=== PATIENT | male | born 1955 | race Caucasian/White ===

== ENCOUNTER 2021-11-16 05:38 | Observation (INO) | payer OTHER, SELFPAY ==
[2021-11-16] VITALS (8 sets, daily range): BP systolic 148–170; BP diastolic 83–102; PULSE 72–100; RESP 16–20; TEMP 36.1–37.1; O2SAT 94–98; BMI 18.1
--- NOTE | ~2021-11-16 | CT_ITS ---
EXAMINATION: CT CHEST WITH CONTRAST CLINICAL INFORMATION: Heavy smoker. Weight loss. COMPARISON: Previous chest x-ray May [address] February 2020 TECHNIQUE: Multidetector volumetric CT imaging of the chest was obtained after the administration of 50 mL of Omnipaque 350 intravenous contrast without immediate adverse reactions. Axial MIP volume rendering provided. Sagittal and coronal reformatted images were obtained. This CT examination was performed using dose optimization techniques as appropriate, variously including the following: *Automated exposure control *Adjustment of mA and/or kV according to patient size (this includes techniques or standardized protocols for targeted exams where dose is matched to indication/reason for exam; i.e. extremities or head) *Use of iterative reconstruction technique DLP: 163 mGy-cm FINDINGS: RESIDENT CARE SPEC: Hyperinflation LUNGS: The lungs are well inflated. There is evidence of mild emphysema. There are innumerable small peribronchial 1 to 2 mm nodules scattered areas of mild bronchial wall thickening probably representing respiratory bronchiolitis related to smoking no suspicious pulmonary nodule. This does not appear appreciably changed from prior exam. No endobronchial or endotracheal lesion. MEDIASTINUM: Atherosclerotic disease. Normal heart size. No pericardial effusion. No enlarged hilar or mediastinal lymph nodes. There is question of wall thickening of the distal thoracic esophagus and proximal stomach. PLEURA: There is no pleural effusion. No pleural mass or thickening. AXILLA: No lymphadenopathy. UPPER ABDOMEN: Unremarkable OSSEOUS STRUCTURES: There is a moderate T12 vertebral body compression fracture that may be recent. There is a mild to moderate old T7 vertebral body compression fracture. CT/CT chest w IV con IMPRESSION: Emphysema. Probable respiratory bronchiolitis related to smoking areas of bronchial wall thickening and innumerable small 1 to 2 mm peribronchial nodules. No suspicious pulmonary nodule. Atherosclerotic disease. Question mild wall thickening of the distal thoracic esophagus and proximal stomach. Fleischner guidelines were followed.
--- NOTE | ~2021-11-16 | CT_ITS ---
EXAMINATION: CT ABDOMEN AND PELVIS WITH CONTRAST CLINICAL INFORMATION: Weight loss. Vomiting. COMPARISON: None TECHNIQUE: Multidetector volumetric images were obtained from the superior aspect of the liver through the pubic symphysis following administration 100 mL of Omnipaque 350 intravenous contrast. Sagittal and coronal reformatted images were obtained on the technologist's workstation. Oral contrast: Yes This CT examination was performed using dose optimization techniques as appropriate, variously including the following: *Automated exposure control *Adjustment of mA and/or kV according to patient size (this includes techniques or standardized protocols for targeted exams where dose is matched to indication/reason for exam; i.e. extremities or head) *Use of iterative reconstruction technique DLP: 399 mGy-cm FINDINGS: LUNG BASES: The visualized lung bases are unremarkable. LIVER, GALLBLADDER, AND BILIARY TREE: The liver is normal in size, shape, and attenuation. No focal hepatic lesion or biliary ductal dilatation is present. The gallbladder is unremarkable with no evidence of radiopaque gallstones, gallbladder wall thickening, or obvious pericholecystic inflammatory changes. PANCREAS: Unremarkable. SPLEEN: Unremarkable. ADRENAL GLANDS: Unremarkable. KIDNEYS AND URETERS: The kidneys are normal in size, shape, and attenuation. No hydronephrosis, hydroureter, or calculi seen. No perinephric stranding. BLADDER: Unremarkable. GASTROINTESTINAL TRACT: The small and large bowel are unremarkable. The appendix is unremarkable. There is question of wall thickening of the proximal stomach and distal thoracic esophagus. ABDOMINAL WALL: No significant hernia is appreciated. LYMPH NODES: Shotty mediastinal and small bowel mesentery lymphadenopathy. No enlarged lymph nodes. No ascites. VASCULAR: Severe atherosclerotic disease. Mild ectasia of the upper abdominal aorta measuring 2.5 cm. No aneurysm. PELVIC VISCERA: Unremarkable. OSSEOUS STRUCTURES: Orthopedic hardware in the right proximal femur. Moderate to severe recent-appearing T12 vertebral body compression fracture. Generative changes of the spine and hip joints. CT/CT abdomen pelvis w IV con IMPRESSION: Question wall thickening of the distal esophagus and proximal stomach. Severe atherosclerotic disease. Shotty small bowel mesentery and retroperitoneal lymphadenopathy. No enlarged lymph nodes seen. Moderate to severe recent-appearing T12 compression fracture. Fleischner guidelines were followed.
--- NOTE | ~2021-11-16 | CT_ITS ---
EXAMINATION: CT SOFT TISSUE NECK WITH CONTRAST CLINICAL INFORMATION: Difficulty swallowing. Weight loss. Cachectic. COMPARISON: None available. TECHNIQUE: Multidetector helical imaging was performed in the axial plane following the administration of 100 mL of Omnipaque 350 intravenous contrast. Multiple axial reformats and coronal/sagittal reconstructions were created the technologist workstation for review. This CT examination was performed using dose optimization techniques as appropriate, variously including the following: *Automated exposure control. *Adjustment of mA and/or kV according to patient size (this includes techniques or standardized protocols for targeted exams where dose is matched to indication/reason for exam; i.e. extremities or head). *Use of iterative reconstruction technique. DLP: 871 mGy-cm FINDINGS: No significant cutaneous thickening or subcutaneous inflammation. No discrete fluid collection within the deep tissues of the neck. The premaxillary, retromaxillary, pterygopalatine fossa, orbital apical, parapharyngeal, and prelaryngeal adipose tissue is maintained. Normal appearance of the parotid, submandibular, and thyroid glands. Scattered subcentimeter lymph nodes bilaterally, none of which are pathologically enlarged or abnormally enhancing. No demonstrated focal lesion or abnormal enhancement within the intrinsic tissues of the tongue or floor of mouth. Normal mucosal contours of the pharynx and larynx without abnormal enhancement. Normal appearance of the hyoid bone, thyroid cartilage, or cartilaginous trachea. The airways remains widely patent. No radiopaque foreign bodies. The atlantooccipital and atlantoaxial articulations remain well aligned. Straightening of the normal cervical lordosis. There is fusion of the C2-C3 and C4-C5 facets. No evidence of acute fracture or subluxation of the cervical spine. The vertebral body heights are maintained. Advanced degenerative disc disease from C4-C7. Moderate degenerative disc disease at all additional cervical levels. Facet and uncovertebral joint arthropathy leads osseous encroachment on the neural foramina from C3-C7. No evidence of epidural collection. There is no prevertebral soft tissue swelling. Normal opacification of the cervical arterial and venous structures. The visualized portion of the skull base is without significant abnormalities. Limited evaluation of the intracranial structures at the skull base are notable for moderate underlying microangiopathy and generalized cerebral volume loss. Mild mucosal thickening of the paranasal sinuses. The mastoid air cells and middle ear cavities are clear. Multifocal odontogenic enamel erosions and periapical lucencies. CT Upper Chest: Moderate centrilobular emphysema of the visualized upper lungs. There are irregular subpleural reticulations and punctate pulmonary nodules scattered throughout the visualized upper lungs (better evaluated on concurrent CT of the chest). No demonstrated abnormalities of the visualized upper mediastinum. CT/CT soft tissue neck w IV con IMPRESSION: 1. No demonstrated focal lesion, collection, pathologically enlarged lymphadenopathy, or abnormal enhancement within the soft tissues of the neck. 2. Limited evaluation of the upper chest is notable for underlying emphysema with multifocal scattered subcentimeter pulmonary nodules and subpleural reticulation. Findings are better characterized on concurrent CT of the chest. 3. Moderate to advanced multilevel degenerative spondyloarthropathy of the cervical spine.
[2021-11-16 06:24] LABS: Hematocrit 42.5 % (42.0-52.0); Hemoglobin 14.9 g/dl (14.0-18.0); Mean Corpuscular HGB Conc 35.1 g/dl (31.0-36.0); Mean Corpuscular Hemoglobin 34.4 pg (27.0-33.0); Mean Corpuscular Volume 98.2 fL (80.0-98.0); Mean Platelet Volume 7.7 fL (9.4-12.4); Platelet Count 355 X10*3/uL (160-400); Red Blood Count 4.33 X10*6/uL (4.60-5.80); Red Cell Distribution Width 11.4 % (11.0-16.0); White Blood Count 6.6 X10*3/uL (4.8-10.8)
[2021-11-16 06:42] LABS: Alanine Aminotransferase 14 U/L (0-40); Alkaline Phosphatase 100 U/L (39-117); Anion Gap 17 (12-20); Aspartate Amino Transferase 17 U/L (5-37); Bilirubin Total 0.5 mg/dL (0.0-1.0); Blood Urea Nitrogen 19 mg/dL (9-16); Calcium 9.5 mg/dL (8.4-10.2); Carbon Dioxide 30 mmol/L (22-29); Chloride 87 mmol/L (96-108); Creatinine Clr Calc Pharmacy 72.1; Estimated Glomerular Filt Rate > 60; Glucose Random 140 mg/dL (60-115); Potassium 3.2 mmol/L (3.3-5.1); Sodium 131 mmol/L (135-145); Total Protein 7.1 g/dL (6.5-8.0)
--- NOTE | 2021-11-16 07:39 | ED.WEAKNESS ---
HPI - Weakness General Chief complaint: General Medical Stated complaint: feeling lethargic and weak, n/v, throat pain Time Seen by Provider: 11/16/21 07:22 Source: patient Mode of arrival: ambulatory Limitations: no limitations History of Present Illness HPI Narrative: 66 yo male with no PMH here with c/o weight loss about 30lbs, inability to tolerate PO after violent vomiting episode on Thursday. He has been a heavy smoker since he was 19. He cannot tolerate solid foods. He feels like his throat is on fire. MD Complaint: generalized weakness Onset (ago): day(s) (6) Duration: progressively worsening Location: generalized Migration: none Severity: moderate Quality: dull Relieving factors: none Exacerbating factors: other (trying to eat) Context: recent illness Associated symptoms: loss of appetite, myalgias and other (weakness, throat pain) Related Data Home Medications Medication Instructions Recorded Confirmed acetaminophen 325 mg tablet 650 mg PO Q6H PRN Back Pain 11/16/21 11/16/21 (Tylenol) amlodipine 5 mg tablet 1 tab PO DAILY 11/16/21 11/16/21 Allergies Allergy/AdvReac Type Severity Reaction Status Date / Time No Known Allergies Allergy Unverified 12/01/19 16:48 Review of Systems Review of Systems: Constitutional : No Weight loss, No Fever, No Chills, pos Fatigue, pos Malaise ENT/Mouth : pos sore throat, No Rhinorrhea Eyes: No Eye Pain, No Swelling, No Redness Cardiovascular : No Chest Pain, No SOB, No Dyspnea on Exertion, No Orthopnea, No Edema, No Palpitations Respiratory : No Cough, No Sputum, No Wheezing Gastrointestinal : pos Nausea, No Vomiting, No Diarrhea, No Constipation, No abdominal Pain, No Hematochezia, No Melena Genitourinary : No Dysuria, No Urinary Frequency, No Hematuria, Musculoskeletal : No joint pain, No Myalgias, No Joint Swelling Skin : No Skin Lesions, No rash Neuro : pos Weakness, No Numbness, No Dizziness, No Headache Psych : No Anxiety/Panic, No Depression Heme/Lymph: No Bruising, No Bleeding,No Lymphadenopathy Endocrine : No Polyuria, No Polydipsia All other systems reviewed and are negative PMFSH Past Medical History Attestation statement: The following information was validated with the patient. Medical History No pertinent past medical history Social History Social History (Updated 11/16/21 @ 08:10 by Emerald Edmonds DO) Patient Tobacco Use Status: Current everyday Tobacco user Advance Directives: No Advance Directives Information Provided: No Physical Exam Vital Signs: Vital Signs: Last Vital Signs Temp 98.7 F 11/16/21 07:24 Pulse 90 11/16/21 09:03 Resp 16 11/16/21 09:03 BP 166/92 H 11/16/21 09:03 Pulse Ox 94 11/16/21 09:03 O2 Del Method 11/16/21 09:03 BMI result Body Mass Index 18.1 Appearance: Alert. Oriented X3. No acute distress. Temporal wasting, cachectic Eyes: Pupils equal, round and reactive to light. ENT: Pharynx dry MM with moderate erythema but no patches or swelling noted Neck: Normal inspection. Neck supple. CVS: Normal heart rate and rhythm. Pulses normal. Respiratory: No respiratory distress. Breath sounds normal. Abdomen: Soft and nontender. Skin: Skin warm and dry. Normal skin color. poor skin turgor. Extremities: No lower extremity edema. No calf ttp Neuro: Oriented X 3. No motor deficit. No sensory deficit. Course Course Course Narrative: cannot take in oral - will need admission for IVF and EGD Dr. Boone notified, plan to admit put on fluids MDM - Weakness MDM Narrative Medical decision making narrative: 66 yo male with no reported PMH not on medications, heavy smoker since age 19 comes in with rapid weight loss since vomiting thursday states he cannot keep solids or most liquids down. At this tmie he will need IVF, K repletion, IV pepcid. CT scans of neck/chest/abdomen for mass/obstruction. Dispo per results and findings. Lab Data Result diagrams: 11/16/21 06:10 11/16/21 06:10 Labs: Lab Results 11/16/21 11/16/21 11/16/21 Range/Units 06:10 06:10 07:50 WBC 6.6 (4.8-10.8) X10*3/uL RBC 4.33 L (4.60-5.80) X10*6/uL Hgb 14.9 (14.0-18.0) g/dl Hct 42.5 (42.0-52.0) % MCV 98.2 H (80.0-98.0) fL MCH 34.4 H (27.0-33.0) pg MCHC 35.1 (31.0-36.0) g/dl RDW 11.4 (11.0-16.0) % Plt Count 355 (160-400) X10*3/uL MPV 7.7 L (9.4-12.4) fL Absolute Nucleated RBC 0.000 (0.0-0.012) X10*3/uL Nucleated RBC % (auto) 0.0 (0.0-0.2) /100WBC Sodium 131 L (135-145) mmol/L Potassium 3.2 L (3.3-5.1) mmol/L Chloride 87 L (96-108) mmol/L Carbon Dioxide 30 H (22-29) mmol/L Anion Gap 17 (12-20) BUN 19 H (9-16) mg/dL Creatinine 0.77 (0.5-1.4) mg/dL Estim Creat Clear Calc 72.1 Estimated GFR > 60 Random Glucose 140 H (60-115) mg/dL Lactic Acid (0.5-2.0) mmol/L Calcium 9.5 (8.4-10.2) mg/dL Magnesium 1.9 (1.6-2.6) mg/dL Total Bilirubin 0.5 (0.0-1.0) mg/dL AST 17 (5-37) U/L ALT 14 (0-40) U/L Alkaline Phosphatase 100 (39-117) U/L Total Protein 7.1 (6.5-8.0) g/dL Albumin 4.0 (3.5-5.0) g/dL Lipase 66 (8-78) U/L COVID-19 (LALITHA) Negative (Negative) COVID-19 Clin Com See Note 11/16/21 Range/Units 07:50 WBC (4.8-10.8) X10*3/uL RBC (4.60-5.80) X10*6/uL Hgb (14.0-18.0) g/dl Hct (42.0-52.0) % MCV (80.0-98.0) fL MCH (27.0-33.0) pg MCHC (31.0-36.0) g/dl RDW (11.0-16.0) % Plt Count (160-400) X10*3/uL MPV (9.4-12.4) fL Absolute Nucleated RBC (0.0-0.012) X10*3/uL Nucleated RBC % (auto) (0.0-0.2) /100WBC Sodium (135-145) mmol/L Potassium (3.3-5.1) mmol/L Chloride (96-108) mmol/L Carbon Dioxide (22-29) mmol/L Anion Gap (12-20) BUN (9-16) mg/dL Creatinine (0.5-1.4) mg/dL Estim Creat Clear Calc Estimated GFR Random Glucose (60-115) mg/dL Lactic Acid 1.7 (0.5-2.0) mmol/L Calcium (8.4-10.2) mg/dL Magnesium (1.6-2.6) mg/dL Total Bilirubin (0.0-1.0) mg/dL AST (5-37) U/L ALT (0-40) U/L Alkaline Phosphatase (39-117) U/L Total Protein (6.5-8.0) g/dL Albumin (3.5-5.0) g/dL Lipase (8-78) U/L COVID-19 (LALITHA) (Negative) COVID-19 Clin Com Discharge Plan Discharge Clinical Impression: Adult failure to thrive, Acute dehydration, Acute hypokalemia, Esophagitis Patient Disposition: Admitted As Inpatient
[2021-11-16] MEDS: Famotidine/PF 20 MG/2 ML VIAL IVPUSH (07:58)
[2021-11-16] MEDS: Potassium Chloride/H20 10 MEQ/100 ML PIGGYBACK 100 MEQ IV ×4 (08:02→12:16)
[2021-11-16] MEDS: Lactated Ringers 1,000 ML 999 ML IV (08:02)
[2021-11-16 08:12] LABS: COVID-19 Test Negative (Negative); IDNOW Serial# 16C4AD1C
[2021-11-16 08:15] LABS: Lactic Acid 1.7 mmol/L (0.5-2.0)
[2021-11-16 08:19] LABS: Magnesium 1.9 mg/dL (1.6-2.6)
[2021-11-16 08:49] LABS: Lipase 66 U/L (8-78)
[2021-11-16] MEDS: iohexoL 350 MG/ML 100 ML INFUS..BTL IV (08:59)
[2021-11-16] MEDS: Lactated Ringers 1,000 ML 100 ML IVCONT ×2 (11:01→21:25)
[2021-11-16] MEDS: Pantoprazole Sodium 40 MG/10 ML VIAL IVPUSH ×2 (11:01→17:53)
--- NOTE | 2021-11-16 11:01 | PHA.MEDREC ---
Pharmacy Consult ? Medication Reconciliation Pharmacy has completed the medication reconciliation.
[2021-11-16 12:40] LABS: INTERNATIONAL NORM RATIO 0.9 (0.9-1.1); Prothrombin Time 10.8 SEC (10.0-13.1)
[2021-11-16 12:42] LABS: Partial Thromboplastin Time 28.2 SEC (26.0-36.4)
--- NOTE | 2021-11-16 13:49 | PM.IMHP ---
History of Present Illness Date of Service: 11/16/21 Chief Complaint: throat pain 66-year-old man presented to the ER with complaints of poor appetite, nausea, vomiting and throat pain. He reports started on Thursday where he had several violent vomiting episodes. He denies any recent travel, sick contacts or probably cut foods. He is unsure if he ate something that was pad but since then he reports that he has not been able to eat anything and he feels like he has lost roughly 30 lb since then. He reports being active without having any gastrointestinal issues prior to Thursday. He is a heavy smoker smoking 2 packs cigarettes a day and drinks approximately 5 beers a day with last drink being approximately 4 days ago he denied any recent fever, chills, chest pain, shortness of breath. in the ER, chest CT showed emphysema with respiratory bronchiolitis and mild wall thickening of the distal thoracic esophagus and proximal stomach. Multiple external abnormalities noted including sodium of 131, potassium 3.2. Mildly elevated blood pressure with highest reading of 169/98. He has had no further episodes of nausea or vomiting. He has been given IV potassium, IV fluids and PPI. He will be admitted for further management and treatment of gastritis. Review of Systems Review of Systems: Denies any recent fever chills or decrease in appetite respiratory denies any shortness of breath coverage production cardiovascular Denies chest pain gastrointestinal denies any dysphagia abdominal pain nausea vomiting or diarrhea genitourinary denies any dysuria frequency or hematuria musculoskeletal denies any joint pain or swelling neuropsych denies any weakness or seizures all other systems reviewed are negative [facility] Medical History No pertinent past medical history Family History (Updated 11/16/21 @ 13:55 by Carito Barrera NP) Mother Lung cancer Sister Lung cancer Social History (Updated 11/16/21 @ 08:10 by Emerald Edmonds DO) Patient Tobacco Use Status: Current everyday Tobacco user Advance Directives: No Advance Directives Information Provided: No Meds Allergies Allergy/AdvReac Type Severity Reaction Status Date / Time No Known Allergies Allergy Unverified 12/01/19 16:48 Active Medications: Current Medications Acetaminophen (Acetaminophen 325 Mg Tablet) 650 mg PO Q6H PRN PRN Reason: Pain, Mild (Pain Scale 1-3) Enoxaparin Sodium (Enoxaparin Sodium 40 Mg/0.4 Ml Syringe) 40 mg SUBCUT Q24H [facility] [place] Lactated Ringer's (Lr) 1,000 mls @ 100 mls/hr IVCONT .Q10H [facility] Last Admin: 11/16/21 11:01 Dose: 100 mls/hr Ondansetron HCl (Ondansetron Hcl 4 Mg/2 Ml Vial) 4 mg IVPUSH Q8H PRN PRN Reason: Nausea and Vomiting Pharmacy Consult (Consult Rx Perform Med Rec) 1 each MISCELLANE ONCE PRN PRN Reason: Consult order Sodium Chloride (0.9 % Sodium Chloride Flush 3 Ml Syringe) 3 ml IVFLUSH QSHIFT [facility] [place] Home Medications Medication Instructions Recorded Confirmed Last Taken Type acetaminophen 325 mg tablet 650 mg PO Q6H PRN Back Pain 11/16/21 11/16/21 11/16/21 History (Tylenol) amlodipine 5 mg tablet 1 tab PO DAILY 11/16/21 11/16/21 11/15/21 History Physical Exam Vital Signs and Narrative: Vital Signs: Last Vital Signs Temp 98.7 F 11/16/21 07:24 Pulse 90 11/16/21 12:18 Resp 19 11/16/21 12:18 BP 168/98 H 11/16/21 12:18 Pulse Ox 94 11/16/21 12:18 O2 Del Method 11/16/21 12:18 BMI result Body Mass Index 18.1 Appearing in no acute distress head is normocephalic atraumatic eyes pupils are PERRLA sclera is anicteric mouth throat mucous membranes are intact and moist neck is supple no lymphadenopathy, no JVD noted lung sounds are clear to auscultation heart regular rate rhythm, clear S1, S2 positive bowel sounds, abdomen is soft, nontender neuro patient is alert x3, no focal deficits Results Labs CBC and Chem 7: 11/16/21 06:10 11/16/21 06:10 Labs: Laboratory Results - last 24 hr 11/16/21 11/16/21 11/16/21 06:10 06:10 07:50 MCV 98.2 H MCH 34.4 H MCHC 35.1 RDW 11.4 Plt Count 355 MPV 7.7 L Absolute Nucleated RBC 0.000 Nucleated RBC % (auto) 0.0 PT INR APTT Anion Gap 17 Estim Creat Clear Calc 72.1 Estimated GFR > 60 Random Glucose 140 H Lactic Acid Calcium 9.5 Magnesium 1.9 Total Bilirubin 0.5 AST 17 ALT 14 Alkaline Phosphatase 100 Total Protein 7.1 Albumin 4.0 Lipase 66 COVID-19 (LALITHA) Negative COVID-19 Clin Com See Note 11/16/21 11/16/21 07:50 12:26 MCV MCH MCHC RDW Plt Count MPV Absolute Nucleated RBC Nucleated RBC % (auto) PT 10.8 INR 0.9 APTT 28.2 Anion Gap Estim Creat Clear Calc Estimated GFR Random Glucose Lactic Acid 1.7 Calcium Magnesium Total Bilirubin AST ALT Alkaline Phosphatase Total Protein Albumin Lipase COVID-19 (LALITHA) COVID-19 Clin Com Imaging Radiologist's Impressions: Impressions Abdomen/Pelvis CT 11/16/21 08:45 IMPRESSION: Question wall thickening of the distal esophagus and proximal stomach. Severe atherosclerotic disease. Shotty small bowel mesentery and retroperitoneal lymphadenopathy. No enlarged lymph nodes seen. Moderate to severe recent-appearing T12 compression fracture. Fleischner guidelines were followed. Chest CT 11/16/21 08:45 IMPRESSION: Emphysema. Probable respiratory bronchiolitis related to smoking areas of bronchial wall thickening and innumerable small 1 to 2 mm peribronchial nodules. No suspicious pulmonary nodule. Atherosclerotic disease. Question mild wall thickening of the distal thoracic esophagus and proximal stomach. Fleischner guidelines were followed. Soft Tissue Neck CT 11/16/21 08:45 IMPRESSION: 1. No demonstrated focal lesion, collection, pathologically enlarged lymphadenopathy, or abnormal enhancement within the soft tissues of the neck. 2. Limited evaluation of the upper chest is notable for underlying emphysema with multifocal scattered subcentimeter pulmonary nodules and subpleural reticulation. Findings are better characterized on concurrent CT of the chest. 3. Moderate to advanced multilevel degenerative spondyloarthropathy of the cervical spine. Assessment and Plan (1) Esophagitis: Status: Acute Plan 66-year-old man admitted with esophagitis likely secondary to vomiting that started on Thursday with reported 30 lb weight loss. Esophagitis. Secondary to vomiting Magic mouthwash for mouth and throat pain, IV ppi, GI consultation for EGD None CT scan noted some thickening, there may be a question of malignancy with history of heavy smoking Clear liquid diet for now as tolerated Hyponatremia/hypokalemia Secondary to vomiting Replace and follow BMP Elevated blood pressure readings History of hypertension Follow blood pressure Smoker discussed the importance of smoking cessation NRT offered DVT prophylaxis Christophx Attending Dr. Ortiz Full code Patient likely requires 2 midnights for treatment of acute Esophagitis, will need EGD for further assessment of esophageal wall thickening and treatment for multiple electrolyte abnormalities. Quality Stroke Does the patient have a stroke diagnosis?: No VTE Prior VTE?: No VTE Risk Level:: Medical - moderate - high VTE Device Contraindication: Treatment Not Indicated VTE Drug Contraindication: N/A - Med Ordered
[2021-11-16] MEDS: Enoxaparin Sodium 40 MG/0.4 ML SYRINGE SUBCUT (14:47)
[2021-11-16] MEDS: amLODIPine Besylate 5 MG TABLET PO (17:53)
[2021-11-16] MEDS: Acetaminophen 325 MG TABLET 650 MG PO (21:24)
[2021-11-17 03:21] VITALS: BP 174/86; PULSE 78; RESP 20; TEMP 36.2; O2SAT 94
[2021-11-17] MEDS: Pantoprazole Sodium 40 MG/10 ML VIAL IVPUSH ×2 (06:01→15:27)
[2021-11-17] MEDS: Mag&Al/Sim/Diphenhyd/Lidocaine 10 ML ORAL.SUSP PO ×4 (06:07→21:01)
[2021-11-17 06:14] LABS: MANUAL DIFF FLAG NO
[2021-11-17 06:17] LABS: Basophils Percent Auto 0.5 % (0-2); Eosinophils Percent Auto 0.3 % (0-4); Hematocrit 39.8 % (42.0-52.0); Hemoglobin 14.1 g/dl (14.0-18.0); Imm Gran Abs Auto 0.04 X10*3/uL (0.00-0.03); Imm Gran Pct Auto 0.6 % (0.0-0.4); Lymphocytes Absolute Auto 1.3 X10*3/uL (1.2-4.9); Mean Corpuscular HGB Conc 35.4 g/dl (31.0-36.0); Mean Corpuscular Hemoglobin 34.8 pg (27.0-33.0); Mean Corpuscular Volume 98.3 fL (80.0-98.0); Mean Platelet Volume 7.8 fL (9.4-12.4); Monocytes Absolute Auto 0.7 X10*3/uL (0.1-1.2); Monocytes Percent Auto 10.2 % (2-11); Neutrophils Absolute Auto 4.5 x10*3/uL (2.0-8.3); Neutrophils Percent Auto 68.4 % (45-73); Platelet Count 276 X10*3/uL (160-400); Red Blood Count 4.05 X10*6/uL (4.60-5.80); Red Cell Distribution Width 11.5 % (11.0-16.0); White Blood Count 6.5 X10*3/uL (4.8-10.8)
[2021-11-17 06:36] LABS: Anion Gap 15 (12-20); Blood Urea Nitrogen 7 mg/dL (9-16); Calcium 8.4 mg/dL (8.4-10.2); Carbon Dioxide 29 mmol/L (22-29); Chloride 90 mmol/L (96-108); Creatinine Clr Calc Pharmacy 100.9; Estimated Glomerular Filt Rate > 60; Glucose Random 80 mg/dL (60-115); Potassium 3.3 mmol/L (3.3-5.1); Sodium 131 mmol/L (135-145)
--- NOTE | 2021-11-17 07:13 | P.CNGI_ITS ---
History of Present Illness Data of Consult Service Date: 11/17/21 Requesting physician: Dennys Saleh Primary Care Provider: None Physician HPI Reason for consult: weight loss, abn imaging 66 yr old m with hx of HTN and tobacco use being see for abn imaging and weight loss hx from patient and his He feesl symptoms were bad since last week when he noted poor appetite with nausea and acid regurgitation without any blood. He also has throat pain and pain swallowing. Lost few months he has lost maybe 20# in weight with difficulty swallowing solids but ok with liquids. He denies abdominal pain, no melena or rectal bleeding, has some hard stool today, never had diarrhea, not using nsaids and no sick contacts. He is a heavy smoker smoking 2 packs cigarettes a day and drinks approximately 5 beers a day with last drink being approximately 4 days ago he denied any recent fever, chills, chest pain, shortness of breath Labs with hyponatremia, HGB is normal Imaging: CT showed emphysema with respiratory bronchiolitis and mild wall thickening of the distal thoracic esophagus and proximal stomach Review of Systems Review of Systems: Constitutional : + Weight loss, No Fever, No Chills ENT/Mouth : No sore throat, No Rhinorrhea Eyes: No Swelling, No Redness Cardiovascular : No Chest Pain, No SOB, No Edema Respiratory : No Cough, No Sputum, No Wheezing Gastrointestinal : see HPI Genitourinary : NO Dysuria, No Urinary Frequency, No Hematuria, No Urgency Musculoskeletal : No joint pain, No Myalgias, No Joint Swelling Skin : No Skin Lesions, No rash Neuro : No Weakness, No Numbness, No Dizziness, No Headache Psych : No Anxiety/Panic, No Depression Heme/Lymph: + Bruising, No Lymphadenopathy Endocrine : No Polyuria, No Polydipsia All other systems reviewed and are negative. [facility], LAT[facility] Past Medical History Medical History No pertinent past medical history Family History Family History Mother Lung cancer Sister Lung cancer Social History Social History Household Members: Spouse Housing: Apartment Do you presently have visiting nurse or other home services: No Patient Tobacco Use Status: Former Tobacco user Quit Date: using patch since July Tobacco use type: Cigarette Cigarettes Per Day: 1 Smoked in Last 30 Days: Yes Use of substances other than those prescribed or required for medical reasons: No Currently Displaying Signs/Symptoms of Drug Intoxication Withdrawal: No Have you been hit, kicked, punched, or otherwise hurt by someone within the past year? If so, by whom?: No Do you feel safe in your current relationship?: Yes Is there a partner from a previous relationship who is making you feel unsafe now?: No Are you made to feel afraid or neglected: No [employer] Healthcare Practices: n/a Advance Directives: No Advance Directives Information Provided: No Do you have thoughts of harming others: None Do you have a plan to hurt others: No Plan Recently lost weight without trying: Yes How much weight loss: 24-33 pounds Eating poorly because of decreased appetite: Yes Nutrition screen score: 6 Nutrition Risks: Difficulty swallowing Poor oral hygiene: No Meds Allergies Allergy/AdvReac Type Severity Reaction Status Date / Time No Known Allergies Allergy Unverified 12/01/19 16:48 Active Medications: Current Medications Acetaminophen (Acetaminophen 325 Mg Tablet) 650 mg PO Q6H PRN PRN Reason: Pain, Mild (Pain Scale 1-3) Last Admin: 11/16/21 21:24 Dose: 650 mg Acetaminophen (Acetaminophen 325 Mg Tablet) 650 mg PO Q6H PRN PRN Reason: Back Pain Amlodipine Besylate (Amlodipine Besylate 5 Mg Tablet) 5 mg PO DAILY TRAN; Protocol Last Admin: 11/16/21 17:53 Dose: 5 mg Enoxaparin Sodium (Enoxaparin Sodium 40 Mg/0.4 Ml Syringe) 40 mg SUBCUT Q24H TRAN Last Admin: 11/16/21 14:47 Dose: 40 mg Lactated Ringer's (Lr) 1,000 mls @ 100 mls/hr IVCONT .Q10H TRAN Last Admin: 11/16/21 21:25 Dose: 100 mls/hr Lidocaine/Diphenhydr/Alum/Mg/Simeth (Mag&Al/Sim/Diphenhyd/Lidocaine 10 Ml Oral.Susp) 10 ml PO Q4H PRN; Protocol PRN Reason: throat pain Last Admin: 11/17/21 06:07 Dose: 10 ml Ondansetron HCl (Ondansetron Hcl 4 Mg/2 Ml Vial) 4 mg IVPUSH Q8H PRN PRN Reason: Nausea and Vomiting Pantoprazole Sodium (Pantoprazole Sodium 40 Mg/10 Ml Vial) 40 mg IVPUSH BID@0630,1630 [facility] Last Admin: 11/17/21 06:01 Dose: 40 mg Pharmacy Consult (Consult Rx Perform Med Rec) 1 each MISCELLANE ONCE PRN PRN Reason: Consult order Sodium Chloride (0.9 % Sodium Chloride Flush 3 Ml Syringe) 3 ml IVFLUSH QSHIFT [facility] Last Admin: 11/17/21 02:37 Dose: Not Given Home Medications Medication Instructions Recorded Confirmed Last Taken Type acetaminophen 325 mg tablet 650 mg PO Q6H PRN Back Pain 11/16/21 11/16/21 11/16/21 History (Tylenol) amlodipine 5 mg tablet 1 tab PO DAILY 11/16/21 11/16/21 11/15/21 History Physical Exam Vital Signs: Vital Signs: Last Vital Signs Temp 97.2 F 11/17/21 03:21 Pulse 78 11/17/21 03:21 Resp 20 11/17/21 03:21 BP 174/86 H 11/17/21 03:21 Pulse Ox 94 11/17/21 03:21 O2 Del Method 11/17/21 03:21 BMI result Body Mass Index 18.1 EXAM: GENERAL: The patient is thin VITAL SIGNS:see workflow HEENT: Nonicteric sclerae, PERRLA, EOMI. Oropharynx clear. Moist mucous mem branes. Conjunctivae appear well perfused. No thyroid mass. CHEST: Chest wall is nontender. HEART: Regular rate and rhythm without murmurs. LUNGS: Clear to auscultation bilaterally, hyperinflated chest with reduced air entry b/l. ABDOMEN: Soft, positive bowel sounds, nontender, no organomegaly.no flank tenderness SKIN: No rash, no excessive bruising, petechiae, or purpura. NEUROLOGIC: Cranial nerves II-XII intact without motor/sensory deficit. psych: nml affect Results Labs CBC & Chem 7: 11/17/21 05:57 11/17/21 05:57 Labs: Short CBC 11/17/21 Range/Units 05:57 WBC 6.5 (4.8-10.8) X10*3/uL Hgb 14.1 (14.0-18.0) g/dl Hct 39.8 L (42.0-52.0) % Plt Count 276 (160-400) X10*3/uL BMP 11/17/21 05:57 Sodium 131 L Potassium 3.3 Chloride 90 L Carbon Dioxide 29 BUN 7 L D Creatinine 0.55 [address]cium [address] scan - chest: Attestation: I personally reviewed and interpreted this imaging study as follows: (thickened esophagus and prox stomach, atherosclerosis, hyperinflated chest ) Assessment and Plan (1) Esophagitis: Status: Acute Plan 1/ Weight loss and thickened esophagus on imaging with strong smoking hx, concern is for esophageal or proximal stomach cancer, ddx; ulcer, esophagitis inflammatory or infectious 2/ Hyponatremia, seems chronic, ? due to underlying neoplasia. ddx; addisons, pituitary disease PLAN: 1/ EGD tomorrow 2/ can have clears til midnight 3/ check urine and serum osmolality, urine na, cortisol Procedures Date of Service Date of Service: 11/17/21
[2021-11-17 08:00] VITALS: BP 154/86; PULSE 81; RESP 20; TEMP 36.7; O2SAT 98
--- NOTE | 2021-11-17 08:41 | P.PNIM_ITS ---
Subjective Subjective Date of Service: 11/17/21 Review of Systems Follow-up esophagitis Still with some pain but better No further nausea or vomiting Physical Exam Vital Signs: Vital Signs: Last Vital Signs Temp 98.1 F 11/17/21 08:00 Pulse 81 11/17/21 08:00 Resp 20 11/17/21 08:00 BP 154/86 H 11/17/21 08:00 Pulse Ox 98 11/17/21 08:00 O2 Del Method 11/17/21 08:00 BMI result Body Mass Index 18.1 Appearing in no acute distress lung sounds are clear to auscultation heart regular rate rhythm, clear S1, S2 positive bowel sounds, abdomen is soft, nontender neuro patient is alert x3, no focal deficits Objective Data Active Medications Acetaminophen (Acetaminophen 325 Mg Tablet) 650 mg PO Q6H PRN PRN Reason: Pain, Mild (Pain Scale 1-3) Last Admin: 11/16/21 21:24 Dose: 650 mg Documented By: VIOLETTA Acetaminophen (Acetaminophen 325 Mg Tablet) 650 mg PO Q6H PRN PRN Reason: Back Pain Amlodipine Besylate (Amlodipine Besylate 5 Mg Tablet) 5 mg PO DAILY TRAN; Protocol Last Admin: 11/16/21 17:53 Dose: 5 mg Documented By: MARSHA Enoxaparin Sodium (Enoxaparin Sodium 40 Mg/0.4 Ml Syringe) 40 mg SUBCUT Q24H [facility] Last Admin: 11/16/21 14:47 Dose: 40 mg Documented By: JAVED Lactated Ringer's (Lr) 1,000 mls @ 100 mls/hr IVCONT .Q10H [facility] Last Admin: 11/16/21 21:25 Dose: 100 mls/hr Documented By: VIOLETTA Lidocaine/Diphenhydr/Alum/Mg/Simeth (Mag&Al/Sim/Diphenhyd/Lidocaine 10 Ml Oral.Susp) 10 ml PO Q4H PRN; Protocol PRN Reason: throat pain Last Admin: 11/17/21 06:07 Dose: 10 ml Documented By: VIOLETTA Ondansetron HCl (Ondansetron Hcl 4 Mg/2 Ml Vial) 4 mg IVPUSH Q8H PRN PRN Reason: Nausea and Vomiting Pantoprazole Sodium (Pantoprazole Sodium 40 Mg/10 Ml Vial) 40 mg IVPUSH BI D@0630,6480 [facility] Last Admin: 11/17/21 06:01 Dose: 40 mg Documented By: VIOLETTA Pharmacy Consult (Consult Rx Perform Med Rec) 1 each MISCELLANE ONCE PRN PRN Reason: Consult order Sodium Chloride (0.9 % Sodium Chloride Flush 3 Ml Syringe) 3 ml IVFLUSH QSHIFT [facility] Last Admin: 11/17/21 02:37 Dose: Not Given Documented By: VIOLETTA Non-Admin Reason: IV Running Labs CBC & Chem 7: 11/17/21 05:57 11/17/21 05:57 Labs: Laboratory Results - last 24 hr 11/16/21 11/16/21 11/17/21 06:10 12:26 05:57 MCV 98.3 H MCH 34.8 H MCHC 35.4 RDW 11.5 Plt Count 276 MPV 7.8 L Immature Gran % (Auto) 0.6 H Neut % (Auto) 68.4 Lymph % (Auto) 20.0 [place] % (Auto) 10.2 Eos % (Auto) 0.3 Baso % (Auto) 0.5 Lymph # (Auto) 1.3 Newton # (Auto) 0.7 Eos # (Auto) 0.0 Baso # (Auto) 0.0 Abs Immat Gran (auto) 0.04 H Absolute Neuts (auto) 4.5 Absolute Nucleated RBC 0.000 Nucleated RBC % (auto) 0.0 PT 10.8 INR 0.9 APTT 28.2 Anion Gap Estim Creat Clear Calc Estimated GFR Random Glucose Calcium Lipase 66 11/17/21 05:57 MCV MCH MCHC RDW Plt Count MPV Immature Gran % (Auto) Neut % (Auto) Lymph % (Auto) Newton % (Auto) Eos % (Auto) Baso % (Auto) Lymph # (Auto) Newton # (Auto) Eos # (Auto) Baso # (Auto) Abs Immat Gran (auto) Absolute Neuts (auto) Absolute Nucleated RBC Nucleated RBC % (auto) PT INR APTT Anion Gap 15 Estim Creat Clear Calc 100.9 Estimated GFR > 60 Random Glucose 80 D Calcium 8.4 D Lipase Assessment and Plan (1) Esophagitis: Status: Acute Plan 66-year-old man admitted with esophagitis? likely secondary to vomiting that started on Thursday with reported 30 lb weight loss. Esophagitis.? Secondary to vomiting Magic mouthwash for mouth and throat pain, IV ppi, GI consultation for EGD None CT scan noted some thickening, there may be a question of malignancy with history of heavy smoking Clear liquid diet for now as tolerated Hyponatremia/hypokalemia. Resolving Secondary to vomiting Replace and follow BMP Elevated blood pressure readings History of hypertension Continue amlodipine Follow blood pressure Smoker discussed the importance of smoking cessation NRT offered DVT prophylaxis Lovenox Attending Dr. Ortiz Full code ?Patient requires continued hospitalization for treatment of acute Esophagitis, will need EGD for further assessment of esophageal wall thickening and treatment for multiple electrolyte abnormalities Quality Stroke Does the patient have a stroke diagnosis?: No VTE Prior VTE?: No VTE Risk Level:: Medical - moderate - high VTE Device Contraindication: Treatment Not Indicated VTE Drug Contraindication: N/A - Med Ordered
[2021-11-17] MEDS: amLODIPine Besylate 5 MG TABLET PO (09:12)
[2021-11-17] MEDS: Lactated Ringers 1,000 ML 100 ML IVCONT ×2 (09:12→18:34)
[2021-11-17] MEDS: Acetaminophen 325 MG TABLET 650 MG PO ×3 (09:12→21:00)
[2021-11-17 11:39] VITALS: BP 170/90; PULSE 85; RESP 20; TEMP 36.5; O2SAT 97
--- NOTE | 2021-11-17 12:58 | MHC.CM.PN ---
CM ATTEMPTED TO SEE PT WHO WAS SLEEPING CM TO RETURN
[2021-11-17] MEDS: Enoxaparin Sodium 40 MG/0.4 ML SYRINGE SUBCUT (15:26)
[2021-11-17 15:36] VITALS: BP 172/87; PULSE 85; RESP 20; TEMP 36.7; O2SAT 96
[2021-11-17] MEDS: Nicotine 21 MG PATCH.TD24 TRANSDERMA (16:51)
[2021-11-17 20:00] VITALS: BP 180/99; PULSE 80; RESP 18; TEMP 36.7; O2SAT 96
[2021-11-17 23:39] VITALS: BP 151/82; PULSE 81; RESP 17; TEMP 36.5; O2SAT 97
[2021-11-18] VITALS (8 sets, daily range): BP systolic 138–180; BP diastolic 77–99; PULSE 83–107; RESP 17–20; TEMP 36.1–37.8; O2SAT 92–97
[2021-11-18] MEDS: Mag&Al/Sim/Diphenhyd/Lidocaine 10 ML ORAL.SUSP PO ×3 (03:23→14:24)
[2021-11-18] MEDS: Lactated Ringers 1,000 ML 100 ML IVCONT (03:24)
[2021-11-18] MEDS: Pantoprazole Sodium 40 MG/10 ML VIAL IVPUSH (06:02)
[2021-11-18] MEDS: amLODIPine Besylate 5 MG TABLET PO (08:26)
--- NOTE | 2021-11-18 08:36 | MHC.SHP ---
Pre-Procedural Eval Section A Date of Service: 11/18/21 The patient is an INPATIENT: Yes The History & Physical has been completed within 30 days and I have reviewed it.: Yes Section B Chief Complaint: Esophagitis Allergies: Allergies Allergy/AdvReac Type Severity Reaction Status Date / Time No Known Allergies Allergy Unverified 12/01/19 16:48 Plan I have reviewed the history and physical and performed a pertinent physical examination on my patient. No changes have occurred unless specified.
--- NOTE | 2021-11-18 09:40 | HO.PM.IMPN ---
Subjective Subjective Date of Service: 11/18/21 Review of Systems Follow-up esophagitis Still with some pain but better No further nausea or vomiting lower back pain Physical Exam Vital Signs: Vital Signs: Last Vital Signs Temp 99.7 F 11/18/21 07:46 Pulse 89 11/18/21 07:46 Resp 17 11/18/21 07:46 BP 180/88 H 11/18/21 07:46 Pulse Ox 97 11/18/21 07:46 O2 Del Method 11/18/21 07:46 BMI result Body Mass Index 18.1 Appearing in no acute distress lung sounds are clear to auscultation heart regular rate rhythm, clear S1, S2 positive bowel sounds, abdomen is soft, nontender neuro patient is alert x3, no focal deficits Objective Data Active Medications Acetaminophen (Acetaminophen 325 Mg Tablet) 650 mg PO Q6H PRN PRN Reason: Pain, Mild (Pain Scale 1-3) Last Admin: 11/17/21 21:00 Dose: 650 mg Documented By: VIOLETTA Acetaminophen (Acetaminophen 325 Mg Tablet) 650 mg PO Q6H PRN PRN Reason: Back Pain Amlodipine Besylate (Amlodipine Besylate 5 Mg Tablet) 5 mg PO DAILY [facility]; Protocol Last Admin: 11/18/21 08:26 Dose: 5 mg Documented By: JACQUES Enoxaparin Sodium (Enoxaparin Sodium 40 Mg/0.4 Ml Syringe) 40 mg SUBCUT Q24H [facility] Last Admin: 11/17/21 15:26 Dose: 40 mg Documented By: MARSHA Lactated Ringer's (Lr) 1,000 mls @ 100 mls/hr IVCONT .Q10H [facility] Last Admin: 11/18/21 03:24 Dose: 100 mls/hr Documented By: VIOLETTA Lidocaine/Diphenhydr/Alum/Mg/Simeth (Mag&Al/Sim/Diphenhyd/Lidocaine 10 Ml Oral.Susp) 10 ml PO Q4H PRN; Protocol PRN Reason: throat pain Last Admin: 11/18/21 06:08 Dose: 10 ml Documented By: VIOLETTA Nicotine (Nicotine 21 Mg Patch.Td24) 21 mg TRANSDERMA DAILY [facility] Last Admin: 11/17/21 16:51 Dose: 21 mg Documented By: MARSHA Ondansetron HCl (Ondansetron Hcl 4 Mg/2 Ml Vial) 4 mg IVPUSH Q8H PRN PRN Reason: Nausea and Vomiting Pantoprazole Sodium (Pantoprazole Sodium 40 Mg/10 Ml Vial) 40 mg IVPUSH BID@0630,1630 [facility] Last Admin: 11/18/21 06:02 Dose: 40 mg Documented By: VIOLETTA Pharmacy Consult (Consult Rx Perform Med Rec) 1 each MISCELLANE ONCE PRN PRN Reason: Consult order Sodium Chloride (0.9 % Sodium Chloride Flush 3 Ml Syringe) 3 ml IVFLUSH QSHIFT [facility] Last Admin: 11/18/21 08:26 Dose: Not Given Documented By: JACQUES Non-Admin Reason: IV Running Labs CBC & Chem 7: 11/17/21 05:57 11/17/21 05:57 Microbiology Microbiology Results: Microbiology 11/16/21 07:50 Blood Culture - Preliminary Blood - Venous No growth after 24 hours. 11/16/21 07:50 Blood Culture - Preliminary Blood - Venous No growth after 24 hours. Assessment and Plan (1) Esophagitis: Status: Acute Plan 66-year-old man admitted with esophagitis? likely secondary to vomiting that started on Thursday with reported 30 lb weight loss. Esophagitis.? Secondary to vomiting Magic mouthwash for mouth and throat pain, IV ppi s/p EGD showing duodenitis with probable peptic ulcer, gastritis, esophagitis and hiatal hernia Plan is for smoking cessation, high-dose PPI 40 mg b.i.d. for 3 months with repeat EGD at that time Biopsy results pending bland diet History of hypertension increase amlodipine to 10mg daily Follow blood pressure Back pain lidocaine patch Hyponatremia/hypokalemia. Resolving Secondary to vomiting Replace and follow BMP Smoker discussed the importance of smoking cessation NRT offered DVT prophylaxis [employer] Attending Dr. Ortiz Full code ?Patient requires continued hospitalization for treatment of acute Esophagitis, will need EGD for further assessment of esophageal wall thickening and treatment for multiple electrolyte abnormalities Quality Stroke Does the patient have a stroke diagnosis?: No VTE Prior VTE?: No VTE Risk Level:: Medical - moderate - high VTE Device Contraindication: Treatment Not Indicated VTE Drug Contraindication: N/A - Med Ordered
[2021-11-18] MEDS: Lidocaine 4 % Patch ADH..PATCH 1 PATCH TRANSDERMA (10:02)
--- NOTE | 2021-11-18 10:29 | W.PM.OPN ---
Operative Note Operative Note Date of Service: 11/18/21 Narrative: Procedure Description: EGD Indication: dysphagia, weight loss Anesthesia: MAC FLEXIBLE TRANSORAL UPPER GASTROINTESTINAL ENDOSCOPY UPPER ENDOSCOPY Consent: Indications for the procedure and potential complications of bleeding, perforation, reaction to medications and missed diagnosis were discussed with the patient and informed consent was obtained. Instrument: Olympus GIF H 190 J mid size upper endoscope Monitoring: Vital signs and clinical assessment, continuous EKG monitoring, Pulse oximetry, Carbon Dioxide monitoring and blood pressure monitoring were done throughout the procedure. Procedure: The patient was placed in the left lateral decubitis position and pre-procedure medications were administered and a bite block was placed. The endoscope was inserted into the mouth and advanced under direct vision to the third part of duodenum. A careful inspection was made as the upper endoscope was withdrawn including a retroflexed examination of the proximal stomach; Findings and interventions are described below. Findings: Larynx:normal Esophagus: GE junction at 38 cm, diaphragm hiatus at 40 cm, consistent with 2 cm sliding hiatal hernia. LA grade D esophagitis with inflammation and whitish yellow exudate for 10 cm. Biopsies taken from GEJ, distal and proximal esophagus. Stomach: Patchy gastric erythema. Biopsies were obtained. Grade 2 flap valve on retroflexed examination of the cardia. Duodenum: flattening of mucosa, erosions. erythema, bx taken Intervention: Biopsies as noted above Impression/Findings: duodenitis probably peptic gastritis esophagitis hiatal hernia PLAN: smoking cessation high dose PPI e.g pantoprazole 40 mg BID for 3 months and repeat EGD to check for barretts. reflux precautions if ruy pos on bx then treat with fluconazole and check for HIV
--- NOTE | 2021-11-18 10:46 | P.CONAN_ITS ---
HPI - Anesthesia Eval Consult details Narrative: 66 M for EGD PMFSH Active Problems Active Problems: All Active Problems (Updated 11/16/21 @ 11:51 by Emerald Edmonds DO) Adult failure to thrive (Acute) Acute dehydration (Acute) Acute hypokalemia (Acute) Esophagitis (Acute) Past Medical History Medical History No pertinent past medical history Family History Family History Mother Lung cancer Sister Lung cancer Family history of problems with anesthesia: No Surgical History History of Problems with Anesthesia: No Social History Social History Household Members: Spouse Housing: Apartment Do you presently have visiting nurse or other home services: No Patient Tobacco Use Status: Former Tobacco user Quit Date: using patch since July Tobacco use type: Cigarette Cigarettes Per Day: 1 Smoked in Last 30 Days: Yes Use of substances other than those prescribed or required for medical reasons: No Currently Displaying Signs/Symptoms of Drug Intoxication Withdrawal: No Have you been hit, kicked, punched, or otherwise hurt by someone within the past year? If so, by whom?: No Do you feel safe in your current relationship?: Yes Is there a partner from a previous relationship who is making you feel unsafe now?: No Are you made to feel afraid or neglected: No [employer] Healthcare Practices: n/a Advance Directives: No Advance Directives Information Provided: No Do you have thoughts of harming others: None Do you have a plan to hurt others: No Plan Recently lost weight without trying: Yes How much weight loss: 24-33 pounds Eating poorly because of decreased appetite: Yes Nutrition screen score: 6 Nutrition Risks: Difficulty swallowing Poor oral hygiene: No Meds Allergies Allergy/AdvReac Type Severity Reaction Status Date / Time No Known Allergies Allergy Unverified 12/01/19 16:48 Active Medications: Current Medications Acetaminophen (Acetaminophen 325 Mg Tablet) 650 mg PO Q6H PRN PRN Reason: Pain, Mild (Pain Scale 1-3) Last Admin: 11/17/21 21:00 Dose: 650 mg Acetaminophen (Acetaminophen 325 Mg Tablet) 650 mg PO Q6H PRN PRN Reason: Back Pain Amlodipine Besylate (Amlodipine Besylate 5 Mg Tablet) 5 mg PO DAILY [facility]; Protocol Last Admin: 11/18/21 08:26 Dose: 5 mg Enoxaparin Sodium (Enoxaparin Sodium 40 Mg/0.4 Ml Syringe) 40 mg SUBCUT Q24H [facility] Last Admin: 11/17/21 15:26 Dose: 40 mg Lidocaine (Lidocaine 4 % Patch Adh..Patch) 1 patch TRANSDERMA DAILY [facility]; Protocol Last Admin: 11/18/21 10:02 Dose: 1 patch Lidocaine/Diphenhydr/Alum/Mg/Simeth (Mag&Al/Sim/Diphenhyd/Lidocaine 10 Ml Oral.Susp) 10 ml PO Q4H PRN; Protocol PRN Reason: throat pain Last Admin: 11/18/21 06:08 Dose: 10 ml Nicotine (Nicotine 21 Mg Patch.Td24) 21 mg TRANSDERMA DAILY [facility] Last Admin: 11/17/21 16:51 Dose: 21 mg Ondansetron HCl (Ondansetron Hcl 4 Mg/2 Ml Vial) 4 mg IVPUSH Q8H PRN PRN Reason: Nausea and Vomiting Pantoprazole Sodium (Pantoprazole Sodium 40 Mg/10 Ml Vial) 40 mg IVPUSH BID@0630,1630 [facility] Last Admin: 11/18/21 06:02 Dose: 40 mg Pharmacy Consult (Consult Rx Perform Med Rec) 1 each MISCELLANE ONCE PRN PRN Reason: Consult order Sodium Chloride (0.9 % Sodium Chloride Flush 3 Ml Syringe) 3 ml IVFLUSH QSHIFT [facility] Last Admin: 11/18/21 08:26 Dose: Not Given Home Medications Medication Instructions Recorded Confirmed Last Taken Type acetaminophen 325 mg tablet 650 mg PO Q6H PRN Back Pain 11/16/21 11/16/21 11/16/21 History (Tylenol) amlodipine 5 mg tablet 1 tab PO DAILY 11/16/21 11/16/21 11/15/21 History Exam Exam Date and Time: November 18, 2021 104 Height,Weight and Vital Signs: Height 5 ft 7 in Weight 116 lb Last Vital Signs Temp 99.7 F 11/18/21 07:46 Pulse 89 11/18/21 07:46 Resp 17 11/18/21 07:46 BP 180/88 H 11/18/21 07:46 Pulse Ox 97 11/18/21 07:46 O2 Del Method 11/18/21 07:46 Pertinent Lab Results Pertinent Lab Results: Laboratory Tests 11/16/21 11/16/21 11/16/21 06:10 06:10 07:50 WBC 6.6 RBC 4.33 L Hgb 14.9 Hct 42.5 MCV 98.2 H MCH 34.4 H MCHC 35.1 RDW 11.4 Plt Count 355 MPV 7.7 L Immature Gran % (Auto) Neut % (Auto) Lymph % (Auto) [place] % (Auto) Eos % (Auto) Baso % (Auto) Lymph # (Auto) [place] # (Auto) Eos # (Auto) Baso # (Auto) Abs Immat Gran (auto) Absolute Neuts (auto) Absolute Nucleated RBC 0.000 Nucleated RBC % (auto) 0.0 PT INR APTT Sodium 131 L Potassium 3.2 L Chloride 87 L Carbon Dioxide 30 H Anion Gap 17 BUN 19 H Creatinine 0.77 Estim Creat Clear Calc 72.1 Estimated GFR > 60 Random Glucose 140 H Lactic Acid Calcium 9.5 Magnesium 1.9 Total Bilirubin 0.5 AST 17 ALT 14 Alkaline Phosphatase 100 Total Protein 7.1 Albumin 4.0 Lipase 66 COVID-19 ([facility]ITHA) Negative COVID-19 Clin Com See Note 11/16/21 11/16/21 11/17/21 07:50 12:26 05:57 WBC 6.5 RBC 4.05 L Hgb 14.1 Hct 39.8 L MCV 98.3 H MCH 34.8 H MCHC 35.4 RDW 11.5 Plt Count 276 MPV 7.8 L Immature Gran % (Auto) 0.6 H Neut % (Auto) 68.4 Lymph % (Auto) 20.0 [place] % (Auto) 10.2 Eos % (Auto) 0.3 Baso % (Auto) 0.5 Lymph # (Auto) 1.3 [place] # (Auto) 0.7 Eos # (Auto) 0.0 Baso # (Auto) 0.0 Abs Immat Gran (auto) 0.04 H Absolute Neuts (auto) 4.5 Absolute Nucleated RBC 0.000 Nucleated RBC % (auto) 0.0 PT 10.8 INR 0.9 APTT 28.2 Sodium Potassium Chloride Carbon Dioxide Anion Gap BUN Creatinine Estim Creat Clear Calc Estimated GFR Random Glucose Lactic Acid 1.7 Calcium Magnesium Total Bilirubin AST ALT Alkaline Phosphatase Total Protein Albumin Lipase COVID-19 ([facility]ALITHA) COVID-19 Attensity Com 11/17/21 05:57 WBC RBC Hgb Hct MCV MCH MCHC RDW Plt Count MPV Immature Gran % (Auto) Neut % (Auto) Lymph % (Auto) [place] % (Auto) Eos % (Auto) Baso % (Auto) Lymph # (Auto) [place] # (Auto) Eos # (Auto) Baso # (Auto) Abs Immat Gran (auto) Absolute Neuts (auto) Absolute Nucleated RBC Nucleated RBC % (auto) PT INR APTT Sodium 131 L Potassium 3.3 Chloride 90 L Carbon Dioxide 29 Anion Gap 15 BUN 7 L D Creatinine 0.55 Estim Creat Clear Calc 100.9 Estimated GFR > 60 Random Glucose 80 D Lactic Acid Calcium 8.4 D Magnesium Total Bilirubin AST ALT Alkaline Phosphatase Total Protein Albumin Lipase COVID-19 ([facility]ITHA) COVID-19 Clin Com Airway Mallampati Class: I TM Dist: >3cm Neck ROM: Full Loose/Missing/Broken Teeth: Yes (Many broken decayed teeth) Assessment and Plan Assessment Anesthesia Assessment: Anesthesia Plan Discussed Final Anesthetic Review Family History of Problems with Anesthesia: No History of Problems with Anesthesia: No NPO: Yes ASA Class: III Final Preanesthetic Review: No Changes in Pt Med Stat, Meds/Allgs Chart Reviewed, Consent Obtained/Reviewed and Anes Risks/Benef Reviewed Patient Risk: Intermediate Procedure Risk: Low Anesthetic Plan Anesthetic Plan: MAC: Disposition: Standard PACU
--- NOTE | 2021-11-18 11:07 | MHC.CM.PN ---
PT REPORTS HE LIVES WITH HIS AND IS INDEPENDENT WITH CARE PT DENIES USING DME OR HAVING HOME SERVICES PT DECLINES TO COMPLETE A HCP PT REPORTS HE IS COVID VACCINATED PT REPORTS HE DOES NOT HAVE A PCP SINCE HIS RETIRED -[facility]TA [facility]RAD HE DECLINES ASSISTANCE CONNECTING WITH A NEW PCP CURRENT DC PLAN IS HOME WITH NO SERVICES PT WILL DRIVE HIMSELF HOME
--- NOTE | 2021-11-18 11:12 | PC.NURSE ---
report to lee helm rn
[2021-11-18] MEDS: Pantoprazole Sodium 40 MG/10 ML VIAL 80 MG IVPUSH (12:08)
[2021-11-18] MEDS: Nicotine 21 MG PATCH.TD24 TRANSDERMA (12:08)
[2021-11-18] MEDS: Acetaminophen 325 MG TABLET 650 MG PO ×2 (12:17→18:22)
[2021-11-18] MEDS: Enoxaparin Sodium 40 MG/0.4 ML SYRINGE SUBCUT (14:19)
[2021-11-18] MEDS: ondansetron HCL 4 MG/2 ML VIAL IVPUSH (14:19)
[2021-11-18] MEDS: 0.9 % Sodium Chloride Flush 3 ML SYRINGE IVFLUSH (14:22)
[2021-11-18] MEDS: Omeprazole 40 MG CAPSULE.DR PO (15:57)
[2021-11-19] MEDS: 0.9 % Sodium Chloride Flush 3 ML SYRINGE IVFLUSH ×2 (00:18→08:20)
[2021-11-19] MEDS: Acetaminophen 325 MG TABLET 650 MG PO ×2 (00:19→06:26)
[2021-11-19 04:00] VITALS: BP 126/69; PULSE 84; RESP 17; TEMP 36.3; O2SAT 97
[2021-11-19] MEDS: Omeprazole 40 MG CAPSULE.DR PO (06:25)
--- NOTE | 2021-11-19 06:46 | HO.POSTANES ---
Post Anesthesia Evaluation Post Anesthesia Evaluation Vital Signs: Vital Signs Temp Pulse Resp BP Pulse Ox O2 Del Method 11/19/21 04:00 97.4 F 84 17 126/69 97 Room Air 11/18/21 23:45 97.5 F 83 17 161/77 H 94 Room Air 11/18/21 19:42 98.7 F 91 17 138/87 96 Room Air Anesthesia: Monitored Mental Status: Awake Pain Control: Satisfactory Nausea/Vomiting: None Hydration: Adequate Anesthesia-Related Issues: No Anes. Related Issues
[2021-11-19 07:35] VITALS: BP 161/94; PULSE 95; RESP 18; TEMP 37.2; O2SAT 94
[2021-11-19] MEDS: Lidocaine 4 % Patch ADH..PATCH 1 PATCH TRANSDERMA (08:17)
[2021-11-19] MEDS: amLODIPine Besylate 10 MG TABLET PO (08:20)
[2021-11-19] MEDS: Nicotine 21 MG PATCH.TD24 TRANSDERMA (08:20)
--- NOTE | 2021-11-19 08:51 | PM.DS ---
DS: Providers Provider Date of Service: 11/19/21 Date of admission: 11/16/21 13:37 Primary care physician: None Physician Consults: 11/16/21 11:50 Consult to Gastroenterology Stat Consulting Provider: Arline Boone Reason for consultation: esophagitis, inability to tolerate PO Has provider been notified: No Attending physician on discharge: Catrachita Levy Discharging clinician: Carito Barrera DS: Diagnosis Discharge Diagnosis (1) Esophagitis: Status: Acute DS: Summary Hospital Course Hospital Course: 66-year-old man presented to the ER with complaints of poor appetite, nausea, vomiting and throat pain.? He reports started on Thursday where he had several violent vomiting episodes.? He denies any recent travel, sick contacts or probably cut foods.? He is unsure if he ate something that was pad but since then he reports that he has not been able to eat anything and he feels like he has lost roughly 30 lb since then.? He reports being active without having any gastrointestinal issues prior to Thursday.? He is a heavy smoker smoking 2 packs cigarettes a day and drinks approximately 5 beers a day with last drink being approximately 4 days ago he denied any recent fever, chills, chest pain, shortness of breath.? in the ER, chest CT showed emphysema with respiratory bronchiolitis and mild wall thickening of the distal thoracic esophagus and proximal stomach.? Multiple external abnormalities noted including sodium of 131, potassium 3.2.? Mildly elevated blood pressure with highest reading of 169/98.? He has had no further episodes of nausea or vomiting.? He has been given IV potassium, IV fluids and PPI.? He will be admitted for further management and treatment of gastritis. Esophagitis.? Secondary to vomiting Magic mouthwash for mouth and throat pain, IV ppi initially s/p EGD showing duodenitis with probable peptic ulcer, gastritis, esophagitis and hiatal hernia Plan is for smoking cessation, high-dose PPI 40 mg b.i.d. for 3 months with repeat EGD at that time Biopsy results pending bland diet with high-protein History of hypertension increased? amlodipine to 10mg daily Follow blood pressure at home Back pain lidocaine patch Hyponatremia/hypokalemia.?Resolved Secondary to vomiting Smoker discussed the importance of smoking cessation Home with nicotine patches Time Spent with Patient Time attestation: Total time spent providing and/or coordinating discharge services: Discharge coordination time: Greater than 30 minutes Quality: Safe Use of Opioids Does Pt have an Active Cancer Diagnosis on the Problem List?: No Quality: Stroke Does the patient have a stroke diagnosis?: No Physical Exam Vital Signs: Vital Signs: Last Vital Signs Temp 98.9 F 11/19/21 07:35 Pulse 95 11/19/21 07:35 Resp 18 11/19/21 07:35 BP 161/94 H 11/19/21 07:35 Pulse Ox 94 11/19/21 07:35 O2 Del Method 11/19/21 07:35 BMI result Body Mass Index 18.1 Appearing in no acute distress head is normocephalic atraumatic eyes pupils are PERRLA sclera is anicteric mouth throat mucous membranes are intact and moist neck is supple no lymphadenopathy, no JVD noted lung sounds are clear to auscultation heart regular rate rhythm, clear S1, S2 positive bowel sounds, abdomen is soft, nontender neuro patient is alert x3, no focal deficits DS: Data Data Completed and Pending Pending studies at discharge: Pending at discharge 11/18/21 10:55 Surgical [PTH] Routine Labs on day of discharge: Preliminary micro results at discharge 11/16/21 07:50 Blood Culture - Preliminary Blood - Venous No growth after 48 hours. 11/16/21 07:50 Blood Culture - Preliminary Blood - Venous No growth after 48 hours. Discharge Plan Discharge Anticipated Discharge Date/Time: 11/19/21 08:43 Patient Disposition: Home, Self-Care Discharge Diagnosis: Esophagitis Referrals: Arline Boone MD [Physician] - 1 Week Discharge Medications: New lidocaine [Lidocaine Pain Relief] 4 % Adhesive Patch,Medicated 1 patch transdermal DAILY Qty: 10 0RF Protocol: Apply to: Apply to: back omeprazole 40 mg Capsule,Delayed Release(Dr/Ec) 40 mg PO BID@0630,1630 Qty: 60 0RF amlodipine 10 mg Tablet 10 mg PO DAILY Qty: 30 0RF Protocol: Hold for SBP< HOLD for SBP < : 90 nicotine 21 mg/24 hr Patch 24 Hour 21 mg transdermal DAILY Qty: 14 0RF Mag&Al/Sim/Diphenhyd/Lidocaine [Magic Mouthwash] 10 ml PO Q4H 10 Days Qty: 600 0RF Continued acetaminophen [Tylenol] 325 mg Tablet 650 mg PO Q6H PRN (Reason: Back Pain) Discontinued amlodipine 5 mg tablet 1 tab PO DAILY Discharge Orders: Discharge Order (Routine); Ordered 11/19/21 Ordered By: Carito Barrera Diet: Advance to usual diet Activity on Discharge: As tolerated Stand Alone Forms: Patient Portal Discharge page Care Plan Goals: Stop smoking cigarettes Health Concerns: Esophagitis Plan of Treatment: Continue medications as prescribed 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
--- NOTE | 2021-11-19 08:59 | MHC.CM.PN ---
HOME - SELF CARE. RN AWARE OF PLAN.
== END 2021-11-19 13:00 | disposition home or self-care (01) ==
LOC: HO.ED 11:51 → HO.S3 15:03 → HO.EDOVER 11-17 14:42 → HO.S3 11-17 14:42
PROVIDERS: Internal Medicine Gastroenterology; Admitting Provider Nurse Practitioner Acute Care; Emergency Provider Emergency Medicine; Visit Provider Nurse Practitioner Acute Care
PROC: 0DJ08ZZ Inspection of Upper Intestinal Tract, Via Natural or Artificial Opening Endoscopic (ICD-10-PCS; CPT 43235; principal; 2021-11-18 10:00)
DX: K20.90 Esophagitis, unspecified without bleeding (principal); K29.80 Duodenitis without bleeding; K29.70 Gastritis, unspecified, without bleeding; K44.9 Diaphragmatic hernia without obstruction or gangrene; R13.10 Dysphagia, unspecified; R62.7 Adult failure to thrive; Z68.1 Body mass index [BMI] 19.9 or less, adult; E87.1 Hypo-osmolality and hyponatremia; R11.2 Nausea with vomiting, unspecified; E86.0 Dehydration; E87.6 Hypokalemia; J43.9 Emphysema, unspecified; J84.115 Respiratory bronchiolitis interstitial lung disease; I10 Essential (primary) hypertension; R53.1 Weakness; Z20.822 Contact with and (suspected) exposure to COVID-19; F17.200 Nicotine dependence, unspecified, uncomplicated; F17.210 Nicotine dependence, cigarettes, uncomplicated; Z71.6 Tobacco abuse counseling
CPT/HCPCS: 43239; 36415; 70491; 71260; 74177; 80048; 80053; 83605; 83690; 83735; 85025; 85027; 85610; 85730; 87040; 87635; 88305; 88312; 88342; 96361; 96365; 96366; 96372; 96375; 96376; 99218; 99285; J1650; J2405; Q9967

== ENCOUNTER 2022-11-01 07:09 | Inpatient (IN) | payer OTHER, SELFPAY ==
[2022-11-01] VITALS (12 sets, daily range): BP systolic 130–231; BP diastolic 62–126; PULSE 90–118; RESP 17–36; TEMP 36.2–36.9; O2SAT 91–98; BMI 18.4; BMI 19.0
--- NOTE | ~2022-11-01 | XR_ITS ---
EXAMINATION: XR HIP, RIGHT CLINICAL INFORMATION: Fall COMPARISON: None available. TECHNIQUE: Two views of the right hip. FINDINGS: Short intramedullary femoral john and 2 screws stabilizing old healed right hip fracture. The hardware is intact. Joint space is maintained normal. There is no acute fractures seen at this time. The soft tissues are normal. XR/XR hip RT min 2V IMPRESSION: Hardware stabilizing old healed right hip fracture. There is no hardware loosening or recurrent fracture seen. The joint space is maintained normal
--- NOTE | ~2022-11-01 | CT_ITS ---
EXAMINATION: CT HIP WITHOUT CONTRAST, RIGHT CLINICAL INFORMATION: Follow-up fall, hip pain COMPARISON: Right hip 11/01/2022. TECHNIQUE: Multidetector volumetric imaging was obtained through the right hip without contrast material. Multiplanar reformatted images were submitted in coronal and sagittal planes. This CT examination was performed using dose optimization techniques as appropriate, variously including the following: *Automated exposure control *Adjustment of mA and/or kV according to patient size (this includes techniques or standardized protocols for targeted exams where dose is matched to indication/reason for exam; i.e. extremities or head) *Use of iterative reconstruction technique DLP: 138 mGy-cm FINDINGS: On coronal and sagittal reconstructions there is intramedullary john in proximal femur stabilized with [address]. There is no periprosthetic fracture seen. There is most suspicious for loosening either. Mild loss of right hip joint space is noted with periarticular spurring. The soft tissues are normal. There is a nondisplaced fracture involving the right inferior and superior pubic rami. Pubic symphysis is intact. There is a small lucency along the right anterior femoral head likely subchondral cyst. Visualized acetabulum and part of the right iliac bone appears unremarkable. CT/CT hip RT wo IV con IMPRESSION: Nondisplaced fractures involving superior and inferior pubic rami fractures. Old healed right hip fracture with hardware is intact. There is no recurrent fracture visualized on these images. There is mild degenerative changes
--- NOTE | ~2022-11-01 | XR_ITS ---
EXAMINATION: XR CLAVICLE, LEFT CLINICAL INFORMATION: Fall COMPARISON: None available. TECHNIQUE: Two views of the left clavicle. FINDINGS: Bones are osteopenic limiting evaluation. There is a comminuted fracture of the mid/lateral aspect of the clavicle. There is bony displacement, with apparent overriding of the fracture fragments. There is displaced osseous fragment in the region of the mid clavicle. Evaluation limited by positioning/technique. Acromioclavicular joint alignment is anatomic. Mild acromioclavicular arthritis. There is a lucency in the acromion, only visualized on one view. The humeral head articulates with the glenoid. There is limited evaluation of the acromion, glenoid/scapula by positioning/technique. Multiple calcifications/ossifications superior to the humeral head could reflect calcific tendinitis or bursitis. No acute proximal humeral fracture is identified. XR/XR clavicle LT IMPRESSION: Comminuted displaced fracture of the mid/lateral aspect of clavicle, with apparent overriding of fracture fragments. Evaluation is limited in the provided views, by positioning/technique. Additional/repeat clavicle x-rays as clinically warranted. Lucency in the acromium, only visualized on one view, could be related to overlapping densities, with an undisplaced fracture cannot be excluded. Limited evaluation of the scapula/glenoid. Shoulder radiographs for further evaluation as clinically warranted. Calcifications/ossifications superior to the greater tuberosity, suggestive of calcific tendinitis/bursitis. Osteopenia limits evaluation.
--- NOTE | ~2022-11-01 | XR_ITS ---
EXAMINATION: XR CHEST CLINICAL INFORMATION: Fall COMPARISON: X-ray 05/21/2012 TECHNIQUE: Frontal view of the chest was obtained. FINDINGS: The cardiomediastinal silhouette is within normal limits. The lungs are well expanded. Central vascular prominence, similar to previous. There is no focal consolidation, edema, or effusion. No pneumothorax. There is a comminuted left clavicular fracture, see clavicle x-ray report. No acute displaced rib fractures identified. Monitoring leads overlie the chest. XR/XR chest 1V IMPRESSION: No evidence of acute pulmonary process. Left clavicular fracture, see clavicle x-ray report.
--- NOTE | ~2022-11-01 | CT_ITS ---
EXAMINATION: CT HEAD WITHOUT CONTRAST CT CERVICAL SPINE WITHOUT CONTRAST CLINICAL INFORMATION: Fall. Head injury. Neck pain. COMPARISON: Neck CT from 11/16/2021. TECHNIQUE: Contiguous axial imaging was performed from the skull base to vertex without intravenous administration of contrast. Contiguous axial imaging was performed from the upper chest through the skull base without intravenous administration of contrast. Coronal and sagittal reformats were obtained at the acquisition workstation. This CT examination was performed using dose optimization techniques as appropriate, variously including the following: *Automated exposure control. *Adjustment of mA and/or kV according to patient size (this includes techniques or standardized protocols for targeted exams where dose is matched to indication/reason for exam; i.e. extremities or head). *Use of iterative reconstruction technique. DLP: 855 mGy-cm FINDINGS: Head: There is no evidence of acute intracranial hemorrhage or edematous territorial infarction. Kaur-white matter differentiation is preserved. Scattered and partially confluent hypoattenuation in the periventricular and deep white matter are consistent with moderate microangiopathy. Proportional prominence of the ventricles and sulcal spaces without evidence of obstructive hydrocephalus. No abnormal mass effect or midline shift. No extra-axial fluid collections. No acute soft tissue or osseous abnormalities. Age-related thinning of the bilateral parietal bones. The mastoid air cells and visualized paranasal sinuses are clear. Cervical Spine: The atlantooccipital and atlantoaxial articulations remain well aligned. Moderate degenerative arthropathy of the atlantodental articulation. Mild pannus formation posterior to the dens. Ankylosis of the C2-C3 and C4-C5 facets. Mild degenerative anterolisthesis of C3 on C4. Otherwise, normal anatomic alignment. No evidence of acute fracture or subluxation. The vertebral body heights are maintained. Advanced degenerative disc disease from C4-C7. Moderate degenerative disc disease at all additional cervical levels. There is no prevertebral soft tissue swelling. Moderately displaced fracture of the mid left clavicular shaft. Moderate surrounding hematoma in the left supraclavicular region. The thyroid gland and remaining cervical soft tissues are within normal limits. The lung apices demonstrate no abnormalities. CT/CT cervical spine wo IV con IMPRESSION: 1. No evidence of acute intracranial hemorrhage or edematous territorial infarction. Moderate underlying microangiopathy and generalized cerebral volume loss. 2. No evidence of acute fracture or traumatic subluxation of the cervical spine. Moderate multilevel degenerative spondyloarthropathy of the cervical spine. 3. Moderately displaced fracture of the mid left clavicular shaft.
--- NOTE | 2022-11-01 07:20 | ECG_ITS ---
Test Reason : DYSPNEA Blood Pressure : / mmHG Vent. Rate : 114 BPM Atrial Rate : 114 BPM P-R Int : 140 ms QRS Dur : 068 ms QT Int : 336 ms P-R-T Axes : 076 041 129 degrees QTc Int : 463 ms Sinus tachycardia Left ventricular hypertrophy with repolarization abnormality ( Sokolow-Mitchell ) Abnormal ECG No previous ECGs available Referred By: Emerald Edmonds Electronically Signed By:CHEYENNE JEREZ
--- NOTE | 2022-11-01 07:23 | ED_ITS ---
HPI - Fall General Chief Complaint: Fall Stated Complaint: Fall hip pain Time Seen by Provider: 11/01/22 07:12 Source: patient and old records reviewed Mode of arrival: EMS Limitations: other (very poor historian) History of Present Illness HPI Narrative: 67 yo male with hx of COPD, HTN - cannot remember the last time he took his amlodipine, daily ETOH drinker, COPD not on home O2 only takes primatene mist still a smoker who comes in with c/o falls x 2 this week he thinks he hit his head he blames this on new R leg weakness and numbness starting two days ago. He denies LOC. He tried to get up this AM to use the bathroom and his leg was not working right and he fell down injuring L clavicle and abrasion on L arm. He has a contusion to L forehead. He states his R hip is not too bad but it is sore to walk on after first fall. He states his last drink was 3 days ago he usually drinks 4 beers a day. He also states he is coughing but thinks it is just his smokers cough. MD complaint: fall Onset (ago): day(s) (2) Fall from: standing Fall witnessed: no Place fall occurred: home Loss of consciousness: none Prolonged down time: no Symptoms prior to fall: none and other Context: other (blames new onset RLE weakness and numbness that started 2 days ago. ) Location of injury: head, pelvis and other (left clavicle) Location of injury - extremities: left: arm Severity: moderate Quality: aching and throbbing Associated symptoms (after fall): other (L clavicle pain) Related Data Home Medications Medication Instructions Recorded Confirmed acetaminophen 325 mg tablet 650 mg PO Q6H PRN Back Pain 11/16/21 11/16/21 (Tylenol) Previous Rx's Medication Instructions Recorded Mag&Al/Sim/Diphenhyd/Lidocaine 10 ml PO Q4H Esophagitis 10 days 11/19/21 [Magic Mouthwash] #600 mL amlodipine 10 mg tablet 10 mg PO DAILY #30 tabs 11/19/21 lidocaine 4 % topical patch 1 patch transdermal DAILY back 11/19/21 (Lidocaine Pain Relief) pain #10 ea nicotine 21 mg/24 hr daily 21 mg transdermal DAILY #14 ea 11/19/21 transdermal patch omeprazole 40 mg capsule,delayed 40 mg PO BID@0630,1630 #60 caps 11/19/21 release Allergies Allergy/AdvReac Type Severity Reaction Status Date / Time No Known Allergies Allergy Unverified 12/01/19 16:48 Review of Systems Review of Systems: Constitutional : No Fever, No Chills, pos fatigue, pos malaise ENT/Mouth : No Ear Pain, No Hoarseness, No sore throat Eyes: No Eye Pain, No Swelling, No Redness, No Foreign Body Cardiovascular : No Chest Pain, pos SOB Respiratory : pos Cough, pos Dyspnea, pos sputum Gastrointestinal : No Nausea, No Vomiting, No Diarrhea, No abdominal Pain Genitourinary : No Dysuria, No Hematuria Musculoskeletal : positive joint pain, No Myalgias, No Joint Swelling Skin : No Skin lacerations, No rash, pos abrasions Neuro : posWeakness, pos Numbness, No Loss of Consciousness, No Dizziness, No Headache Psych : No Anxiety/Panic, No Depression All other systems reviewed and are negative FOR[facility], [facility] Past Medical History Attestation statement: The following information was validated with the patient. Medical History Acute hypokalemia Adult failure to thrive No pertinent past medical history Family History Family History Mother Lung cancer Sister Lung cancer Social History Social History (Updated 11/01/22 @ 07:43 by Emerald Edmonds DO) Household Members: Spouse Housing: Apartment Do you presently have visiting nurse or other home services: No Alcohol intake: current Alcohol intake frequency: 3 or more drinks per day Alcohol type: beer Patient Tobacco Use Status: Current everyday Tobacco user Tobacco use type: Cigarette Cigarettes Per Day: 1 Smoked in Last 30 Days: Yes Use of substances other than those prescribed or required for medical reasons: No Advance Directives: No Advance Directives Information Provided: No service: No Current occupational status: employed Physical Exam Vital Signs: Vital Signs: Last Vital Signs Temp 98.2 F 11/01/22 07:19 Pulse 105 H 11/01/22 09:40 Resp 11/01/22 09:40 BP 159/97 H 11/01/22 09:40 Pulse Ox 91 L 11/01/22 09:40 O2 Del Method Nasal Cannula 11/01/22 09:40 O2 Flow Rate 3 08/19/23 09:40 BMI result Body Mass Index 18.4 Appearance: Alert. Oriented X3. No acute distress. Eyes: pinpoint pupils. ENT: Pharynx normal. contusion L eyebrown area and L forehead Neck: Normal inspection. mild posterior pain but no step offs in midline CVS: tachycardic heart rate and rhythm. Pulses normal. Chest: ttp along L clavicle with deformity noted mild tenting noted and contusion noted overlying clavicle - he has a bounding L distal radial pulse Respiratory: Mild respiratory distress - tachypnea. Breath sounds wheezes heard and diminished throughout Abdomen: Soft and nontender. Skin: Skin warm and dry. Normal skin color. Normal skin turgor. Extremities: No lower extremity edema. mild ttp along R upper hip Neuro: Oriented X 3. R arm and L arm 5/5 but R leg is 4+/5 and L leg is 5/5 there is noticeable difference he also reports decreased sensation on upper lateral thigh but can feel my hand. CN intact. Course Course Course Narrative: 30 cc/kg bolus ordered. empiric ceftriaxone ordered suspect lactic could be due to ETOH as well. Reevaluation(s) Reevaluation #1: tachycardic, tremulous HTNive - ETOH 56 in someone who stated they did not drink for 3 days at this time concern for ETOH withdrawal I have ordered phenobarb protocol for withdrawal. 5mg of PO amlodipine Reevaluation #2: pin point pupils + for fentanyl has received no narcotics here to cause that test result Reevaluation #3: much improved, resting comfortably he is not toxic at this time tremors and BP have improved pending imaging will admit Additional Reevaluation(s): VS improved withdrawal symptoms improved Medications Administered Generic Name Dose Route Start Last Admin Trade Name Freq PRN Reason Stop Dose Admin Azithromycin 500 mg/ Sodium 250 mls @ 125 mls/hr 11/01/22 09:29 11/01/22 09:37 Chloride IV 11/01/22 11:28 125 mls/hr ONCE ONE Administration Discontinued Medications Generic Name Dose Route Start Last Admin Trade Name Freq PRN Reason Stop Dose Admin Albuterol/Ipratropium 3 ml 11/01/22 07:21 11/01/22 08:01 Albuterol/Iprat 2.5/0.5mg 3 Ml Ampul.Neb INHALE 11/01/22 07:22 3 ml ONCE ONE Administration Amlodipine Besylate 5 mg 11/01/22 08:45 11/01/22 09:05 Amlodipine Besylate 5 Mg Tablet PO 11/01/22 08:46 5 mg ONCE ONE Administration Protocol Thiamine HCl 200 mg/ Sodium 102 mls @ 204 mls/hr 11/01/22 07:21 11/01/22 09:18 Chloride IV 11/01/22 07:50 Infused ONCE ONE Infusion Ceftriaxone Sodium 1 gm/ 50 mls @ 100 mls/hr 11/01/22 07:49 11/01/22 09:19 Sodium Chloride IV 11/01/22 08:18 Infused ONCE ONE Infusion Sodium Chloride 1,644 mls @ 1,644 mls/hr 11/01/22 07:54 11/01/22 09:19 Ns 30 ml/kg infuse over 1 hr (1644 ml) 11/01/22 08:53 Infused IV Infusion .Q1H STA Methylprednisolone Sodium Succinate 60 mg 11/01/22 07:19 11/01/22 07:58 Methylprednisolone Sod Succ 125 Mg/2 Ml Vial IVPUSH 11/01/22 07:20 60 mg ONCE ONE Administration Oxycodone HCl 10 mg 11/01/22 08:02 11/01/22 08:16 Oxycodone Hcl Immed Release 5 Mg Tablet PO 11/01/22 08:03 10 mg ONCE ONE Administration Phenobarbital Sodium 219 mg 11/01/22 08:15 11/01/22 08:28 Phenobarbital Sodium 130 Mg/Ml Im Once IM 11/01/22 08:16 219 mg ONCE ONE Administration Procedures Orthopedic Splinting/Casting Injury #1: Side: left Upper Extremity Injury Location: clavicle Upper Extremity Immobilizer: sling/shoulder immobilizer Additional Comments: NV intact after pain improved Medical Decision Making Medical Decision Making MDM Narrative: 67 yo male with hx of COPD, HTN, daily ETOH drinker, COPD not on home O2 only takes primatene mist still a smoker here with falls x 2 worse that started after R leg weakness x 48 hours. At this time he does have RLE weakness on exam. He has likely clavicle fracture as well. He does appear to be tight and wheezing with a cough - steroids and neb ordered. I have ordered labs, EKG, CT head/cspine given falls and he is not sure if he hit his head but has obvious contusions to head. He has mild neck pain as well. He has possible R hip fx and L clav fx. He could be in ETOH withdrawal as well I have ordered thiamine and will watch closely. He has pinpoint pupils but denies drug use and narcotic use. Suspect he will need admission and will treat as COPD exacerbation as well given RR and sputum production with RR in 30s on arrival. I am also concerned about stroke given 48 hours of R leg weakness. Differential Diagnosis Differential Diagnoses: The differential diagnosis associated with the presentation includes COPD, stroke, falls, fracture, lyte abnormality, dehydration Admission/Observation Consideration of admission/observation: Escalation of care including admission/ observation considered lyte abnormalities, ETOH withdrawal, COPD exacerbation Consult Healthcare Provider Management of the patient was discussed with: Hospitalist Lab Data MDM Lab Attestation statement: I reviewed the patient's lab results. 11/01/22 07:27 11/01/22 07:27 Labs: Lab Results 11/01/22 11/01/22 11/01/22 Range/Units 07:27 07:27 07:27 WBC 11.2 H (4.8-10.8) X10*3/uL RBC 3.65 L (4.60-5.80) X10*6/uL Hgb 13.1 L (14.0-18.0) g/dl Hct 36.3 L (42.0-52.0) % MCV 99.5 H (80.0-98.0) fL MCH 35.9 H (27.0-33.0) pg MCHC 36.1 H (31.0-36.0) g/dl RDW 11.9 (11.0-16.0) % Plt Count 174 D (160-400) X10*3/uL MPV 8.0 L (9.4-12.4) fL Immature Gran % (Auto) 0.5 H (0.0-0.4) % Neut % (Auto) 86.9 H (45-73) % Lymph % (Auto) 5.1 L (20-40) % [place] % (Auto) 6.5 (2-11) % Eos % (Auto) 0.8 (0-4) % Baso % (Auto) 0.2 (0-2) % Lymph # (Auto) 0.6 L (1.2-4.9) X10*3/uL [place] # (Auto) 0.7 (0.1-1.2) X10*3/uL Eos # (Auto) 0.1 (0.0-0.4) X10*3/uL Baso # (Auto) 0.0 (0.0-0.2) X10*3/uL Abs Immat Gran (auto) 0.06 H (0.00-0.03) X10*3/uL Absolute Neuts (auto) 9.8 H (2.0-8.3) x10*3/uL Absolute Nucleated RBC 0.000 (0.0-0.012) X10*3/uL Nucleated RBC % (auto) 0.0 (0.0-0.2) /100WBC PT (11.1-13.3) SEC INR (0.9-1.1) Sodium 127 L (135-145) mmol/L Potassium 5.0 D (3.3-5.1) mmol/L Chloride 89 L (96-108) mmol/L Carbon Dioxide 18 L (22-29) mmol/L Anion Gap 25 H (12-20) BUN 11 (9-16) mg/dL Creatinine 0.62 (0.5-1.4) mg/dL Estim Creat Clear Calc 92.0 Estimated GFR > 60 Random Glucose 86 (60-115) mg/dL Lactic Acid 4.9 H* (0.5-2.0) mmol/L Lactic Acid F/U @ 2Hr (0.5-2.0) mmol/L Calcium 9.4 D (8.4-10.2) mg/dL Magnesium 1.8 (1.6-2.6) mg/dL Total Bilirubin 1.2 H (0.0-1.0) mg/dL Direct Bilirubin 0.4 (0.0-0.5) mg/dL AST 95 H (5-37) U/L ALT 57 H (0-40) U/L Alkaline Phosphatase 89 (39-117) U/L Total Creatine Kinase 1892 H (38-174) U/L Troponin I High Sens (<3.5-35.0) ng/L Total Protein 7.3 (6.5-8.0) g/dL Albumin 4.3 (3.5-5.0) g/dL Lipase 33 (8-78) U/L Urine Color Urine Appearance Urine pH (5.0-9.0) Ur Specific [place] (1.005-1.025) Urine Protein (Neg-Trace) mg/dL Urine Glucose (UA) (Negative) mg/dL Urine Ketones (Negative) mg/dL Urine Blood (Negative) Urine Nitrite (Negative) Ur Leukocyte Esterase (Negative) Urine RBC (0-2) /HPF Urine WBC (0-5) /HPF Ur Squamous Epith Cells (0-2) /HPF Urine Bacteria (None Seen) Hyaline Casts (0-2) /LPF Urine Opiates Screen (Not Detect) Urine Fentanyl Screen (Not Detect) Ur Barbiturates Screen (Not Detect) Ur Phencyclidine Scrn (Not Detect) Ur Amphetamines Screen (Not Detect) U Benzodiazepines Scrn (Not Detect) Urine Cocaine Screen (Not Detect) U Marijuana (THC) Screen (Not Detect) Ethyl Alcohol 56 mg/dL COVID-19 (LALITHA) (Negative) COVID-19 Clin Com 11/01/22 11/01/22 11/01/22 Range/Units 07:27 08:11 08:11 WBC (4.8-10.8) X10*3/uL RBC (4.60-5.80) X10*6/uL Hgb (14.0-18.0) g/dl Hct (42.0-52.0) % MCV (80.0-98.0) fL MCH (27.0-33.0) pg MCHC (31.0-36.0) g/dl RDW (11.0-16.0) % Plt Count (160-400) X10*3/uL MPV (9.4-12.4) fL Immature Gran % (Auto) (0.0-0.4) % Neut % (Auto) (45-73) % Lymph % (Auto) (20-40) % Atlantic % (Auto) (2-11) % Eos % (Auto) (0-4) % Baso % (Auto) (0-2) % Lymph # (Auto) (1.2-4.9) X10*3/uL [place] # (Auto) (0.1-1.2) X10*3/uL Eos # (Auto) (0.0-0.4) X10*3/uL Baso # (Auto) (0.0-0.2) X10*3/uL Abs Immat Gran (auto) (0.00-0.03) X10*3/uL Absolute Neuts (auto) (2.0-8.3) x10*3/uL Absolute Nucleated RBC (0.0-0.012) X10*3/uL Nucleated RBC % (auto) (0.0-0.2) /100WBC PT 10.8 L (11.1-13.3) SEC INR 0.9 (0.9-1.1) Sodium (135-145) mmol/L Potassium (3.3-5.1) mmol/L Chloride (96-108) mmol/L Carbon Dioxide (22-29) mmol/L Anion Gap (12-20) BUN (9-16) mg/dL Creatinine (0.5-1.4) mg/dL Estim Creat Clear Calc Estimated GFR Random Glucose (60-115) mg/dL Lactic Acid (0.5-2.0) mmol/L Lactic Acid F/U @ 2Hr (0.5-2.0) mmol/L Calcium (8.4-10.2) mg/dL Magnesium (1.6-2.6) mg/dL Total Bilirubin (0.0-1.0) mg/dL Direct Bilirubin (0.0-0.5) mg/dL AST (5-37) U/L ALT (0-40) U/L Alkaline Phosphatase (39-117) U/L Total Creatine Kinase (38-174) U/L Troponin I High Sens 12.8 (<3.5-35.0) ng/L Total Protein (6.5-8.0) g/dL Albumin (3.5-5.0) g/dL Lipase (8-78) U/L Urine Color Urine Appearance Urine pH (5.0-9.0) Ur Specific [place] (1.005-1.025) Urine Protein (Neg-Trace) mg/dL Urine Glucose (UA) (Negative) mg/dL Urine Ketones (Negative) mg/dL Urine Blood (Negative) Urine Nitrite (Negative) Ur Leukocyte Esterase (Negative) Urine RBC (0-2) /HPF Urine WBC (0-5) /HPF Ur Squamous Epith Cells (0-2) /HPF Urine Bacteria (None Seen) Hyaline Casts (0-2) /LPF Urine Opiates Screen (Not Detect) Urine Fentanyl Screen (Not Detect) Ur Barbiturates Screen (Not Detect) Ur Phencyclidine Scrn (Not Detect) Ur Amphetamines Screen (Not Detect) U Benzodiazepines Scrn (Not Detect) Urine Cocaine Screen (Not Detect) U Marijuana (THC) Screen (Not Detect) Ethyl Alcohol mg/dL COVID-19 (LALITHA) Negative (Negative) COVID-19 Clin Com See Note 11/01/22 11/01/22 11/01/22 Range/Units 08:38 08:38 09:39 WBC (4.8-10.8) X10*3/uL RBC (4.60-5.80) X10*6/uL Hgb (14.0-18.0) g/dl Hct (42.0-52.0) % MCV (80.0-98.0) fL MCH (27.0-33.0) pg MCHC (31.0-36.0) g/dl RDW (11.0-16.0) % Plt Count (160-400) X10*3/uL MPV (9.4-12.4) fL Immature Gran % (Auto) (0.0-0.4) % Neut % (Auto) (45-73) % Lymph % (Auto) (20-40) % Atlantic % (Auto) (2-11) % Eos % (Auto) (0-4) % Baso % (Auto) (0-2) % Lymph # (Auto) (1.2-4.9) X10*3/uL [place] # (Auto) (0.1-1.2) X10*3/uL Eos # (Auto) (0.0-0.4) X10*3/uL Baso # (Auto) (0.0-0.2) X10*3/uL Abs Immat Gran (auto) (0.00-0.03) X10*3/uL Absolute Neuts (auto) (2.0-8.3) x10*3/uL Absolute Nucleated RBC (0.0-0.012) X10*3/uL Nucleated RBC % (auto) (0.0-0.2) /100WBC PT (11.1-13.3) SEC INR (0.9-1.1) Sodium (135-145) mmol/L Potassium (3.3-5.1) mmol/L Chloride (96-108) mmol/L Carbon Dioxide (22-29) mmol/L Anion Gap (12-20) BUN (9-16) mg/dL Creatinine (0.5-1.4) mg/dL Estim Creat Clear Calc Estimated GFR Random Glucose (60-115) mg/dL Lactic Acid (0.5-2.0) mmol/L Lactic Acid F/U @ 2Hr 2.9 H* (0.5-2.0) mmol/L Calcium (8.4-10.2) mg/dL Magnesium (1.6-2.6) mg/dL Total Bilirubin (0.0-1.0) mg/dL Direct Bilirubin (0.0-0.5) mg/dL AST (5-37) U/L ALT (0-40) U/L Alkaline Phosphatase (39-117) U/L Total Creatine Kinase (38-174) U/L Troponin I High Sens (<3.5-35.0) ng/L Total Protein (6.5-8.0) g/dL Albumin (3.5-5.0) g/dL Lipase (8-78) U/L Urine Color Yellow Urine Appearance Clear Urine pH 5.5 (5.0-9.0) Ur Specific [place] 1.020 (1.005-1.025) Urine Protein 30 (1+) H (Neg-Trace) mg/dL Urine Glucose (UA) Negative (Negative) mg/dL Urine Ketones 15 (Negative) mg/dL Urine Blood Negative (Negative) Urine Nitrite Negative (Negative) Ur Leukocyte Esterase Negative (Negative) Urine RBC 0-2 (0-2) /HPF Urine WBC 0-5 (0-5) /HPF Ur Squamous Epith Cells 0-2 (0-2) /HPF Urine Bacteria None Seen (None Seen) Hyaline Casts >20 (0-2) /LPF Urine Opiates Screen Not Detected (Not Detect) Urine Fentanyl Screen POSITIVE H (Not Detect) Ur Barbiturates Screen Not Detected (Not Detect) Ur Phencyclidine Scrn Not Detected (Not Detect) Ur Amphetamines Screen Not Detected (Not Detect) U Benzodiazepines Scrn Not Detected (Not Detect) Urine Cocaine Screen Not Detected (Not Detect) U Marijuana (THC) Screen Not Detected (Not Detect) Ethyl Alcohol mg/dL COVID-19 (LALITHA) (Negative) COVID-19 Clin Com Independent Interpretation I performed an independent interpretation of an: EKG, Plain X-Ray and CT Scan Interpretation: Rate: 114 Rhythm: sinus tachycardia Smock: normal Normal P waves. Normal DAXA. Normal QRS complex. ST T wave : LVH has inverted t waves in I / aVL, V5-V6 likely due to LVH qTC: normal prior studies: no priors The study has been interpreted contemporaneously by me. . Radiology Impression Discussion of test interpretation with radiology: I have reviewed the radiologist's reading. Independent Historian Clinical information obtained from an independent historian. History obtained from or confirmed by: EMS External Record Review External record reviewed: Inpatient record Critical Care Time Critical Care Time Critical Care Time: Yes Total Critical Care Time: 60 Attestation: alcohol withdrawal treatment, fluid resuscitation, COPD exacerbation I attest to this time spent taking care of the patient Discharge Plan Discharge Clinical Impression: Right leg weakness, COPD exacerbation, Acute hyponatremia, Acidosis, lactic Clavicle fracture Qualifiers: Encounter type: initial encounter Clavicle location: shaft Fracture type: closed Fracture alignment: displaced Laterality: left Qualified Code(s): S42.022A - Displaced fracture of shaft of left clavicle, initial encounter for closed fracture Alcohol withdrawal Qualifiers: Complication of substance-induced condition: with unspecified complication Qualified Code(s): F10.939 - Alcohol use, unspecified with withdrawal, unspecified Rhabdomyolysis Qualifiers: Rhabdomyolysis type: traumatic Encounter type: initial encounter Qualified Code(s): T79.6XXA - Traumatic ischemia of muscle, initial encounter Patient Disposition: Admitted As Inpatient
[2022-11-01 07:32] LABS: MANUAL DIFF FLAG NO
[2022-11-01 07:34] LABS: Basophils Percent Auto 0.2 % (0-2); Eosinophils Absolute Auto 0.1 X10*3/uL (0.0-0.4); Eosinophils Percent Auto 0.8 % (0-4); Hematocrit 36.3 % (42.0-52.0); Hemoglobin 13.1 g/dl (14.0-18.0); Imm Gran Abs Auto 0.06 X10*3/uL (0.00-0.03); Imm Gran Pct Auto 0.5 % (0.0-0.4); Lymphocytes Absolute Auto 0.6 X10*3/uL (1.2-4.9); Lymphocytes Percent Auto 5.1 % (20-40); Mean Corpuscular HGB Conc 36.1 g/dl (31.0-36.0); Mean Corpuscular Hemoglobin 35.9 pg (27.0-33.0); Mean Corpuscular Volume 99.5 fL (80.0-98.0); Monocytes Absolute Auto 0.7 X10*3/uL (0.1-1.2); Monocytes Percent Auto 6.5 % (2-11); Neutrophils Absolute Auto 9.8 x10*3/uL (2.0-8.3); Neutrophils Percent Auto 86.9 % (45-73); Platelet Count 174 X10*3/uL (160-400); Red Blood Count 3.65 X10*6/uL (4.60-5.80); Red Cell Distribution Width 11.9 % (11.0-16.0); White Blood Count 11.2 X10*3/uL (4.8-10.8)
[2022-11-01 07:53] LABS: Lactic Acid 4.9 mmol/L (0.5-2.0)
[2022-11-01 07:57] LABS: Alanine Aminotransferase 57 U/L (0-40); Albumin Level 4.3 g/dL (3.5-5.0); Alkaline Phosphatase 89 U/L (39-117); Anion Gap 25 (12-20); Aspartate Amino Transferase 95 U/L (5-37); Bilirubin Direct 0.4 mg/dL (0.0-0.5); Bilirubin Total 1.2 mg/dL (0.0-1.0); Blood Urea Nitrogen 11 mg/dL (9-16); Calcium 9.4 mg/dL (8.4-10.2); Carbon Dioxide 18 mmol/L (22-29); Chloride 89 mmol/L (96-108); Estimated Glomerular Filt Rate > 60; Ethanol 56 mg/dL; Glucose Random 86 mg/dL (60-115); Lipase 33 U/L (8-78); Magnesium 1.8 mg/dL (1.6-2.6); Sodium 127 mmol/L (135-145); Total Protein 7.3 g/dL (6.5-8.0)
[2022-11-01] MEDS: Thiamine HCL 200 MG in 0.9 % Sodium Chloride 100 ML 204 MG IV (07:58)
[2022-11-01] MEDS: methylPREDNISolone Sod Succ 125 MG/2 ML VIAL 60 MG IVPUSH (07:58)
[2022-11-01 08:01] LABS: Troponin-I High Sensitivity 12.8 ng/L (<3.5-35.0)
[2022-11-01] MEDS: Albuterol/Iprat 2.5/0.5MG 3 ML AMPUL.NEB INHALE (08:01)
[2022-11-01] MEDS: oxyCODONE HCl Immed Release 5 MG TABLET 10 MG PO (08:16)
[2022-11-01] MEDS: cefTRIAXone sodium 1 GM in 0.9 % Sodium Chloride 50 ML IV (08:24)
[2022-11-01] MEDS: PHENobarbitaL sodium 130 MG/ML IM ONCE 219 MG IM (08:28)
[2022-11-01 08:34] LABS: INTERNATIONAL NORM RATIO 0.9 (0.9-1.1); Prothrombin Time 10.8 SEC (11.1-13.3)
[2022-11-01 08:38] LABS: COVID-19 Test Negative (Negative); IDNOW Serial# BCCEAD1C
--- NOTE | 2022-11-01 08:39 | PC.NURSE ---
patient placed on 2l nasal cannula for comfort
[2022-11-01 08:47] LABS: Appearance Urine Clear; Color Urine Yellow; Glucose Urine UA Negative (Negative); Leukocyte Esterase Urine Negative (Negative); Nitrite Urine Negative (Negative); PH 5.5 (5.0-9.0); UMIC TRIGGER UACC YES; Urine Blood Negative (Negative); Urine Ketones 15 mg/dL (Negative); Urine Protein 30 (1+) mg/dL (Neg-Trace)
[2022-11-01 08:52] LABS: Amphetamine Screen Urine Not Detected (Not Detect); Barbiturates, Urine Not Detected (Not Detect); Benzodiazepines Screen Urine Not Detected (Not Detect); Cannabinoid Screen Urine Not Detected (Not Detect); Cocaine Screen Urine Not Detected (Not Detect); Opiate Screen Urine Not Detected (Not Detect); Phencyclidine Screen Urine Not Detected (Not Detect)
[2022-11-01 08:56] LABS: Bacteria Urine None Seen (None Seen); Hyaline Casts Urine >20 /LPF (0-2); RBC Urine 0-2 /HPF (0-2); Squamous Epithelial Cell Urine 0-2 /HPF (0-2); WBC Urine 0-5 /HPF (0-5)
[2022-11-01] MEDS: amLODIPine Besylate 5 MG TABLET PO (09:05)
[2022-11-01 09:31] LABS: Reflex Lactate? Lactic Acid Added
[2022-11-01] MEDS: Azithromycin 500 MG in 0.9 % Sodium Chloride 250 ML 125 MG IV (09:37)
[2022-11-01 10:13] LABS: ~Lactic Acid-LAB USE ONLY 2.9 mmol/L (0.5-2.0)
[2022-11-01] MEDS: 0.9 % Sodium Chloride 1,000 ML 100 ML IVCONT ×2 (10:18→19:26)
--- NOTE | 2022-11-01 10:47 | PM.IMHP ---
History of Present Illness Date of Service: 11/01/22 Chief Complaint: Falls and left shoulder injury 67 year old male with no known chronic medical broblems, but drinks regulary at least 5 beers a day, and has neuropathy in feet. He presented to the ED due to frequent falls at home, the one from this morning rsulted in left shoulder injury and clavicular fracture on xray, labs show Hyponatremia, acute lactic acidosis, elevated LFTs, positive fentanyl, O2sat is low at 91 and is being treated for COPD, He has been initiated on Phenobarbital for impending alcohol withdrawal Review of Systems Review of Systems: Gen: no fever Resp: no sob, no cough CV: no chest, no GARNER, no leg edema GI: No n/v, no abd pain Neuro: No confusion left shoulder pain Yes all other systems are reviewed and are negative [facility] Medical History (Updated 11/01/22 @ 11:26 by Chirag Ortiz MD) Acute hypokalemia Adult failure to thrive Hip fracture No pertinent past medical history Family History Mother Lung cancer Sister Lung cancer Social History Household Members: Spouse Housing: Apartment Do you presently have visiting nurse or other home services: No Alcohol intake: current Alcohol intake frequency: 3 or more drinks per day Alcohol type: beer Patient Tobacco Use Status: Current everyday Tobacco user Tobacco use type: Cigarette Cigarettes Per Day: 1 Smoked in Last 30 Days: Yes Use of substances other than those prescribed or required for medical reasons: No Advance Directives: No Advance Directives Information Provided: No service: No Current occupational status: employed Meds Allergies Allergy/AdvReac Type Severity Reaction Status Date / Time No Known Allergies Allergy Unverified 12/01/19 16:48 Active Medications: Current Medications Azithromycin 500 mg/ Sodium (Chloride) 250 mls @ 125 mls/hr IV ONCE ONE Stop: 11/01/22 11:28 Last Admin: 11/01/22 09:37 Dose: 125 mls/hr Sodium Chloride (Ns) 1,000 mls @ 100 mls/hr IVCONT .Q10H TRAN Last Admin: 11/01/22 10:18 Dose: 100 mls/hr Pharmacy Consult (Consult Rx Etoh Phenob Im/Po) 1 each MISCELLANE ONCE PRN; Protocol PRN Reason: Consult order Phenobarbital (Phenobarbital 15 Mg Tablet) 45 mg PO BID [facility] Stop: 11/03/22 21:01 Phenobarbital (Phenobarbital 30 Mg Tablet) 30 mg PO BID [facility] Stop: 11/05/22 21:01 Phenobarbital (Phenobarbital 30 Mg Tablet) 30 mg PO DAILY [facility] Stop: 11/07/22 09:01 Phenobarbital Sodium (Phenobarbital Sodium 130 Mg/Ml Vial Im Q3hx2) 164 mg IM Q3H TRAN Stop: 11/01/22 14:01 Home Medications Medication Instructions Recorded Confirmed Last Taken Type acetaminophen 325 mg tablet 1,300 - 1,950 mg PO DAILY PRN Pain 11/16/21 11/01/22 11/16/21 History (Tylenol) polyethylene glycol 3350 17 17 g PO DAILY PRN Constipation 11/01/22 11/01/22 Unknown History gram/dose oral powder (Miralax) Physical Exam Vital Signs and Narrative: Vital Signs: Last Vital Signs Temp 98.2 F 11/01/22 07:19 Pulse 105 H 11/01/22 09:40 Resp 19 11/01/22 09:40 BP 159/97 H 11/01/22 09:40 Pulse Ox 91 L 11/01/22 09:40 O2 Del Method Nasal Cannula 11/01/22 09:40 O2 Flow Rate 3 11/01/22 09:40 BMI result Body Mass Index 18.4 Const: Other: Constitutional: Alert, in no distress, thin built Mental Status: Oriented to person, place and time. Eyes: Pupils are equal, round and reactive to light. Ear, Nose and Throat: Oropharynx clear, mucous membranes moist. Ears and nose without eformities. Trachea midline. Respiratory: Clear to auscultation. No wheezing, rales or rhonchi. Cardiovascular: S1 S2 regular. No murmurs, rubs or gallops. Gastrointestinal: Abdomen soft, non-tender, non-distended. Normal bowel sounds.? Neurologic: Cranial nerves II-XII grossly intact. No focal neurological deficits. Moves all extremities spontaneously.? Skin: No rashes or lesions.? Musculoskeletal: No cyanosis or clubbing. Psychiatric: Normal mood and affect? Results Labs 11/01/22 07:27 11/01/22 07:27 Labs: Laboratory Results - last 24 hr 11/01/22 11/01/22 11/01/22 07:27 07:27 07:27 MCV 99.5 H MCH 35.9 H MCHC 36.1 H RDW 11.9 Plt Count 174 D MPV 8.0 L Immature Gran % (Auto) 0.5 H Neut % (Auto) 86.9 H Lymph % (Auto) 5.1 L Mobile % (Auto) 6.5 Eos % (Auto) 0.8 Baso % (Auto) 0.2 Lymph # (Auto) 0.6 L Mobile # (Auto) 0.7 Eos # (Auto) 0.1 Baso # (Auto) 0.0 Abs Immat Gran (auto) 0.06 H Absolute Neuts (auto) 9.8 H Absolute Nucleated RBC 0.000 Nucleated RBC % (auto) 0.0 PT INR Anion Gap 25 H Estim Creat Clear Calc 92.0 Estimated GFR > 60 Random Glucose 86 Lactic Acid 4.9 H* Lactic Acid F/U @ 2Hr Calcium 9.4 D Magnesium 1.8 Total Bilirubin 1.2 H Direct Bilirubin 0.4 AST 95 H ALT 57 H Alkaline Phosphatase 89 Total Creatine Kinase 1892 H Total Protein 7.3 Albumin 4.3 Lipase 33 Urine Color Urine Appearance Urine pH Ur Specific Suches Urine Protein Urine Glucose (UA) Urine Ketones Urine Blood Urine Nitrite Ur Leukocyte Esterase Urine RBC Urine WBC Ur Squamous Epith Cells Urine Bacteria Hyaline Casts Urine Opiates Screen Urine Fentanyl Screen Ur Barbiturates Screen Ur Phencyclidine Scrn Ur Amphetamines Screen U Benzodiazepines Scrn Urine Cocaine Screen U Marijuana (THC) Screen Ethyl Alcohol 56 COVID-19 ([facility]) COVID-19 Clin Com 11/01/22 11/01/22 11/01/22 08:11 08:11 08:38 MCV MCH MCHC RDW Plt Count MPV Immature Gran % (Auto) Neut % (Auto) Lymph % (Auto) Mobile % (Auto) Eos % (Auto) Baso % (Auto) Lymph # (Auto) Mobile # (Auto) Eos # (Auto) Baso # (Auto) Abs Immat Gran (auto) Absolute Neuts (auto) Absolute Nucleated RBC Nucleated RBC % (auto) PT 10.8 L INR 0.9 Anion Gap Estim Creat Clear Calc Estimated GFR Random Glucose Lactic Acid Lactic Acid F/U @ 2Hr Calcium Magnesium Total Bilirubin Direct Bilirubin AST ALT Alkaline Phosphatase Total Creatine Kinase Total Protein Albumin Lipase Urine Color Yellow Urine Appearance Clear Urine pH 5.5 Ur Specific Suches 1.020 Urine Protein 30 (1+) H Urine Glucose (UA) Negative Urine Ketones 15 Urine Blood Negative Urine Nitrite Negative Ur Leukocyte Esterase Negative Urine RBC 0-2 Urine WBC 0-5 Ur Squamous Epith Cells 0-2 Urine Bacteria None Seen Hyaline Casts >20 Urine Opiates Screen Urine Fentanyl Screen Ur Barbiturates Screen Ur Phencyclidine Scrn Ur Amphetamines Screen U Benzodiazepines Scrn Urine Cocaine Screen U Marijuana (THC) Screen Ethyl Alcohol COVID-19 ([facility]ITHA) Negative COVID-19 Clin Com See Note 11/01/22 11/01/22 08:38 09:39 MCV MCH MCHC RDW Plt Count MPV Immature Gran % (Auto) Neut % (Auto) Lymph % (Auto) Mobile % (Auto) Eos % (Auto) Baso % (Auto) Lymph # (Auto) Mobile # (Auto) Eos # (Auto) Baso # (Auto) Abs Immat Gran (auto) Absolute Neuts (auto) Absolute Nucleated RBC Nucleated RBC % (auto) PT INR Anion Gap Estim Creat Clear Calc Estimated GFR Random Glucose Lactic Acid Lactic Acid F/U @ 2Hr 2.9 H* Calcium Magnesium Total Bilirubin Direct Bilirubin AST ALT Alkaline Phosphatase Total Creatine Kinase Total Protein Albumin Lipase Urine Color Urine Appearance Urine pH Ur Specific Suches Urine Protein Urine Glucose (UA) Urine Ketones Urine Blood Urine Nitrite Ur Leukocyte Esterase Urine RBC Urine WBC Ur Squamous Epith Cells Urine Bacteria Hyaline Casts Urine Opiates Screen Not Detected Urine Fentanyl Screen POSITIVE H Ur Barbiturates Screen Not Detected Ur Phencyclidine Scrn Not Detected Ur Amphetamines Screen Not Detected U Benzodiazepines Scrn Not Detected Urine Cocaine Screen Not Detected U Marijuana (THC) Screen Not Detected Ethyl Alcohol COVID-19 ([facility]ITH[facility]) COVID-19 Clin Com Imaging Radiologist's Impressions: Impressions Chest X-Ray 11/01/22 07:55 IMPRESSION: No evidence of acute pulmonary process. Left clavicular fracture, see clavicle x-ray report. Clavicle X-Ray 11/01/22 07:55 IMPRESSION: Comminuted displaced fracture of the mid/lateral aspect of clavicle, with apparent overriding of fracture fragments. Evaluation is limited in the provided views, by positioning/technique. Additional/repeat clavicle x-rays as clinically warranted. Lucency in the acromium, only visualized on one view, could be related to overlapping densities, with an undisplaced fracture cannot be excluded. Limited evaluation of the scapula/glenoid. Shoulder radiographs for further evaluation as clinically warranted. Calcifications/ossifications superior to the greater tuberosity, suggestive of calcific tendinitis/bursitis. Osteopenia limits evaluation. Hip X-Ray 11/01/22 07:55 IMPRESSION: Hardware stabilizing old healed right hip fracture. There is no hardware loosening or recurrent fracture seen. The joint space is maintained normal Cervical Spine CT 11/01/22 08:00 IMPRESSION: 1. No evidence of acute intracranial hemorrhage or edematous territorial infarction. Moderate underlying microangiopathy and generalized cerebral volume loss. 2. No evidence of acute fracture or traumatic subluxation of the cervical spine. Moderate multilevel degenerative spondyloarthropathy of the cervical spine. 3. Moderately displaced fracture of the mid left clavicular shaft. Head CT 11/01/22 08:00 IMPRESSION: 1. No evidence of acute intracranial hemorrhage or edematous territorial infarction. Moderate underlying microangiopathy and generalized cerebral volume loss. 2. No evidence of acute fracture or traumatic subluxation of the cervical spine. Moderate multilevel degenerative spondyloarthropathy of the cervical spine. 3. Moderately displaced fracture of the mid left clavicular shaft. Assessment and Plan (1) Clavicle fracture: Qualifiers: Clavicle location: shaft Encounter type: initial encounter Fracture alignment: displaced Fracture type: closed Laterality: left Qualified Code(s): S42.022A - Displaced fracture of shaft of left clavicle, initial encounter for closed fracture Status: Acute (2) COPD exacerbation: Status: Acute (3) Acute hyponatremia: Status: Acute (4) Acidosis, lactic: Status: Acute (5) Alcohol withdrawal: Qualifiers: Complication of substance-induced condition: with unspecified complication Qualified Code(s): F10.939 - Alcohol use, unspecified with withdrawal, unspecified Status: Acute Plan 67 year old with alcohol dependence here with mechanical fall resulting in left clavicular fracture, also found to have hyponatremia, acute lactic acidosis, and impending alcohol withdrawal Impending alcohol withdrawal--continue Phenobarbital , folic thiamine supplementation Hyponatremia d/t to beer potomania, IVF and repeat level Left clavicular facture--has left arm sling, ortho consult Acute lactic acidosis NOT due to sepsis, lactic from liver disease, improving, no need to repeat, Elevated LFTS--likely from chronic alcoholic liver disease Moderate Protein calory malnutrition, proteint supplement COPD with mild hypoxia,but not necessary acute exacerbation Falls, 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 Quality Stroke Does the patient have a stroke diagnosis?: No VTE Prior VTE?: No VTE Risk Level:: Medical - moderate - high VTE Device Contraindication: Treatment Not Indicated VTE Drug Contraindication: N/A - Med Ordered
[2022-11-01] MEDS: PHENobarbitaL sodium 130 MG/ML VIAL IM Q3Hx2 164 MG IM ×2 (10:50→14:13)
--- NOTE | 2022-11-01 11:09 | PHA.MEDREC ---
Pharmacy Consult ? Medication Reconciliation Pharmacy has completed the medication reconciliation. spoke with patient to confirm medications.
--- NOTE | 2022-11-01 11:13 | PC.NURSE ---
patient resting in stretcher, shows no signs of distress. patient states he has no pain since the shoulder sling was placed.
[2022-11-01] MEDS: Folic Acid 1 MG TABLET PO (11:37)
[2022-11-01] MEDS: Thiamine HCL 100 MG TABLET PO (11:37)
[2022-11-01] MEDS: Enoxaparin Sodium 40 MG/0.4 ML SYRINGE SUBCUT (11:38)
[2022-11-01 12:03] LABS: Reflex Lactate? 2 Y
--- NOTE | 2022-11-01 13:52 | PM.CNOR ---
History of Present Illness HPI Consult date: 11/01/22 Requesting physician: Chirag Ortiz Chief complaint: alcohol withdrawal, hyponatremia, falls Narrative: Left clavicle fx after fall + etoh PMFSH Past Medical History Medical History (Updated 11/01/22 @ 11:26 by Chirag Ortiz MD) Acute hypokalemia Adult failure to thrive Hip fracture No pertinent past medical history Family History Family History Mother Lung cancer Sister Lung cancer Social History Social History Household Members: Spouse Housing: Apartment Do you presently have visiting nurse or other home services: No Alcohol intake: current Alcohol intake frequency: 3 or more drinks per day Alcohol type: beer Patient Tobacco Use Status: Current everyday Tobacco user Tobacco use type: Cigarette Cigarettes Per Day: 1 Smoked in Last 30 Days: Yes Use of substances other than those prescribed or required for medical reasons: No Advance Directives: No Advance Directives Information Provided: No service: No Current occupational status: employed Meds Allergies Allergy/AdvReac Type Severity Reaction Status Date / Time No Known Allergies Allergy Unverified 12/01/19 16:48 Active Medications: Current Medications Enoxaparin Sodium (Enoxaparin Sodium 40 Mg/0.4 Ml Syringe) 40 mg SUBCUT Q24H [facility] Last Admin: 11/01/22 11:38 Dose: 40 mg Folic Acid (Folic Acid 1 Mg Tablet) 1 mg PO DAILY TRAN Stop: 11/03/22 09:01 Last Admin: 11/01/22 11:37 Dose: 1 mg Sodium Chloride (Ns) 1,000 mls @ 100 mls/hr IVCONT .Q10H [facility] Last Admin: 11/01/22 10:18 Dose: 100 mls/hr Sodium Chloride (Ns) 1,000 mls @ 100 mls/hr IVCONT .Q10H [facility] Last Admin: 11/01/22 12:51 Dose: Not Given Magnesium Hydroxide (Milk Of Magnesia 30 Ml Oral.Susp) 30 ml PO DAILY PRN PRN Reason: Constipation Melatonin (Melatonin 3 Mg Tablet) 6 mg PO BEDTIME PRN PRN Reason: Insomnia Ondansetron HCl (Ondansetron Hcl 4 Mg/2 Ml Vial) 4 mg IVPUSH Q8H PRN PRN Reason: Nausea and Vomiting Pharmacy Consult (Consult Rx Etoh Phenob Im/Po) 1 each MISCELLANE ONCE PRN; Protocol PRN Reason: Consult order Phenobarbital (Phenobarbital 15 Mg Tablet) 45 mg PO BID [facility] Stop: 11/03/22 21:01 Phenobarbital (Phenobarbital 30 Mg Tablet) 30 mg PO BID [facility] Stop: 11/05/22 21:01 Phenobarbital (Phenobarbital 30 Mg Tablet) 30 mg PO DAILY [facility] Stop: 11/07/22 09:01 Phenobarbital Sodium (Phenobarbital Sodium 130 Mg/Ml Vial Im Q3hx2) 164 mg IM Q3H [facility] Stop: 11/01/22 14:01 Last Admin: 11/01/22 10:50 Dose: 164 mg Sodium Chloride (0.9 % Sodium Chloride Flush 3 Ml Syringe) 3 ml IVFLUSH QSHIFT [facility] Thiamine HCl (Thiamine Hcl 100 Mg Tablet) 100 mg PO DAILY [facility] Stop: 11/03/22 09:01 Last Admin: 11/01/22 11:37 Dose: 100 mg Home Medications Medication Instructions Recorded Confirmed Last Taken Type acetaminophen 325 mg tablet 1,300 - 1,950 mg PO DAILY PRN Pain 11/16/21 11/01/22 11/16/21 History (Tylenol) polyethylene glycol 3350 17 17 g PO DAILY PRN Constipation 11/01/22 11/01/22 Unknown History gram/dose oral powder (Miralax) Physical Exam Vital Signs: Vital Signs: Last Vital Signs Temp 98.2 F 11/01/22 07:19 Pulse 112 H 11/01/22 10:55 Resp 20 11/01/22 10:55 BP 177/105 H 11/01/22 10:55 Pulse Ox 92 11/01/22 10:55 O2 Del Method Nasal Cannula 11/01/22 10:55 O2 Flow Rate 3 11/01/22 10:55 BMI result Body Mass Index 18.4 Extrem: Other: shortened mid shaft clavicle fracture without superior displacement. Results Labs 11/01/22 07:27 11/01/22 07:27 Labs: Abnormal lab results 11/01/22 11/01/22 11/01/22 Range/Units 07:27 07:27 07:27 WBC 11.2 H (4.8-10.8) X10*3/uL RBC 3.65 L (4.60-5.80) X10*6/uL Hgb 13.1 L (14.0-18.0) g/dl Hct 36.3 L (42.0-52.0) % MCV 99.5 H (80.0-98.0) fL MCH 35.9 H (27.0-33.0) pg MCHC 36.1 H (31.0-36.0) g/dl MPV 8.0 L (9.4-12.4) fL Immature Gran % (Auto) 0.5 H (0.0-0.4) % Neut % (Auto) 86.9 H (45-73) % Lymph % (Auto) 5.1 L (20-40) % Lymph # (Auto) 0.6 L (1.2-4.9) X10*3/uL Abs Immat Gran (auto) 0.06 H (0.00-0.03) X10*3/uL Absolute Neuts (auto) 9.8 H (2.0-8.3) x10*3/uL PT (11.1-13.3) SEC Sodium 127 L (135-145) mmol/L Chloride 89 L (96-108) mmol/L Carbon Dioxide 18 L (22-29) mmol/L Anion Gap 25 H (12-20) Lactic Acid 4.9 H* (0.5-2.0) mmol/L Lactic Acid F/U @ 2Hr (0.5-2.0) mmol/L Total Bilirubin 1.2 H (0.0-1.0) mg/dL AST 95 H (5-37) U/L ALT 57 H (0-40) U/L Total Creatine Kinase 1892 H (38-174) U/L Urine Protein (Neg-Trace) mg/dL Urine Fentanyl Screen (Not Detect) 11/01/22 11/01/22 11/01/22 Range/Units 08:11 08:38 08:38 WBC (4.8-10.8) X10*3/uL RBC (4.60-5.80) X10*6/uL Hgb (14.0-18.0) g/dl Hct (42.0-52.0) % MCV (80.0-98.0) fL MCH (27.0-33.0) pg MCHC (31.0-36.0) g/dl MPV (9.4-12.4) fL Immature Gran % (Auto) (0.0-0.4) % Neut % (Auto) (45-73) % Lymph % (Auto) (20-40) % Lymph # (Auto) (1.2-4.9) X10*3/uL Abs Immat Gran (auto) (0.00-0.03) X10*3/uL Absolute Neuts (auto) (2.0-8.3) x10*3/uL PT 10.8 L (11.1-13.3) SEC Sodium (135-145) mmol/L Chloride (96-108) mmol/L Carbon Dioxide (22-29) mmol/L Anion Gap (12-20) Lactic Acid (0.5-2.0) mmol/L Lactic Acid F/U @ 2Hr (0.5-2.0) mmol/L Total Bilirubin (0.0-1.0) mg/dL AST (5-37) U/L ALT (0-40) U/L Total Creatine Kinase (38-174) U/L Urine Protein 30 (1+) H (Neg-Trace) mg/dL Urine Fentanyl Screen POSITIVE H (Not Detect) 11/01/22 Range/Units 09:39 WBC (4.8-10.8) X10*3/uL RBC (4.60-5.80) X10*6/uL Hgb (14.0-18.0) g/dl Hct (42.0-52.0) % MCV (80.0-98.0) fL MCH (27.0-33.0) pg MCHC (31.0-36.0) g/dl MPV (9.4-12.4) fL Immature Gran % (Auto) (0.0-0.4) % Neut % (Auto) (45-73) % Lymph % (Auto) (20-40) % Lymph # (Auto) (1.2-4.9) X10*3/uL Abs Immat Gran (auto) (0.00-0.03) X10*3/uL Absolute Neuts (auto) (2.0-8.3) x10*3/uL PT (11.1-13.3) SEC Sodium (135-145) mmol/L Chloride (96-108) mmol/L Carbon Dioxide (22-29) mmol/L Anion Gap (12-20) Lactic Acid (0.5-2.0) mmol/L Lactic Acid F/U @ 2Hr 2.9 H* (0.5-2.0) mmol/L Total Bilirubin (0.0-1.0) mg/dL AST (5-37) U/L ALT (0-40) U/L Total Creatine Kinase (38-174) U/L Urine Protein (Neg-Trace) mg/dL Urine Fentanyl Screen (Not Detect) H & H 11/01/22 Range/Units 07:27 Hgb 13.1 L (14.0-18.0) g/dl Hct 36.3 L (42.0-52.0) % Coagulation 11/01/22 Range/Units 08:11 INR 0.9 (0.9-1.1) All other labs normal. Assessment and Plan (1) Clavicle fracture: Qualifiers: Clavicle location: shaft Encounter type: initial encounter Fracture alignment: displaced Fracture type: closed Laterality: left Qualified Code(s): S42.022A - Displaced fracture of shaft of left clavicle, initial encounter for closed fracture Status: Acute Plan Closed clavicle fracture in 67 yo etoh. No acute intervention warranted. Simple sling as needed and clinic follow up in 7-10 days Time Spent With Patient Time: Total time managing care of this patient today ____ minutes. Procedures Date of Service Date of Service: 11/01/22
--- NOTE | 2022-11-01 15:37 | PC.NURSE ---
patient resting in stretcher, overall appearance looks better. patient is using urinal without assistance. able to make needs known, shows no signs of distress
[2022-11-01] MEDS: Losartan Potassium 25 MG TABLET PO (19:26)
[2022-11-02] VITALS (8 sets, daily range): BP systolic 138–176; BP diastolic 54–98; PULSE 84–110; RESP 16–20; TEMP 36.3–36.8; O2SAT 89–99
[2022-11-02] MEDS: 0.9 % Sodium Chloride 1,000 ML 100 ML IVCONT ×2 (04:41→14:54)
[2022-11-02] MEDS: Acetaminophen 325 MG TABLET 650 MG PO ×2 (05:07→10:03)
[2022-11-02 06:45] LABS: Anion Gap 13 (12-20); Blood Urea Nitrogen 7 mg/dL (9-16); Calcium 8.5 mg/dL (8.4-10.2); Carbon Dioxide 25 mmol/L (22-29); Chloride 93 mmol/L (96-108); Creatinine Clr Calc Pharmacy 113.3; Estimated Glomerular Filt Rate > 60; Glucose Random 99 mg/dL (60-115); Potassium 4.1 mmol/L (3.3-5.1); Sodium 127 mmol/L (135-145)
--- NOTE | 2022-11-02 09:01 | P.PNIM_ITS ---
Subjective Subjective Date of Service: 11/02/22 Interval History: f/u on alcohol withdrawal, left clavicular fracture interval history: call, no overt sings of withdrawal, pain is controlled Physical Exam Vital Signs: Vital Signs: Last Vital Signs Temp 97.5 F 11/02/22 08:00 Pulse 94 11/02/22 08:00 Resp 20 11/02/22 08:00 BP 163/89 H 11/02/22 08:00 Pulse Ox 95 11/02/22 08:00 O2 Del Method Nasal Cannula 11/02/22 08:00 O2 Flow Rate 2 11/02/22 08:00 BMI result Body Mass Index 19.0 Const: Other: General: AO X 3, no acute distress Resp: CTA bilateral CVS: S1,S2,RRR GI: +BS, NT, no distention Skin: No rash ex left arm sling in place Neuro: motor grossly intact Psych: appropriate affect Objective Data Active Medications Acetaminophen (Acetaminophen 325 Mg Tablet) 650 mg PO Q4H PRN PRN Reason: Pain, Mild (Pain Scale 1-3) Last Admin: 11/02/22 05:07 Dose: 650 mg Documented By: MARSHA Amlodipine Besylate (Amlodipine Besylate 5 Mg Tablet) 5 mg PO DAILY [facility]; Protocol Enoxaparin Sodium (Enoxaparin Sodium 40 Mg/0.4 Ml Syringe) 40 mg SUBCUT Q24H [facility] Last Admin: 11/01/22 11:38 Dose: 40 mg Documented By: RODRICK Folic Acid (Folic Acid 1 Mg Tablet) 1 mg PO DAILY TRAN Stop: 11/03/22 09:01 Last Admin: 11/01/22 11:37 Dose: 1 mg Documented By: RODRICK Sodium Chloride (Ns) 1,000 mls @ 100 mls/hr IVCONT .Q10H TRAN Last Admin: 11/02/22 04:41 Dose: 100 mls/hr Documented By: MARSHA Sodium Chloride (Ns) 1,000 mls @ 100 mls/hr IVCONT .Q10H TRAN Last Admin: 11/02/22 00:21 Dose: Not Given Documented By: MARSHA Non-Admin Reason: Duplicate Order Losartan Potassium (Losartan Potassium 25 Mg Tablet) 25 mg PO DAILY [facility]; Protocol Last Admin: 11/01/22 19:26 Dose: 25 mg Documented By: MARSHA Magnesium Hydroxide (Milk Of Magnesia 30 Ml Oral.Susp) 30 ml PO DAILY PRN PRN Reason: Constipation Melatonin (Melatonin 3 Mg Tablet) 6 mg PO BEDTIME PRN PRN Reason: Insomnia Ondansetron HCl (Ondansetron Hcl 4 Mg/2 Ml Vial) 4 mg IVPUSH Q8H PRN PRN Reason: Nausea and Vomiting Pharmacy Consult (Consult Rx Etoh Phenob Im/Po) 1 each MISCELLANE ONCE PRN; Protocol PRN Reason: Consult order Phenobarbital (Phenobarbital 15 Mg Tablet) 45 mg PO BID [facility] Stop: 11/03/22 21:01 Phenobarbital (Phenobarbital 30 Mg Tablet) 30 mg PO BID [facility] Stop: 11/05/22 21:01 Phenobarbital (Phenobarbital 30 Mg Tablet) 30 mg PO DAILY [facility] Stop: 11/07/22 09:01 Sodium Chloride (0.9 % Sodium Chloride Flush 3 Ml Syringe) 3 ml IVFLUSH QSHIFT [facility] Last Admin: 11/01/22 22:56 Dose: Not Given Documented By: MARSHA Non-Admin Reason: IV Running Thiamine HCl (Thiamine Hcl 100 Mg Tablet) 100 mg PO DAILY [facility] Stop: 11/03/22 09:01 Last Admin: 11/01/22 11:37 Dose: 100 mg Documented By: RODRICK Labs 11/01/22 07:27 11/02/22 05:38 Labs: Laboratory Results - last 24 hr 11/01/22 11/01/22 11/02/22 09:39 12:21 05:38 Anion Gap 13 Estim Creat Clear Calc 113.3 Estimated GFR > 60 Random Glucose 99 Lactic Acid F/U @ 2Hr 2.9 H* Lactic Acid F/U @ 4Hr 1.0 Calcium 8.5 D Assessment and Plan (1) Clavicle fracture: Status: Acute (2) Alcohol withdrawal: Status: Acute (3) Hyponatremia: Status: Acute Plan 67 year old with alcohol dependence here with mechanical fall resulting in left clavicular fracture, also found to have hyponatremia, acute lactic acidosis, and impending alcohol withdrawal Impending alcohol withdrawal--continue Phenobarbital , folic thiamine supplementation Hyponatremia d/t to beer potomania, adcute on chronic, fluid restriction and continue monitoring Left clavicular facture--has left arm sling, ortho recommends sling and outpatient follow up in a week Acute lactic acidosis NOT due to sepsis, lactic from liver disease, improved, Elevated LFTS--likely from chronic alcoholic liver disease Moderate Protein calory malnutrition, proteint supplement COPD with mild hypoxia,but not necessary acute exacerbation Falls, 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 Quality Stroke Does the patient have a stroke diagnosis?: No VTE Prior VTE?: No VTE Risk Level:: Medical - moderate - high VTE Device Contraindication: Treatment Not Indicated VTE Drug Contraindication: N/A - Med Ordered
[2022-11-02] MEDS: PHENobarbitaL 15 MG TABLET 45 MG PO ×2 (09:03→20:31)
[2022-11-02] MEDS: amLODIPine Besylate 5 MG TABLET PO (09:03)
[2022-11-02] MEDS: Losartan Potassium 25 MG TABLET PO (09:03)
[2022-11-02] MEDS: Thiamine HCL 100 MG TABLET PO (09:09)
[2022-11-02] MEDS: Folic Acid 1 MG TABLET PO (09:09)
[2022-11-02] MEDS: Nicotine 14 MG PATCH.TD24 TRANSDERMA (09:20)
[2022-11-02] MEDS: 0.9 % Sodium Chloride Flush 3 ML SYRINGE IVFLUSH (10:04)
--- NOTE | 2022-11-02 10:44 | MHC.CM.PN ---
Addendum entered by Meenu Siegel 11/02/22 12:47: PT and OT evaluations are pending. PT/OT are not available on Thursday. Patient will be seen tomorrow for evaluations. Original Note: Male 67 s/p FX Clavicle No surgical intervention. Arm is in a sling. He is independent with all functional mobility at baseline. A new HCP has been documented. DP home self care. Patient will arrange for transport home.
[2022-11-02] MEDS: Enoxaparin Sodium 40 MG/0.4 ML SYRINGE SUBCUT (11:24)
[2022-11-02] MEDS: Albuterol Sulfate 90 MCG 8 GM INHALER 2 PUFF INHALE (11:25)
[2022-11-02 12:54] LABS: Fentanyl, urine SEE COMMENTS (Not Detect)
[2022-11-02] MEDS: Albuterol/Iprat 2.5/0.5MG 3 ML AMPUL.NEB INHALE ×2 (16:00→19:59)
[2022-11-03] VITALS (7 sets, daily range): BP systolic 116–145; BP diastolic 62–78; PULSE 86–119; RESP 14–20; TEMP 36.2–36.6; O2SAT 95–97; BMI 19.0
[2022-11-03] MEDS: Acetaminophen 325 MG TABLET 650 MG PO ×3 (00:10→20:27)
[2022-11-03] MEDS: 0.9 % Sodium Chloride 1,000 ML 100 ML IVCONT ×2 (00:20→08:53)
[2022-11-03] MEDS: Ketorolac Tromethamine 30 MG/ML VIAL IVPUSH (05:36)
[2022-11-03 05:59] LABS: Anion Gap 11 (12-20); Blood Urea Nitrogen 5 mg/dL (9-16); Calcium 8.1 mg/dL (8.4-10.2); Carbon Dioxide 26 mmol/L (22-29); Chloride 94 mmol/L (96-108); Creatinine Clr Calc Pharmacy 113.3; Estimated Glomerular Filt Rate > 60; Glucose Random 97 mg/dL (60-115); Potassium 3.3 mmol/L (3.3-5.1); Sodium 128 mmol/L (135-145)
--- NOTE | 2022-11-03 08:41 | P.PNIM_ITS ---
Subjective Subjective Date of Service: 11/03/22 Interval History: f/u on alcohol withdrawal, left clavicular fracture interval history: He is has trouble walking due right hip pain from pelvic fracture, no withdrawal Physical Exam Vital Signs: Vital Signs: Last Vital Signs Temp 97.8 F 11/03/22 07:39 Pulse 92 11/03/22 07:39 Resp 20 11/03/22 07:39 BP 137/78 11/03/22 07:39 Pulse Ox 96 11/03/22 07:39 O2 Del Method Nasal Cannula 11/03/22 07:39 O2 Flow Rate 2 11/03/22 07:39 BMI result Body Mass Index 19.0 Const: Other: General: AO X 3, no acute distress Resp: CTA bilateral CVS: S1,S2,RRR GI: +BS, NT, no distention Skin: No rash ex left arm sling in place Neuro: motor grossly intact Psych: appropriate affect Objective Data Active Medications Acetaminophen (Acetaminophen 325 Mg Tablet) 650 mg PO Q4H PRN PRN Reason: Pain, Mild (Pain Scale 1-3) Last Admin: 11/03/22 00:10 Dose: 650 mg Documented By: MARSHA Albuterol Sulfate (Albuterol Sulfate 90 Mcg 8 Gm Inhaler) 2 puff INHALE RQ6H PRN PRN Reason: Shortness of Breath Last Admin: 11/02/22 11:25 Dose: 2 puff Documented By: PAULA Albuterol/Ipratropium (Albuterol/Iprat 2.5/0.5mg 3 Ml Ampul.Neb) 3 ml INHALE RQ4H WHILE AWAKE [facility] Last Admin: 11/03/22 08:38 Dose: Not Given Documented By: PA Non-Admin Reason: Patient Asleep Amlodipine Besylate (Amlodipine Besylate 5 Mg Tablet) 5 mg PO DAILY [facility]; Protocol Last Admin: 11/02/22 09:03 Dose: 5 mg Documented By: PAULA Enoxaparin Sodium (Enoxaparin Sodium 40 Mg/0.4 Ml Syringe) 40 mg SUBCUT Q24H [facility] Last Admin: 11/02/22 11:24 Dose: 40 mg Documented By: PAULA Folic Acid (Folic Acid 1 Mg Tablet) 1 mg PO DAILY [facility] Stop: 11/03/22 09:01 Last Admin: 11/02/22 09:09 Dose: 1 mg Documented By: PAULA Sodium Chloride (Ns) 1,000 mls @ 100 mls/hr IVCONT .Q10H [facility] Last Admin: 11/03/22 00:20 Dose: 100 mls/hr Documented By: MARSHA Losartan Potassium (Losartan Potassium 25 Mg Tablet) 25 mg PO DAILY [facility]; Protocol Last Admin: 11/02/22 09:03 Dose: 25 mg Documented By: PAULA Magnesium Hydroxide (Milk Of Magnesia 30 Ml Oral.Susp) 30 ml PO DAILY PRN PRN Reason: Constipation Melatonin (Melatonin 3 Mg Tablet) 6 mg PO BEDTIME PRN PRN Reason: Insomnia Nicotine Polacrilex (Nicotine Polacrilex 2 Mg Gum) 2 mg BUCCAL Q2H PRN PRN Reason: Nicotine Cravings Ondansetron HCl (Ondansetron Hcl 4 Mg/2 Ml Vial) 4 mg IVPUSH Q8H PRN PRN Reason: Nausea and Vomiting Pharmacy Consult (Consult Rx Etoh Phenob Im/Po) 1 each MISCELLANE ONCE PRN; Protocol PRN Reason: Consult order Phenobarbital (Phenobarbital 15 Mg Tablet) 45 mg PO BID [facility] Stop: 11/03/22 21:01 Last Admin: 11/02/22 20:31 Dose: 45 mg Documented By: MARSHA Phenobarbital (Phenobarbital 30 Mg Tablet) 30 mg PO BID [facility] Stop: 11/05/22 21:01 Phenobarbital (Phenobarbital 30 Mg Tablet) 30 mg PO DAILY [facility] Stop: 11/07/22 09:01 Sodium Chloride (0.9 % Sodium Chloride Flush 3 Ml Syringe) 3 ml IVFLUSH QSHIFT [facility] Last Admin: 11/03/22 07:18 Dose: Not Given Documented By: CARLOS Non-Admin Reason: IV Running Thiamine HCl (Thiamine Hcl 100 Mg Tablet) 100 mg PO DAILY [facility] Stop: 11/03/22 09:01 Last Admin: 11/02/22 09:09 Dose: 100 mg Documented By: PAULA Labs 11/01/22 07:27 11/03/22 05:31 Labs: Laboratory Results - last 24 hr 11/01/22 11/03/22 08:38 05:31 Anion Gap 11 L Estim Creat Clear Calc 113.3 Estimated GFR > 60 Random Glucose 97 Calcium 8.1 L Urine Fentanyl Screen SEE COMMENTS Microbiology Microbiology Results: Microbiology 11/01/22 08:11 Blood Culture - Preliminary Blood - Venous No growth after 24 hours. 11/01/22 07:27 Blood Culture - Preliminary Blood - Venous No growth after 24 hours. Assessment and Plan (1) Clavicle fracture: Status: Acute (2) Alcohol withdrawal: Status: Acute (3) Hyponatremia: Status: Acute Plan 67 year old with alcohol dependence here with mechanical fall resulting in left clavicular fracture and right pelvic fracture, also found to have hyponatremia, acute lactic acidosis, and impending alcohol withdrawal Alcohol withdrawal--continue Phenobarbital , folic thiamine supplementation Hyponatremia d/t to beer potomania, acute on chronic, fluid restriction and continue monitoring Left clavicular facture--has left arm sling, ortho recommends sling and outpatient follow up in a week right pelvic fracture from fall, WBAT with walker. 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 Quality Stroke Does the patient have a stroke diagnosis?: No VTE Prior VTE?: No VTE Risk Level:: Medical - moderate - high VTE Device Contraindication: Treatment Not Indicated VTE Drug Contraindication: N/A - Med Ordered
[2022-11-03] MEDS: Losartan Potassium 25 MG TABLET PO (08:53)
[2022-11-03] MEDS: amLODIPine Besylate 5 MG TABLET PO (08:53)
[2022-11-03] MEDS: Thiamine HCL 100 MG TABLET PO (08:53)
[2022-11-03] MEDS: PHENobarbitaL 15 MG TABLET 45 MG PO ×2 (08:53→20:27)
[2022-11-03] MEDS: Folic Acid 1 MG TABLET PO (08:53)
--- NOTE | 2022-11-03 10:32 | MHC.RECOVRN ---
In to meet pt with ROSA Ortega. Pt currently supine in bed, alert, pleasant. Reports he began drinking when he was a teenager, and had started with beer. Reports use escalated in his 50's and states current use is 5 beers, and 1/2 pint of [place] daily. Denies any other substance use. Pt denies hx of going to any detoxes or [facility]. States he does not have a PCP. Pt reports previously attending AA meetings. Pt expressing interest in programs based out of [place]. States that he would like to stop drinking, I just want to try and be healthy. Harm reduction education provided, resources left at bedside for pt and his to review.
[2022-11-03] MEDS: Enoxaparin Sodium 40 MG/0.4 ML SYRINGE SUBCUT (11:15)
[2022-11-03] MEDS: Albuterol/Iprat 2.5/0.5MG 3 ML AMPUL.NEB INHALE ×3 (11:33→19:44)
--- NOTE | 2022-11-03 12:01 | MHC.CLN ---
NUTRITION CHANGES SUPPLEMENT TO ENSURE BID TO PROVIDE ADDITIONAL NUTRITION/PROTEIN. SUPPLEMENT PROVIDES 700 KCALS, 40 G PROTEIN. DIET=REGULAR WITH 1500 ML FLUID RESTRICTION. ENSURE BID PROVIDES APPROX 400 ML FREE WATER.
--- NOTE | 2022-11-03 15:52 | MHC.CM.PN ---
per rounds pt maybe dcd today plan [facility] home no servceis
--- NOTE | 2022-11-03 17:42 | P.EN_ITS ---
Event Note Date of Service: 11/03/22 Event Note: Addiction Consult placed for patient Seen by machine striper Support provided patient to be discharged to [facility]--to follow up indicated at this time Time Spent With Patient Time: Total time managing care of this patient today ____ minutes.
--- NOTE | 2022-11-03 17:42 | PM.EVENT ---
Event Note Date of Service: 11/03/22 Event Note: Addiction Consult placed for patient Seen by infectious diseases physician Support provided patient to be discharged to [facility]--to follow up indicated at this time Time Spent With Patient Time: Total time managing care of this patient today ____ minutes.
[2022-11-03] MEDS: Melatonin 3 MG TABLET 6 MG PO (20:28)
[2022-11-03] MEDS: 0.9 % Sodium Chloride Flush 3 ML SYRINGE IVFLUSH (20:30)
[2022-11-04] VITALS (7 sets, daily range): BP systolic 143–153; BP diastolic 78–96; PULSE 88–107; RESP 12–20; TEMP 36–36.6; O2SAT 93–99
[2022-11-04] MEDS: Albuterol/Iprat 2.5/0.5MG 3 ML AMPUL.NEB INHALE ×3 (08:29→20:23)
[2022-11-04] MEDS: PHENobarbitaL 30 MG TABLET PO ×2 (08:45→20:34)
[2022-11-04] MEDS: Nicotine 14 MG PATCH.TD24 TRANSDERMA (08:45)
[2022-11-04] MEDS: 0.9 % Sodium Chloride Flush 3 ML SYRINGE IVFLUSH ×2 (08:46→20:34)
[2022-11-04] MEDS: Losartan Potassium 25 MG TABLET PO (08:46)
[2022-11-04] MEDS: amLODIPine Besylate 5 MG TABLET PO (08:46)
[2022-11-04] MEDS: Acetaminophen 325 MG TABLET 650 MG PO ×3 (08:51→20:34)
[2022-11-04 09:48] LABS: Anion Gap 11 (12-20); Blood Urea Nitrogen 4 mg/dL (9-16); Calcium 8.6 mg/dL (8.4-10.2); Carbon Dioxide 30 mmol/L (22-29); Chloride 91 mmol/L (96-108); Creatinine Clr Calc Pharmacy 111.2; Estimated Glomerular Filt Rate > 60; Glucose Random 100 mg/dL (60-115); Potassium 3.2 mmol/L (3.3-5.1); Sodium 129 mmol/L (135-145)
--- NOTE | 2022-11-04 11:53 | MHC.CM.PN ---
Per MD rounds patient qualifies for STR. Patient preferences obtained and referrals have been sent. The patient accepted a bed offer from [facility]. DP [facility] for STR via BLS.
[2022-11-04] MEDS: Enoxaparin Sodium 40 MG/0.4 ML SYRINGE SUBCUT (12:02)
--- NOTE | 2022-11-04 14:46 | HO.PM.IMPN ---
Subjective Subjective Date of Service: 11/04/22 Interval History: Seen and evaluated this morning complaining of pain in his leg feels unsteady on his feet Shoulder pain No fever or chills Review of Systems Review of Systems: Yes all other systems are reviewed and are negative Physical Exam Vital Signs: Vital Signs: Last Vital Signs Temp 97.4 F 11/04/22 07:29 Pulse 107 H 11/04/22 08:33 Resp 18 11/04/22 08:33 BP 144/96 H 11/04/22 07:29 Pulse Ox 96 11/04/22 07:29 O2 Del Method Nasal Cannula 11/04/22 07:29 O2 Flow Rate 1.5 11/04/22 07:29 BMI result Body Mass Index 19.0 Const: Other: Constitutional : Awake, interactive, not in distress Cardiovascular : RRR, no JVP, no lower extremity edema Respiratory : good bilateral air entry, no crackles, wheezes or rhonchi Gastrointestinal: soft, lax, Normal bowel sounds, Non tender Skin : Warm, Dry Extremities: LUE in cast, RLE with restricted ROM from pain Neurological : Alert & oriented x3, No focal deficit Objective Data Active Medications Acetaminophen (Acetaminophen 325 Mg Tablet) 650 mg PO Q4H PRN PRN Reason: Pain, Mild (Pain Scale 1-3) Last Admin: 11/04/22 08:51 Dose: 650 mg Documented By: CHANDU Albuterol Sulfate (Albuterol Sulfate 90 Mcg 8 Gm Inhaler) 2 puff INHALE RQ6H PRN PRN Reason: Shortness of Breath Last Admin: 11/02/22 11:25 Dose: 2 puff Documented By: PAULA Albuterol/Ipratropium (Albuterol/Iprat 2.5/0.5mg 3 Ml Ampul.Neb) 3 ml INHALE RQ4H WHILE AWAKE [facility] Last Admin: 11/04/22 11:38 Dose: Not Given Documented By: JERARDO Non-Admin Reason: not available Amlodipine Besylate (Amlodipine Besylate 5 Mg Tablet) 5 mg PO DAILY [facility]; Protocol Last Admin: 11/04/22 08:46 Dose: 5 mg Documented By: CHANDU Enoxaparin Sodium (Enoxaparin Sodium 40 Mg/0.4 Ml Syringe) 40 mg SUBCUT Q24H [facility] Last Admin: 11/04/22 12:02 Dose: 40 mg Documented By: CHANDU Losartan Potassium (Losartan Potassium 25 Mg Tablet) 25 mg PO DAILY [facility]; Protocol Last Admin: 11/04/22 08:46 Dose: 25 mg Documented By: CHANDU Magnesium Hydroxide (Milk Of Magnesia 30 Ml Oral.Susp) 30 ml PO DAILY PRN PRN Reason: Constipation Melatonin (Melatonin 3 Mg Tablet) 6 mg PO BEDTIME PRN PRN Reason: Insomnia Last Admin: 11/03/22 20:28 Dose: 6 mg Documented By: WICHO Nicotine (Nicotine 14 Mg Patch.Td24) 14 mg TRANSDERMA DAILY [facility] Last Admin: 11/04/22 08:45 Dose: 14 mg Documented By: CHANDU Nicotine Polacrilex (Nicotine Polacrilex 2 Mg Gum) 2 mg BUCCAL Q2H PRN PRN Reason: Nicotine Cravings Ondansetron HCl (Ondansetron Hcl 4 Mg/2 Ml Vial) 4 mg IVPUSH Q8H PRN PRN Reason: Nausea and Vomiting Pharmacy Consult (Consult Rx Etoh Phenob Im/Po) 1 each MISCELLANE ONCE PRN; Protocol PRN Reason: Consult order Phenobarbital (Phenobarbital 30 Mg Tablet) 30 mg PO BID [facility] Stop: 11/05/22 21:01 Last Admin: 11/04/22 08:45 Dose: 30 mg Documented By: CHANDU Phenobarbital (Phenobarbital 30 Mg Tablet) 30 mg PO DAILY [facility] Stop: 11/07/22 09:01 Potassium Chloride (Potassium Chloride Packet 20 Meq Packet) 40 meq PO ONCE ONE Stop: 11/04/22 14:46 Sodium Chloride (0.9 % Sodium Chloride Flush 3 Ml Syringe) 3 ml IVFLUSH QSHIFT [facility] Last Admin: 11/04/22 08:46 Dose: 3 ml Documented By: CHANDU Labs 11/01/22 07:27 11/04/22 08:39 Labs: Laboratory Results - last 24 hr 11/04/22 08:39 Anion Gap 11 L Estim Creat Clear Calc 111.2 Estimated GFR > 60 Random Glucose 100 Calcium 8.6 D Assessment and Plan (1) Hyponatremia: Status: Acute (2) Clavicle fracture: Status: Acute (3) Right leg weakness: Status: Acute (4) Acute hyponatremia: Status: Acute (5) Alcohol withdrawal: Status: Acute Plan 67 year old with alcohol dependence here with mechanical fall resulting in left clavicular fracture and right pelvic fracture, also found to have hyponatremia, acute lactic acidosis, and impending alcohol withdrawal Alcohol withdrawal continue Phenobarbital folic acid and thiamine supplementation Hyponatremia d/t to beer potomania, acute on chronic, fluid restriction and continue monitoring w improvement to 129. Left clavicular facture has left arm sling, ortho recommends sling and outpatient follow up in a week right pelvic fracture from fall Ortho input appreciated; WBAT with walker. 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 Quality Stroke Does the patient have a stroke diagnosis?: No VTE Prior VTE?: No VTE Risk Level:: Medical - moderate - high VTE Device Contraindication: Treatment Not Indicated VTE Drug Contraindication: N/A - Med Ordered
[2022-11-04] MEDS: Potassium Chloride Packet 20 MEQ PACKET 40 MEQ PO (15:00)
[2022-11-04] MEDS: Melatonin 3 MG TABLET 6 MG PO (20:34)
[2022-11-05 03:19] VITALS: BP 153/96; PULSE 100; RESP 17; TEMP 36.6; O2SAT 96
[2022-11-05 06:11] LABS: Anion Gap 11 (12-20); Blood Urea Nitrogen 8 mg/dL (9-16); Calcium 8.6 mg/dL (8.4-10.2); Carbon Dioxide 28 mmol/L (22-29); Chloride 93 mmol/L (96-108); Creatinine Clr Calc Pharmacy 128.1; Estimated Glomerular Filt Rate > 60; Glucose Random 96 mg/dL (60-115); Sodium 128 mmol/L (135-145)
[2022-11-05 07:01] VITALS: BP 152/91; PULSE 98; RESP 18; TEMP 36.1; O2SAT 97
[2022-11-05] MEDS: Losartan Potassium 25 MG TABLET PO (07:33)
[2022-11-05] MEDS: 0.9 % Sodium Chloride Flush 3 ML SYRINGE IVFLUSH (07:33)
[2022-11-05] MEDS: amLODIPine Besylate 5 MG TABLET PO (07:33)
[2022-11-05] MEDS: PHENobarbitaL 30 MG TABLET PO (07:34)
[2022-11-05] MEDS: Acetaminophen 325 MG TABLET 650 MG PO (07:34)
[2022-11-05] MEDS: Nicotine 14 MG PATCH.TD24 TRANSDERMA (07:34)
[2022-11-05] MEDS: Albuterol/Iprat 2.5/0.5MG 3 ML AMPUL.NEB INHALE ×2 (07:48→11:37)
[2022-11-05 07:50] VITALS: PULSE 97; RESP 18; O2SAT 96
--- NOTE | 2022-11-05 07:53 | MHC.CM.PN ---
Patient is discharged to [facility] for STR today. Transportation is booked for 12:30pm pick-up @ [facility] – [place].
--- NOTE | 2022-11-05 10:36 | P.DS_ITS ---
DS: Providers Provider Date of Service: 11/05/22 Date of admission: 11/01/22 11:23 Primary care physician: Antoni Bruce MD Consults: 11/01/22 11:21 Addiction Medicine Routine Consulting Provider: Addiction Covering Reason for consultation: alcohol dependence Has provider been notified: No Consult to Orthopedics Routine Consulting Provider: [facility] Reason for consultation: Left clavicular fracture Has provider been notified: No 11/03/22 07:27 Consult to Orthopedics Routine Consulting Provider: [facility] Reason for consultation: pelvic fractures Has provider been notified: No DS: Diagnosis Discharge Diagnosis (1) Hyponatremia: Status: Acute (2) Clavicle fracture: Status: Acute (3) Right leg weakness: Status: Acute (4) Acute hyponatremia: Status: Acute (5) Alcohol withdrawal: Status: Acute (6) Pubic ramus fracture: Status: Acute (7) COPD exacerbation: Status: Acute DS: Summary Hospital Course Hospital Course: Admission note HPI 67 year old male with no known chronic medical broblems, but drinks regulary at least 5 beers? a day,? and has neuropathy in feet. He presented to the ED due to frequent falls at home, the one from this morning rsulted in left shoulder injury and clavicular fracture on xray, labs show Hyponatremia, acute lactic acidosis, elevated LFTs, positive fentanyl, O2sat? is low at 91 and is being treated for COPD, He has been initiated on Phenobarbital for impending alcohol withdrawal. Hospital course # Alcohol withdrawal. Controlled with Phenobarbital protocol along with folic acid and thiamine supplementation # Hyponatremia d/t to beer potomania, acute on chronic, with presentaiton of 127 improved to 129 at time of discharge with fluid restriction. # Fall with Left clavicular facture. has left arm sling, ortho recommends sling and outpatient follow up in a week for the c # right pelvic fracture. Ortho input appreciated; WBAT with walker with physical therapy. # Elevated LFTS. likely from chronic alcoholic liver disease # Moderate Protein calory malnutrition from alcoholism. protein supplement. advised to quit. Water restriction to 1.2L daily. Quit smoking Complete abstinence from Alcohol Thiamin supplement Continue physical therapy Outpatient follow up with dr Mcallister from Orthopedics in 1-2 weeks Repeat blood work as outpatient Time Spent with Patient Time attestation: Total time managing care of this patient today ____ minutes. Discharge coordination time: Greater than 30 minutes Quality: Safe Use of Opioids Does Pt have an Active Cancer Diagnosis on the Problem List?: No Quality: Stroke Does the patient have a stroke diagnosis?: No Physical Exam Vital Signs: Vital Signs: Last Vital Signs Temp 97 F 11/05/22 07:01 Pulse 97 11/05/22 07:50 Resp 18 11/05/22 07:50 BP 152/91 H 11/05/22 07:01 Pulse Ox 97 11/05/22 07:01 O2 Del Method Room Air 11/05/22 07:01 O2 Flow Rate 1.5 11/04/22 15:53 BMI result Body Mass Index 19.0 Const: Other: Constitutional : Awake, interactive, not in distress Cardiovascular : RRR, no JVP, no lower extremity edema Respiratory : good bilateral air entry, no crackles, wheezes or rhonchi Gastrointestinal: soft, lax, Normal bowel sounds, Non tender Skin : Warm, Dry Extremities: LUE in cast, RLE with restricted ROM from pain Neurological : Alert & oriented x3, No focal deficit DS: Data Data Completed and Pending Labs on day of discharge: Laboratory Results - last 24 hr 11/05/22 05:31 Sodium 128 L Potassium 4.0 D Chloride 93 L Carbon Dioxide 28 Anion Gap 11 L BUN 8 L Creatinine 0.46 L Estim Creat Clear Calc 128.1 Estimated GFR > 60 Random Glucose 96 Calcium 8.6 Preliminary micro results at discharge 11/01/22 08:11 Blood Culture - Preliminary Blood - Venous No growth after 48 hours. 11/01/22 07:27 Blood Culture - Preliminary Blood - Venous No growth after 48 hours. Imaging Chest x-ray: Radiologist's impression: ITS Impressions Chest X-Ray 11/01/22 07:55 IMPRESSION: No evidence of acute pulmonary process. Left clavicular fracture, see clavicle x-ray report. Clavicle X-Ray 11/01/22 07:55 IMPRESSION: Comminuted displaced fracture of the mid/lateral aspect of clavicle, with apparent overriding of fracture fragments. Evaluation is limited in the provided views, by positioning/technique. Additional/repeat clavicle x-rays as clinically warranted. Lucency in the acromium, only visualized on one view, could be related to overlapping densities, with an undisplaced fracture cannot be excluded. Limited evaluation of the scapula/glenoid. Shoulder radiographs for further evaluation as clinically warranted. Calcifications/ossifications superior to the greater tuberosity, suggestive of calcific tendinitis/bursitis. Osteopenia limits evaluation. Hip X-Ray 11/01/22 07:55 IMPRESSION: Hardware stabilizing old healed right hip fracture. There is no hardware loosening or recurrent fracture seen. The joint space is maintained normal Cervical Spine CT 11/01/22 08:00 IMPRESSION: 1. No evidence of acute intracranial hemorrhage or edematous territorial infarction. Moderate underlying microangiopathy and generalized cerebral volume loss. 2. No evidence of acute fracture or traumatic subluxation of the cervical spine. Moderate multilevel degenerative spondyloarthropathy of the cervical spine. 3. Moderately displaced fracture of the mid left clavicular shaft. Head CT 11/01/22 08:00 IMPRESSION: 1. No evidence of acute intracranial hemorrhage or edematous territorial infarction. Moderate underlying microangiopathy and generalized cerebral volume loss. 2. No evidence of acute fracture or traumatic subluxation of the cervical spine. Moderate multilevel degenerative spondyloarthropathy of the cervical spine. 3. Moderately displaced fracture of the mid left clavicular shaft. Hip CT 11/02/22 16:45 IMPRESSION: Nondisplaced fractures involving superior and inferior pubic rami fractures. Old healed right hip fracture with hardware is intact. There is no recurrent fracture visualized on these images. There is mild degenerative changes Discharge Plan Discharge Anticipated Discharge Date/Time: 11/05/22 10:19 Patient Disposition: [facility] Discharge Diagnosis: Alcohol withdrawal Hyponatremia Referrals: [facility] [Outside] - 1 Week Antoni Bruce MD [Primary Care Provider] - 1 Week Discharge Medications: New nicotine 14 mg/24 hr Patch 24 Hour 14 mg transdermal DAILY Qty: 30 0RF thiamine HCl (vitamin B1) 100 mg tablet 100 mg PO DAILY Qty: 30 0RF amlodipine 5 mg Tablet 5 mg PO DAILY Qty: 30 0RF Protocol: Hold for SBP< HOLD for SBP < : 90 Continued acetaminophen [Tylenol] 325 mg Tablet 1,300 - 1,950 mg PO DAILY PRN (Reason: Pain) polyethylene glycol 3350 [Miralax] 17 gram/dose Powder 17 g PO DAILY PRN (Reason: Constipation) Discharge Orders: Discharge Order (Routine); Ordered 11/05/22 Ordered By: Khaled Abuhashmeh Diet: Advance to usual diet Activity on Discharge: As tolerated Stand Alone Forms: Patient Portal Discharge page Other Ambulatory Orders: Basic Metabolic Panel (Routine) Timeframe: 3 Days Facility: [facility] - Location: Laboratory Ordered By: Dafne Hernandez Care Plan Goals: Read below Health Concerns: Read below Plan of Treatment: Read below Assessment: You were admitted for alcohol withdrawal and fall. Found to have fracture of right hip with left clavicle fracture as you were evaluated by orthopedic team who recommended physical therapy. Treated for alcohol withdrawal with phenobarbital with good response. Noted to have low sodium level which is related to alcohol abuse, improved during thehospital stay with water restriction. Water restriction to 1.2L daily. Quit smoking Complete abstinence from Alcohol Thiamin supplement Continue physical therapy Outpatient follow up with dr Mcallister from Orthopedics in 1-2 weeks Repeat blood work as outpatient
[2022-11-05] MEDS: Enoxaparin Sodium 40 MG/0.4 ML SYRINGE SUBCUT (10:58)
[2022-11-05 11:38] VITALS: PULSE 104; RESP 20; O2SAT 93
[2022-11-06 10:16] LABS: Norfentanyl, Ur NEGATIVE
[2022-11-21 12:31] LABS: Fentanyl, Ur NEGATIVE
== END 2022-11-05 12:57 | disposition skilled nursing facility (03) | DRG 964 ==
LOC: HO.ED 08:58 → HO.EDOVER 11:30 → HO.S3 16:03
PROVIDERS: Admitting Provider Internal Medicine; Emergency Provider Emergency Medicine; PCP Internal Medicine; Visit Provider Student in an Organized Health Care Education/Training Program
DX: S32.511A Fracture of superior rim of right pubis, initial encounter for closed fracture (principal); E44.0 Moderate protein-calorie malnutrition; T79.6XXA Traumatic ischemia of muscle, initial encounter; E87.1 Hypo-osmolality and hyponatremia; F10.239 Alcohol dependence with withdrawal, unspecified; E87.21 Acute metabolic acidosis; Z68.1 Body mass index [BMI] 19.9 or less, adult; G62.1 Alcoholic polyneuropathy; F10.229 Alcohol dependence with intoxication, unspecified; S42.022A Displaced fracture of shaft of left clavicle, initial encounter for closed fracture; W19.XXXA Unspecified fall, initial encounter; K70.9 Alcoholic liver disease, unspecified; J44.9 Chronic obstructive pulmonary disease, unspecified; R09.02 Hypoxemia; Y90.2 Blood alcohol level of 40-59 mg/100 ml; F17.210 Nicotine dependence, cigarettes, uncomplicated; Z20.822 Contact with and (suspected) exposure to COVID-19; Z71.6 Tobacco abuse counseling; Z79.899 Other long term (current) drug therapy
CPT/HCPCS: 36415; 70450; 71045; 72125; 73000; 73502; 73700; 80048; 80076; 80307; 80354; 81001; 82550; 83605; 83690; 83735; 84484; 85025; 85610; 87040; 87635; 93005; 94640; 97162; 99285; J0456; J0696; J1650; J1885; J2560; J2930; J3411

== ENCOUNTER → 2022-11-01 08:48 | Outpatient (BNV) | payer OTHER, SELFPAY | PROVIDERS: Emergency Provider Emergency Medicine; Visit Provider Internal Medicine | DX: E87.1 Hypo-osmolality and hyponatremia (principal); S42.022A Displaced fracture of shaft of left clavicle, initial encounter for closed fracture; R29.898 Other symptoms and signs involving the musculoskeletal system; F10.939 Alcohol use, unspecified with withdrawal, unspecified; S32.599A Other specified fracture of unspecified pubis, initial encounter for closed fracture; J44.1 Chronic obstructive pulmonary disease with (acute) exacerbation | CPT/HCPCS: 99223; 99232; 99239 ==

== ENCOUNTER → 2022-11-01 11:23 | Outpatient (BNV) | payer OTHER, SELFPAY | PROVIDERS: Admitting Provider Internal Medicine; Emergency Provider Emergency Medicine; Visit Provider Orthopaedic Surgery | DX: S42.022A Displaced fracture of shaft of left clavicle, initial encounter for closed fracture (principal) | CPT/HCPCS: 99231 ==

== ENCOUNTER 2022-11-10 03:38 | Inpatient (IN) | payer OTHER, SELFPAY ==
[2022-11-10] VITALS (10 sets, daily range): BP systolic 129–197; BP diastolic 67–114; PULSE 97–130; RESP 17–18; TEMP 36.4–36.7; O2SAT 85–100; BMI 26.6
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
--- NOTE | ~2022-11-10 | XR_ITS ---
EXAMINATION: XR CHEST CLINICAL INFORMATION: Hypoxic COMPARISON: 11/01/2022 TECHNIQUE: Frontal view of the chest was obtained. FINDINGS: New mild interstitial pulmonary edema. Normal heart size and pulmonary vascularity. Aorta is atherosclerotic. Left basilar subsegmental atelectasis. No discrete consolidation. Acute comminuted left clavicular diaphyseal fracture redemonstrated. XR/XR chest 1V IMPRESSION: * New mild interstitial pulmonary edema. * Left basilar subsegmental atelectasis.
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
[2022-11-10] MEDS: Oxymetazoline HCl 0.05 % Nasal 15 ML SPRAY 2 SPRAY NOSTRIL-B (04:42)
[2022-11-10] MEDS: Lidocaine HCl 1 % 20 ML VIAL 15 ML INFILTRATI (06:19)
--- NOTE | 2022-11-10 06:44 | PC.NURSE ---
Dr Burnette at bedside placing sutures, nonrebreather was taken off for sutures. After a few minutes, pt O2 noted to be low, placed on 3 LPM O2 via NC. O2 increased to 95%. Pt A&Ox4, GCS 15. Pt is resting in bed at this time, waiting for labs and scans.
--- NOTE | 2022-11-10 07:00 | CA_ITS ---
Transthoracic Echocardiogram Patient (Last, First, Middle): Armin Lockhart, Gender: Male Date of : 1955 Age: 67 Procedure Date: 11/10/2022 Procedure Type: Transthoracic Echocardiogram Location: ER Height: 167.64 cm Weight: 74.84 kg BSA: 1.84 m2 Heart Rate: 102 bpm BP: 148 / 88 mmHg Adapted Physical Education Specialist: ISHA Referring MD: Heidi GHOSH Symptoms: new onset chf Study Quality: Adequate/Contrast ECG Rhythm: Tachycardia Conclusions: - Normal left ventricular size, thickness, systolic function, and wall motion. The visually estimated ejection fraction is between 55-60%. Diastolic function is normal for age. - Normal right ventricular cavity size and systolic function. Findings Procedure Information Contrast agent, definity, is being given per protocol without apparent complications. Left Ventricle Normal left ventricular size, thickness, systolic function, and wall motion. The visually estimated ejection fraction is between 55-60%. Diastolic function is normal for age. Right Ventricle Normal right ventricular cavity size and systolic function. Atria The left atrium is normal in size. The right atrium is normal in size. Aortic Valve The aortic valve structure and function is likely normal. There is no aortic valve stenosis. There is no aortic valve regurgitation. Mitral Valve Normal mitral valve structure and function. There is no mitral valve regurgitation. There is no mitral valve stenosis. Pulmonic Valve The pulmonic valve is likely normal. Tricuspid Valve Likely normal tricuspid valve structure and function. Tricuspid regurgitation envelope is inadequate for calculation of right ventricular systolic pressure. Normal right atrial pressure. Great Vessels All visible segments of the aorta are normal in size. Venous The inferior vena cava is normal in size and collapses greater than 50% with inspiration. Pericardium/Pleural There is no evidence of pericardial effusion. Prior Study Comparison No prior study available for comparison. Measurements 2D Linear Measurements IVSd: 1.00 0.6-0.9/0.6-1.0 cm LVIDd: 4.90 3.9-5.3/4.2-5.9 cm LVIDd Index: 2.66 2.4-3.2/2.2-3.1 cm/m2 LVIDs: 3.80 2.0-3.6 cm LVPWd: 1.10 0.7-1.1 cm LA Diam: 3.20 2.7-3.8/3.0-4.0 cm LAIDs Index: 1.74 1.5-2.3 cm/m2 LV Mass: 234.37 67-162/88-224 g LV Mass Index: 127.37 43-95/49-115 g/m2 LVOT Diam: 1.90 3.0+(-)1.3 cm 2D Systolic Function EF 4C: 57.20 >55% EF 2C: 49.40 >55% EF BiP: 53.70 >55% Mitral Valve MV Pk E: 0.57 MV PK A: 0.93 MV Decel Time: 225.00 E/A: 0.60 E'Lateral: 9.68 E'Medial: 8.70 E/E' Med: 6.60 E/E' Lat: 5.90 PHT: 66.00 MVA PHT: 3.33 Decel [place]: 2.53 Aortic Valve AoV Pk Saeed: 1.72 AoV Mn Saeed: 1.21 AoV VTI: 0.28 AoV Pk Grad: 12.00 Aov Mn Grad: 7.00 MAXIMO Cont.VTI: 1.54 LVOT LVOT Pk Saeed: 0.93 LVOT Mn Saeed: 0.67 LVOT VTI: 0.15 LVOT Pk Grad: 3.00 LVOT Mn Grad: 2.00 LVOT Diam: 1.90 LVOT Area: 2.84 Diastolic Function MV Pk E: 0.57 MV Pk A: 0.93 E/A: 0.60 E'Medial: 8.70 E/E' Med: 6.60 E' Laterial: 9.68 E/E' Lat: 5.90 Right Ventricle TAPSE (mm): 23.50 TVS' Saeed: 16.20 Tricuspid Valve RA Press: 3.00 Great Vessels Aorta Sinus of Valsalva: 3.60 2.0-3.5 cm Ao Asc: 3.70 2.1-3.4 cm Pulmonary Valve PV Pk Saeed: 0.88 Peak PV Grad: 3.00 Updated in Other Vendor System with Status of Final Alan Douglas MD electronically signed on 11/10/2022 4:40:17 PM with status of Final
[2022-11-10] MEDS: methylPREDNISolone Sod Succ 125 MG/2 ML VIAL IVPUSH (07:48)
[2022-11-10] MEDS: levoFLOXacin/D5W 500 MG/100 ML PIGGYBACK 100 MG IV (07:49)
[2022-11-10 07:57] LABS: INTERNATIONAL NORM RATIO 0.9 (0.9-1.1); Prothrombin Time 10.9 SEC (11.1-13.3)
[2022-11-10 08:01] LABS: VBG Base Excess 7.7 mmol/L; VBG HCO3 33 mmol/L (22-26); VBG pCO2 49 mmHg; VBG pH 7.43 (7.32-7.43); VBG pO2 48 mmHg
[2022-11-10 08:01] LABS: Venous Blood Gas Refer to POC result
[2022-11-10 08:03] LABS: Lactic Acid 1.4 mmol/L (0.5-2.0)
[2022-11-10 08:07] LABS: Alanine Aminotransferase 25 U/L (0-40); Albumin Level 3.5 g/dL (3.5-5.0); Alkaline Phosphatase 110 U/L (39-117); Anion Gap 11 (12-20); Aspartate Amino Transferase 20 U/L (5-37); Bilirubin Direct 0.2 mg/dL (0.0-0.5); Bilirubin Total 0.5 mg/dL (0.0-1.0); Blood Urea Nitrogen 10 mg/dL (9-16); Calcium 9.1 mg/dL (8.4-10.2); Carbon Dioxide 30 mmol/L (22-29); Chloride 95 mmol/L (96-108); Creatinine Clr Calc Pharmacy 135.6; Estimated Glomerular Filt Rate > 60; Glucose Random 93 mg/dL (60-115); Potassium 4.8 mmol/L (3.3-5.1); Sodium 131 mmol/L (135-145); Total Protein 6.3 g/dL (6.5-8.0)
[2022-11-10 08:14] LABS: B Type Natriuretic Peptide 385 pg/mL (<100)
[2022-11-10 08:18] LABS: COVID-19 Test Negative (Negative); IDNOW Serial# BCCEAD1C
[2022-11-10] MEDS: Albuterol Sulfate 2.5 MG, Albuterol/Iprat 2.5/0.5MG 3 ML 3 ML INHALE (08:19)
--- NOTE | 2022-11-10 08:56 | ECG_ITS ---
Test Reason : sob Blood Pressure : / mmHG Vent. Rate : 111 BPM Atrial Rate : 111 BPM P-R Int : 152 ms QRS Dur : 076 ms QT Int : 342 ms P-R-T Axes : 065 018 092 degrees QTc Int : 465 ms Sinus tachycardia Minimal voltage criteria for LVH, may be normal variant ( Sokolow-Mitchell ) Nonspecific T wave abnormality Abnormal ECG When compared with ECG of 01-NOV-2022 07:59, Nonspecific T wave abnormality has replaced inverted T waves in Lateral leads Referred By: Jf Munoz Electronically Signed By:CHEYENNE JEREZ
[2022-11-10 09:15] LABS: Basophils Percent Auto 0.2 % (0-2); Eosinophils Percent Auto 0.1 % (0-4); Hematocrit 25.2 % (42.0-52.0); Hemoglobin 8.5 g/dl (14.0-18.0); Imm Gran Abs Auto 0.05 X10*3/uL (0.00-0.03); Imm Gran Pct Auto 0.6 % (0.0-0.4); Lymphocytes Absolute Auto 0.5 X10*3/uL (1.2-4.9); Lymphocytes Percent Auto 5.7 % (20-40); Mean Corpuscular HGB Conc 33.7 g/dl (31.0-36.0); Mean Corpuscular Hemoglobin 35.3 pg (27.0-33.0); Mean Corpuscular Volume 104.6 fL (80.0-98.0); Mean Platelet Volume 7.9 fL (9.4-12.4); Monocytes Absolute Auto 0.6 X10*3/uL (0.1-1.2); Monocytes Percent Auto 7.4 % (2-11); Platelet Count 343 X10*3/uL (160-400); Red Blood Count 2.41 X10*6/uL (4.60-5.80); Red Cell Distribution Width 12.4 % (11.0-16.0)
[2022-11-10 09:27] LABS: MANUAL DIFF FLAG NO; White Blood Count 8.1 X10*3/uL (4.8-10.8)
[2022-11-10 09:43] LABS: Troponin-I High Sensitivity 14.3 ng/L (<3.5-35.0)
[2022-11-10] MEDS: Furosemide 20 MG/2 ML VIAL IVPUSH (10:24)
--- NOTE | 2022-11-10 10:47 | PHA.MEDREC ---
Pharmacy Consult ? Medication Reconciliation Pharmacy has completed the medication reconciliation. Used list from [facility]
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
[2022-11-10] MEDS: Acetaminophen 325 MG TABLET 650 MG PO ×2 (13:42→21:26)
[2022-11-10] MEDS: guaiFENesin 200 MG/10 ML 10 ML LIQUID PO ×2 (13:42→21:27)
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
[2022-11-10] MEDS: oxyCODONE HCl Immed Release 5 MG TABLET PO (18:49)
[2022-11-10] MEDS: Sodium Chloride Tab 1 GM TABLET PO (18:49)
[2022-11-10] MEDS: Tamsulosin HCL 0.4 MG CAPSULE PO (18:49)
[2022-11-10] MEDS: methylPREDNISolone Sod Succ 40 MG/ML VIAL IVPUSH (18:50)
[2022-11-10] MEDS: 0.9 % Sodium Chloride Flush 3 ML SYRINGE IVFLUSH (21:20)
[2022-11-11] VITALS (8 sets, daily range): BP systolic 149–165; BP diastolic 80–84; PULSE 86–99; RESP 16–20; TEMP 36–36.4; O2SAT 91–97
[2022-11-11] MEDS: Acetaminophen 325 MG TABLET 650 MG PO ×2 (06:25→19:36)
[2022-11-11] MEDS: guaiFENesin 200 MG/10 ML 10 ML LIQUID PO (06:26)
[2022-11-11 07:07] LABS: MANUAL DIFF FLAG NO
[2022-11-11 07:09] LABS: Basophils Percent Auto 0.3 % (0-2); Eosinophils Percent Auto 0.3 % (0-4); Hematocrit 25.6 % (42.0-52.0); Hemoglobin 8.7 g/dl (14.0-18.0); Imm Gran Abs Auto 0.06 X10*3/uL (0.00-0.03); Imm Gran Pct Auto 0.8 % (0.0-0.4); Lymphocytes Absolute Auto 1.3 X10*3/uL (1.2-4.9); Lymphocytes Percent Auto 16.4 % (20-40); Mean Corpuscular Hemoglobin 35.5 pg (27.0-33.0); Mean Corpuscular Volume 104.5 fL (80.0-98.0); Mean Platelet Volume 8.1 fL (9.4-12.4); Monocytes Percent Auto 12.2 % (2-11); Neutrophils Absolute Auto 5.6 x10*3/uL (2.0-8.3); Platelet Count 383 X10*3/uL (160-400); Red Blood Count 2.45 X10*6/uL (4.60-5.80); Red Cell Distribution Width 12.7 % (11.0-16.0); White Blood Count 7.9 X10*3/uL (4.8-10.8)
[2022-11-11 07:28] LABS: Anion Gap 11 (12-20); Blood Urea Nitrogen 11 mg/dL (9-16); Carbon Dioxide 31 mmol/L (22-29); Chloride 92 mmol/L (96-108); Creatinine Clr Calc Pharmacy 114.5; Estimated Glomerular Filt Rate > 60; Glucose Random 86 mg/dL (60-115); Potassium 4.5 mmol/L (3.3-5.1); Sodium 129 mmol/L (135-145)
[2022-11-11 07:48] LABS: Iron 41 mcg/dL (45-160); Percent Iron Saturation 19 % (15-50); Total Iron Binding Capacity 217 mcg/dL (228-428); Unsaturated Iron Binding 176 ug/dL
[2022-11-11] MEDS: Albuterol/Iprat 2.5/0.5MG 3 ML AMPUL.NEB INHALE ×2 (08:26→12:04)
[2022-11-11] MEDS: methylPREDNISolone Sod Succ 40 MG/ML VIAL IVPUSH ×2 (08:29→19:37)
[2022-11-11] MEDS: Nicotine 14 MG PATCH.TD24 TRANSDERMA (08:32)
[2022-11-11] MEDS: amLODIPine Besylate 5 MG TABLET PO (08:33)
[2022-11-11] MEDS: Sodium Chloride Tab 1 GM TABLET PO ×2 (08:33→19:37)
[2022-11-11] MEDS: 0.9 % Sodium Chloride Flush 3 ML SYRINGE IVFLUSH ×2 (08:33→19:37)
[2022-11-11] MEDS: Cyanocobalamin (Vitamin B-12) 1,000 MCG TABLET 1000 MCG PO (08:33)
[2022-11-11] MEDS: Multivitamin TABLET 1 TAB PO (08:33)
[2022-11-11] MEDS: Thiamine HCL 100 MG TABLET PO (08:33)
[2022-11-11] MEDS: Folic Acid 1 MG TABLET PO (08:33)
--- NOTE | 2022-11-11 11:03 | MHC.CM.PN ---
pt from [facility] where he will return when dcd
[2022-11-11 14:14] LABS: Creatinine Urine 123.15 mg/dL
[2022-11-11] MEDS: Albuterol Sulfate 90 MCG 8 GM INHALER 2 PUFF INHALE ×2 (15:25→19:44)
[2022-11-11 16:09] LABS: MANUAL DIFF FLAG NO
[2022-11-11 16:10] LABS: Basophils Percent Auto 0.1 % (0-2); Eosinophils Percent Auto 0.1 % (0-4); Hemoglobin 8.6 g/dl (14.0-18.0); Imm Gran Abs Auto 0.05 X10*3/uL (0.00-0.03); Imm Gran Pct Auto 0.5 % (0.0-0.4); Lymphocytes Absolute Auto 0.5 X10*3/uL (1.2-4.9); Lymphocytes Percent Auto 5.3 % (20-40); Mean Corpuscular HGB Conc 34.4 g/dl (31.0-36.0); Mean Corpuscular Volume 104.6 fL (80.0-98.0); Mean Platelet Volume 7.9 fL (9.4-12.4); Monocytes Absolute Auto 0.6 X10*3/uL (0.1-1.2); Monocytes Percent Auto 6.6 % (2-11); Neutrophils Percent Auto 87.4 % (45-73); Platelet Count 351 X10*3/uL (160-400); Red Blood Count 2.39 X10*6/uL (4.60-5.80); Red Cell Distribution Width 12.4 % (11.0-16.0); White Blood Count 9.1 X10*3/uL (4.8-10.8)
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
[2022-11-11] MEDS: 0.9 % Sodium Chloride 1,000 ML 100 ML IVCONT (17:56)
[2022-11-11] MEDS: Tamsulosin HCL 0.4 MG CAPSULE PO (19:36)
[2022-11-12] VITALS (8 sets, daily range): BP systolic 106–159; BP diastolic 54–87; PULSE 86–102; RESP 14–20; TEMP 36.1–37; O2SAT 93–97
[2022-11-12] MEDS: Acetaminophen 325 MG TABLET 650 MG PO ×2 (05:49→19:30)
[2022-11-12 07:17] LABS: Hematocrit 25.9 % (42.0-52.0); Hemoglobin 8.8 g/dl (14.0-18.0); Mean Corpuscular Hemoglobin 35.2 pg (27.0-33.0); Mean Corpuscular Volume 103.6 fL (80.0-98.0); Mean Platelet Volume 8.2 fL (9.4-12.4); Platelet Count 406 X10*3/uL (160-400); Red Cell Distribution Width 12.4 % (11.0-16.0); White Blood Count 8.6 X10*3/uL (4.8-10.8)
[2022-11-12 07:22] LABS: Anion Gap 13 (12-20); Blood Urea Nitrogen 9 mg/dL (9-16); Calcium 8.8 mg/dL (8.4-10.2); Carbon Dioxide 26 mmol/L (22-29); Chloride 93 mmol/L (96-108); Creatinine Clr Calc Pharmacy 130.3; Estimated Glomerular Filt Rate > 60; Glucose Random 95 mg/dL (60-115); Potassium 4.3 mmol/L (3.3-5.1); Sodium 128 mmol/L (135-145)
[2022-11-12 07:36] LABS: B Type Natriuretic Peptide 358 pg/mL (<100)
[2022-11-12] MEDS: Folic Acid 1 MG TABLET PO (07:43)
[2022-11-12] MEDS: Sodium Chloride Tab 1 GM TABLET PO ×2 (07:43→19:30)
[2022-11-12] MEDS: methylPREDNISolone Sod Succ 40 MG/ML VIAL IVPUSH (07:43)
[2022-11-12] MEDS: Multivitamin TABLET 1 TAB PO (07:44)
[2022-11-12] MEDS: Thiamine HCL 100 MG TABLET PO (07:44)
[2022-11-12] MEDS: Nicotine 14 MG PATCH.TD24 TRANSDERMA (07:44)
[2022-11-12] MEDS: Cyanocobalamin (Vitamin B-12) 1,000 MCG TABLET 1000 MCG PO (07:44)
[2022-11-12] MEDS: amLODIPine Besylate 5 MG TABLET PO (07:44)
[2022-11-12] MEDS: 0.9 % Sodium Chloride Flush 3 ML SYRINGE IVFLUSH ×3 (07:49→19:31)
[2022-11-12 08:02] LABS: Folate 8.4 ng/mL (> or = 4.0); Vitamin B12 580 pg/mL (200-900)
[2022-11-12] MEDS: Fluticasone/Vilanterol 100/25 BLST.W.DEV 1 PUFF INHALE (08:06)
[2022-11-12] MEDS: Albuterol Sulfate 90 MCG 8 GM INHALER 2 PUFF INHALE ×4 (08:06→19:42)
[2022-11-12] MEDS: guaiFENesin 200 MG/10 ML 10 ML LIQUID PO (08:41)
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
--- NOTE | 2022-11-12 15:53 | MHC.CM.PN ---
OF THIS NOTE, [facility] DOES NOT HAVE AUTH TO ADMIT. HOSPITALIST MADE AWARE. PLAN FOR LIKELY Thursday11/13/22 DC TO [facility].
[2022-11-12] MEDS: Tamsulosin HCL 0.4 MG CAPSULE PO (19:30)
[2022-11-13] VITALS (8 sets, daily range): BP systolic 126–170; BP diastolic 69–90; PULSE 81–107; RESP 16–20; TEMP 36–36.9; O2SAT 91–96
[2022-11-13] MEDS: Acetaminophen 325 MG TABLET 650 MG PO ×2 (03:33→15:20)
[2022-11-13] MEDS: guaiFENesin 200 MG/10 ML 10 ML LIQUID PO ×3 (03:33→20:51)
[2022-11-13 06:08] LABS: Anion Gap 12 (12-20); Blood Urea Nitrogen 8 mg/dL (9-16); Calcium 9.2 mg/dL (8.4-10.2); Carbon Dioxide 26 mmol/L (22-29); Chloride 92 mmol/L (96-108); Creatinine Clr Calc Pharmacy 125.3; Estimated Glomerular Filt Rate > 60; Glucose Random 84 mg/dL (60-115); Potassium 4.7 mmol/L (3.3-5.1); Sodium 125 mmol/L (135-145)
[2022-11-13] MEDS: Albuterol Sulfate 90 MCG 8 GM INHALER 2 PUFF INHALE ×4 (07:45→19:38)
[2022-11-13] MEDS: Fluticasone/Vilanterol 100/25 BLST.W.DEV 1 PUFF INHALE (07:47)
[2022-11-13] MEDS: Nicotine 14 MG PATCH.TD24 TRANSDERMA (07:53)
[2022-11-13] MEDS: Sodium Chloride Tab 1 GM TABLET PO ×2 (07:53→20:02)
[2022-11-13] MEDS: Thiamine HCL 100 MG TABLET PO (07:53)
[2022-11-13] MEDS: Multivitamin TABLET 1 TAB PO (07:53)
[2022-11-13] MEDS: Cyanocobalamin (Vitamin B-12) 1,000 MCG TABLET 1000 MCG PO (07:54)
[2022-11-13] MEDS: predniSONE 20 MG TABLET PO (07:54)
[2022-11-13] MEDS: amLODIPine Besylate 5 MG TABLET PO (07:54)
[2022-11-13] MEDS: 0.9 % Sodium Chloride Flush 3 ML SYRINGE IVFLUSH ×3 (07:54→20:03)
[2022-11-13] MEDS: Folic Acid 1 MG TABLET PO (07:54)
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
[2022-11-13] MEDS: Urea 15 GM POWDER 30 GM PO ×2 (14:09→20:02)
[2022-11-13 14:55] LABS: Osmolality, Serum 267 mosm/kg (281-305)
[2022-11-13 14:56] LABS: Anion Gap 14 (12-20); Carbon Dioxide 28 mmol/L (22-29); Chloride 89 mmol/L (96-108); Potassium 4.6 mmol/L (3.3-5.1); Sodium 126 mmol/L (135-145)
[2022-11-13 19:41] LABS: Anion Gap 15 (12-20); Carbon Dioxide 23 mmol/L (22-29); Chloride 91 mmol/L (96-108); Potassium 3.7 mmol/L (3.3-5.1); Sodium 125 mmol/L (135-145)
[2022-11-13] MEDS: Tamsulosin HCL 0.4 MG CAPSULE PO (20:02)
[2022-11-13 22:07] LABS: Anion Gap 15 (12-20); Carbon Dioxide 25 mmol/L (22-29); Chloride 89 mmol/L (96-108); Potassium 4.3 mmol/L (3.3-5.1); Sodium 125 mmol/L (135-145)
[2022-11-14 02:23] LABS: Anion Gap 17 (12-20); Carbon Dioxide 25 mmol/L (22-29); Chloride 92 mmol/L (96-108); Potassium 4.7 mmol/L (3.3-5.1); Sodium 129 mmol/L (135-145)
[2022-11-14 02:35] VITALS: BP 128/79; PULSE 104; RESP 18; TEMP 36.7; O2SAT 93
[2022-11-14] MEDS: guaiFENesin 200 MG/10 ML 10 ML LIQUID PO (02:55)
[2022-11-14 06:35] LABS: Anion Gap 16 (12-20); Carbon Dioxide 25 mmol/L (22-29); Chloride 92 mmol/L (96-108); Potassium 4.5 mmol/L (3.3-5.1); Sodium 128 mmol/L (135-145)
[2022-11-14 07:00] VITALS: BP 146/70; PULSE 97; RESP 18; TEMP 37.6; O2SAT 94
[2022-11-14] MEDS: Fluticasone/Vilanterol 100/25 BLST.W.DEV 1 PUFF INHALE (07:50)
[2022-11-14] MEDS: Albuterol Sulfate 90 MCG 8 GM INHALER 2 PUFF INHALE ×2 (07:51→12:04)
[2022-11-14 07:55] VITALS: PULSE 95; RESP 18; O2SAT 94
[2022-11-14] MEDS: 0.9 % Sodium Chloride Flush 3 ML SYRINGE IVFLUSH (09:34)
[2022-11-14] MEDS: amLODIPine Besylate 5 MG TABLET PO (09:35)
[2022-11-14] MEDS: Folic Acid 1 MG TABLET PO (09:36)
[2022-11-14] MEDS: Nicotine 14 MG PATCH.TD24 TRANSDERMA (09:36)
[2022-11-14] MEDS: predniSONE 10 MG TABLET PO (09:36)
[2022-11-14] MEDS: Cyanocobalamin (Vitamin B-12) 1,000 MCG TABLET 1000 MCG PO (09:36)
[2022-11-14] MEDS: Thiamine HCL 100 MG TABLET PO (09:36)
[2022-11-14] MEDS: Multivitamin TABLET 1 TAB PO (09:36)
[2022-11-14] MEDS: Sodium Chloride Tab 1 GM TABLET PO (09:36)
[2022-11-14] MEDS: Urea 15 GM POWDER 30 GM PO (09:37)
[2022-11-14 10:55] LABS: Anion Gap 15 (12-20); Carbon Dioxide 24 mmol/L (22-29); Chloride 92 mmol/L (96-108); Potassium 3.7 mmol/L (3.3-5.1); Sodium 127 mmol/L (135-145)
[2022-11-14 11:36] VITALS: PULSE 95
[2022-11-14] MEDS: Lidocaine 4 % Patch ADH..PATCH 1 PATCH TRANSDERMA (12:01)
[2022-11-14 12:07] VITALS: PULSE 89; RESP 18; O2SAT 95
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
[2022-11-14 14:23] LABS: Anion Gap 14 (12-20); Carbon Dioxide 24 mmol/L (22-29); Chloride 94 mmol/L (96-108); Potassium 4.4 mmol/L (3.3-5.1); Sodium 128 mmol/L (135-145)
== END 2022-11-14 15:00 | DRG 190 ==
LOC: HO.ED 09:59 → HO.EDOVER 12:40 → HO.S3 16:31
PROVIDERS: Emergency Medicine; Hospitalist; Admitting Provider Physician Assistant; Emergency Provider Emergency Medicine; PCP Emergency Medicine; Visit Provider Hospitalist
DX: J44.1 Chronic obstructive pulmonary disease with (acute) exacerbation (principal); J96.01 Acute respiratory failure with hypoxia; E87.1 Hypo-osmolality and hyponatremia; S01.511A Laceration without foreign body of lip, initial encounter; S02.2XXA Fracture of nasal bones, initial encounter for closed fracture; D53.9 Nutritional anemia, unspecified; F10.21 Alcohol dependence, in remission; N40.0 Benign prostatic hyperplasia without lower urinary tract symptoms; Y00.XXXA Assault by blunt object, initial encounter; Y92.129 Unspecified place in nursing home as the place of occurrence of the external cause; Z20.822 Contact with and (suspected) exposure to COVID-19; Z87.891 Personal history of nicotine dependence; Z79.899 Other long term (current) drug therapy
CPT/HCPCS: 36415; 70450; 70486; 71045; 72125; 80048; 80051; 80076; 82607; 82746; 82803; 83540; 83605; 83880; 83930; 84300; 84484; 85025; 85027; 85610; 87040; 87635; 93005; 93306; 94640; 97116; 97162; 97530; 99221; 99285; J1940; J1956; J2920; J2930; Q9957

== ENCOUNTER → 2022-11-10 12:13 | Outpatient (BNV) | payer OTHER, SELFPAY | PROVIDERS: Admitting Provider Physician Assistant; Emergency Provider Emergency Medicine; Visit Provider Physician Assistant | DX: I50.9 Heart failure, unspecified (principal); J44.1 Chronic obstructive pulmonary disease with (acute) exacerbation; E87.1 Hypo-osmolality and hyponatremia; S02.2XXA Fracture of nasal bones, initial encounter for closed fracture | CPT/HCPCS: 99223; 99233; 99239 ==

== ENCOUNTER → 2022-11-10 12:13 | Outpatient (BNV) | payer OTHER, SELFPAY | PROVIDERS: Admitting Provider Physician Assistant; Emergency Provider Emergency Medicine; Visit Provider Internal Medicine Cardiovascular Disease | DX: I50.9 Heart failure, unspecified (principal); D64.9 Anemia, unspecified | CPT/HCPCS: 93306; 99222 ==

== ENCOUNTER 2022-12-02 10:47 | Outpatient (AMB) | payer OTHER, SELFPAY ==
--- NOTE | 2022-12-02 10:48 | A.OFFVIS_ITS ---
Intake Intake Visit Reasons: New Pt - right hip pain, DOI 11/01/22 Intake Note: Armin is a 67 year old male who presents today as a new patient for a evaluation of his right hip pain, DOI 11/01/22. Patient reports he fell down while stepping out on the curb. He states that his pain is not as bad today, he has a lidocaine patch which is giving him releif. Allergies No Known Allergies Allergy (Verified 12/02/22 11:05) HPI New Pt - right hip pain, DOI 11/01/22 HPI Details 67-year-old male who presents in the off ice today, as a new patient, for an evaluation of right hip pain. The patient presented to the ED on 11/01/2022 status post 2 falls in a week due to right lower extremity numbness and weakness, which began on 10/30/2022. He reported to the ED that he was attempting to go to the bathroom when his right leg was not working right and he fell injuring his left shoulder. He stated his right hip was sore when he walked on it after the fall. He was placed in a sling and admitted to the hospital until 11/05/2022. The patient reports in the office today that he fell on 11/01/2022 while stepping off the curb. He claims his pain is not as bad while in the office today. He confirms the use of a lidocaine patch which is giving him relief. Patient has a daily history of ETOH; 3-5 beers daily. [facility] Medical History (Updated 12/02/22 @ 13:03 by Tiffany Gutierrez) Anemia BPH (benign prostatic hyperplasia) COPD (chronic obstructive pulmonary disease) Alcohol dependence in early full remission Fractured nose Hyponatremia Hip fracture Acute hyponatremia Right leg weakness Clavicle fracture Esophagitis Acute hypokalemia Adult failure to thrive Family History Mother Lung cancer Sister Lung cancer Social History Household Members: Spouse Housing: Apartment Do you presently have visiting nurse or other home services: No Alcohol intake: former Patient Tobacco Use Status: Former Tobacco user Quit Date: 3 weeks ago Tobacco use type: Cigarette Cigarette Packs Per Day: 1 Cigarettes Per Day: 20.0 service: No Current occupational status: employed Review of Systems Const All systems reviewed & are unremarkable except as noted in HPI and below Physical Exam Const General: cooperative and no acute distress Orientation/consciousness: patient oriented x3 Resp Effort & Inspection: normal respiratory effort and able to speak in complete sentences Cardio Peripheral pulses: Peripheral pulses 2+ throughout Skin General skin exam: no rashes or lesions noted Neuro General: patient oriented x3 Extrem Other: Right lower extremity: No pain with log roll. Able to preform flexion and extension with mild pain. NVI. Right shoulder: Forward flexion and abduction to 90 degrees. NVI. Left upper extremity: Forward flexion to 90 degrees. Abduction to 80 degrees. Pain with cross-body reach. NVI. Assessment & Plan Assessment & Plan (1) Pubic ramus fracture: Code(s): S32.599A - Other specified fracture of unspecified pubis, initial encounter for closed fracture Qualifiers: Encounter type: initial encounter Fracture type: closed Laterality: right Qualified Code(s): S32.591A - Other specified fracture of right pubis, initial encounter for closed fracture (2) Fracture of left clavicle: Code(s): S42.002A - Fracture of unspecified part of left clavicle, initial encounter for closed fracture Qualifiers: Clavicle location: unspecified part of clavicle Encounter type: initial encounter Fracture alignment: nondisplaced Fracture type: closed Qualified Code(s): S42.002A - Fracture of unspecified part of left clavicle, initial encounter for closed fracture Plan Mr. Lockhart is a 67-year-old male who presents in the office today, as a new patient, for an evaluation of right hip pain. The patient presented to the ED on 11/01/2022 status post 2 falls in a week due to right lower extremity numbness and weakness, which began on 10/30/2022. He reported to the ED that he was attempting to go to the bathroom when his right leg was not working right and he fell injuring his left shoulder. He stated his right hip was sore when he walked on it after the fall. He was placed in a sling and admitted to the hospital until 11/05/2022. The patient reports in the office today that he fell on 11/01/2022 while stepping off the curb. He claims his pain is not as bad while in the office today. He confirms the use of a lidocaine patch which is giving him relief. Patient has a daily history of ETOH; 3-5 beers daily. Right lower extremity: He may weight bear as tolerated. Left upper extremity: He may continue to wear the sling for pain and comfort. He was instructed no over head reaching or lifting. I advised against pushing or pulling. He is currently in a rehab facility. I would recommend rehab gentle ROM for left upper extremity. However he is being discharged tomorrow. Follow up will be in 4-6 weeks with repeat x-rays, or sooner if needed. X-rays of the right shoulder obtained while in the office today and were reviewed by Abida carranza PA-C, revealed no acute fracture or dislocation. X-rays of the left shoulder obtained while in the office today and were reviewed by Abida carranza PA-C, revealed mid-shaft clavicle fracture. X-rays of the right hip obtained while in the office today and were reviewed by Abida carranza PA-C, revealed superior and inferior pubic rami fracture. CT of the right hip, obtained on 11/02/2022, revealed: 1. Nondisplaced fractures involving superior and inferior pubic rami fractures. 2. Old healed right hip fracture with hardware is intact. There is no recurrent fracture visualized on these images. 3. There is mild degenerative changes X-rays of the right hip, obtained on 11/01/2022, revealed: Hardware stabilizing old healed right hip fracture. There is no hardware loosening or recurrent fracture seen. The joint space is maintained normal X-rays of the left clavicle, obtained on 11/01/2022, revealed: 1. Comminuted displaced fracture of the mid/lateral aspect of clavicle, with apparent overriding of fracture fragments. Evaluation is limited in the provided views, by positioning/technique. Additional/repeat clavicle x-rays as clinically warranted. 2. Lucency in the acromium, only visualized on one view, could be related to overlapping densities, with an undisplaced fracture cannot be excluded. Limited evaluation of the scapula/glenoid. Shoulder radiographs for further evaluation as clinically warranted. 3. Calcifications/ossifications superior to the greater tuberosity, suggestive of calcific tendinitis/bursitis. 4. Osteopenia limits evaluation. Orders: Orders XR hip RT w PEL1V Today M25.559 - Pain in unspecified hip XR shoulder RT min 2V Today M25.519 - Pain in unspecified shoulder XR shoulder LT min 2V Today M25.519 - Pain in unspecified shoulder XR shoulder RT min 2V Today M25.519 - Pain in unspecified shoulder Patient Instructions: Scribed for Abida Max PA-C by Tiffany Gutierrez medical surgical tech, on 12/02/2022 at 10:59 am, EST. Coding Level of Care Code New Pt Level 4 (41193) Diagnoses Closed fracture of ramus of right pubis, initial encounter S32.591A Encounter type: initial encounter Fracture type: closed Laterality: right Closed nondisplaced fracture of left clavicle, unspecified part of clavicle, initial encounter S42.002A Clavicle location: unspecified part of clavicle Encounter type: initial encounter Fracture alignment: nondisplaced Fracture type: closed
== END 2022-12-02 12:04 | disposition home or self-care (01) ==
PROVIDERS: PCP Internal Medicine; Visit Provider Physician Assistant
DX: S32.591A Other specified fracture of right pubis, initial encounter for closed fracture (principal); S42.002A Fracture of unspecified part of left clavicle, initial encounter for closed fracture
CPT/HCPCS: 99204

== ENCOUNTER 2022-12-02 11:05 | Outpatient (REF) | payer OTHER, SELFPAY ==
--- NOTE | ~2022-12-02 | XR_ITS ---
EXAMINATION: XR SHOULDER, RIGHT XR SHOULDER, LEFT XR HIP RIGHT WITH PELVIS CLINICAL INFORMATION: Pain. COMPARISON: Left clavicle 11/01/2022. TECHNIQUE: AP view of the pelvis as well as AP and lateral views of the right hip. Single AP view of the right shoulder. AP and axial views of the left shoulder. FINDINGS: RIGHT SHOULDER: Single AP view of the right shoulder demonstrates diffuse demineralization. Moderate degenerative changes in the right acromioclavicular joint. Atherosclerotic calcifications in the aortic knob. Evaluation limited as only a single view was provided and visualization limited due to overlying structures. LEFT SHOULDER: 2 views of the left shoulder demonstrate diffuse demineralization. Redemonstration of a comminuted fracture of the mid to lateral aspect of the left clavicle with bony displacement and apparent overriding of fracture fragments. Left glenohumeral alignment preserved on 2 views provided. Redemonstration of multiple calcifications/ossifications along the superolateral aspect of the humeral head. Evaluation limited as only 2 views were provided and visualization limited due to overlying structures. RIGHT HIP AND AP PELVIS: The bones are diffusely demineralized. Intramedullary femoral john and 2 screws redemonstrated transfixing old healed right hip fracture. Hardware appears intact. Degenerative changes in the bilateral hips with moderate joint space narrowing. XR/XR hip RT w PEL1V IMPRESSION: 1. Moderate degenerative changes in the right acromioclavicular joint. Evaluation limited as only a single view was provided and visualization limited due to overlying structures. 2. Redemonstration of a comminuted fracture of the mid to lateral aspect of the left clavicle. Evaluation limited as only 2 views were provided and visualization limited due to overlying structures. 3. Intramedullary femoral john and 2 screws redemonstrated transfixing old healed right hip fracture. Hardware appears intact. 4. Severe diffuse bony demineralization. Additional imaging with CT scan or MRI should be considered for better visualization as these modalities are much more sensitive for detection of fracture or other underlying pathology.
--- NOTE | ~2022-12-02 | XR_ITS ---
EXAMINATION: XR SHOULDER, RIGHT XR SHOULDER, LEFT XR HIP RIGHT WITH PELVIS CLINICAL INFORMATION: Pain. COMPARISON: Left clavicle 11/01/2022. TECHNIQUE: AP view of the pelvis as well as AP and lateral views of the right hip. Single AP view of the right shoulder. AP and axial views of the left shoulder. FINDINGS: RIGHT SHOULDER: Single AP view of the right shoulder demonstrates diffuse demineralization. Moderate degenerative changes in the right acromioclavicular joint. Atherosclerotic calcifications in the aortic knob. Evaluation limited as only a single view was provided and visualization limited due to overlying structures. LEFT SHOULDER: 2 views of the left shoulder demonstrate diffuse demineralization. Redemonstration of a comminuted fracture of the mid to lateral aspect of the left clavicle with bony displacement and apparent overriding of fracture fragments. Left glenohumeral alignment preserved on 2 views provided. Redemonstration of multiple calcifications/ossifications along the superolateral aspect of the humeral head. Evaluation limited as only 2 views were provided and visualization limited due to overlying structures. RIGHT HIP AND AP PELVIS: The bones are diffusely demineralized. Intramedullary femoral john and 2 screws redemonstrated transfixing old healed right hip fracture. Hardware appears intact. Degenerative changes in the bilateral hips with moderate joint space narrowing. XR/XR shoulder RT min 2V IMPRESSION: 1. Moderate degenerative changes in the right acromioclavicular joint. Evaluation limited as only a single view was provided and visualization limited due to overlying structures. 2. Redemonstration of a comminuted fracture of the mid to lateral aspect of the left clavicle. Evaluation limited as only 2 views were provided and visualization limited due to overlying structures. 3. Intramedullary femoral john and 2 screws redemonstrated transfixing old healed right hip fracture. Hardware appears intact. 4. Severe diffuse bony demineralization. Additional imaging with CT scan or MRI should be considered for better visualization as these modalities are much more sensitive for detection of fracture or other underlying pathology.
== END 2022-12-02 11:06 | disposition home or self-care (01) ==
LOC: HO.HOSX 11:05
PROVIDERS: Visit Provider Physician Assistant
DX: S32.591A Other specified fracture of right pubis, initial encounter for closed fracture (principal); S42.002A Fracture of unspecified part of left clavicle, initial encounter for closed fracture; M25.511 Pain in right shoulder
CPT/HCPCS: 73030; 73502

== ENCOUNTER 2023-01-13 11:09 | Outpatient (REF) | payer OTHER, SELFPAY | END 2023-01-13 11:10 | disposition home or self-care (01) | LOC: HO.HOSX 11:09 | PROVIDERS: Visit Provider Physician Assistant | DX: Z13.89 Encounter for screening for other disorder (principal) ==

== ENCOUNTER 2023-01-22 07:34 | Emergency (ER) | payer OTHER, SELFPAY ==
--- NOTE | ~2023-01-22 | XR_ITS ---
EXAMINATION: XR WRIST, RIGHT XR HAND, RIGHT CLINICAL INFORMATION: Right wrist pain COMPARISON: None available. TECHNIQUE: PA, lateral, and oblique views of the right wrist along with a scaphoid view and PA, lateral, and oblique views of the right hand FINDINGS: Arthritic changes are present at the PIP joints most prominent in the second and third digits with some periarticular erosions laterally. Mild arthritic changes are also seen at the MCP joints of the second digit. Mild degenerative changes are seen at the first CMC joint and at the radiocarpal joint. No fractures or dislocations. XR/XR hand wrist RT IMPRESSION: Arthritic changes as described above. These are most likely secondary to osteoarthritis but gout would be a consideration given the periarticular location of some of the erosions. No evidence of an acute injury.
[2023-01-22 07:48] VITALS: BP 186/110; PULSE 94; RESP 18; TEMP 35.8; O2SAT 97; BMI 18.6
--- NOTE | 2023-01-22 07:55 | ED_ITS ---
HPI - Animal Bite General Chief Complaint: Animal Bite Stated Complaint: Animal bite - swelling in right hand/arm Time Seen by Provider: 01/22/23 07:41 Source: patient Mode of arrival: ambulatory Limitations: no limitations History of Present Illness HPI narrative: 67-year-old male presents with right wrist, hand and forearm swelling status post being bitten scratched by his significant other's cat on Thursday. Has noticed that the areas where the cat bit/scratch are red, swollen. Patient reporting significant right wrist pain, worse with movement better at rest. Denies fevers, chills, numbness, tingling chest pain, shortness of breath, nausea, vomiting, diarrhea. Related Data Home Medications Medication Instructions Recorded Confirmed acetaminophen 325 mg tablet 650 mg PO TID PRN Pain 11/16/21 11/10/22 (Tylenol) cyanocobalamin (vitamin B-12) 1,000 mcg PO DAILY 11/10/22 11/10/22 1,000 mcg tablet folic acid 1 mg tablet 1 mg PO DAILY 11/10/22 11/10/22 lidocaine 4 % topical patch 1 patch topical DAILY PRN Pain 11/10/22 11/10/22 multivitamin 1 tab PO DAILY 11/10/22 11/10/22 sodium chloride 1 gram tablet 1,000 mg PO BID 11/10/22 11/10/22 tamsulosin 0.4 mg capsule (Flomax) 0.4 mg PO BEDTIME 11/10/22 11/10/22 Previous Rx's Medication Instructions Recorded amlodipine 5 mg tablet 5 mg PO DAILY #30 tabs 11/05/22 nicotine 14 mg/24 hr daily 14 mg transdermal DAILY #30 ea 11/05/22 transdermal patch thiamine HCl (vitamin B1) 100 mg 100 mg PO DAILY #30 tabs 11/05/22 tablet acetaminophen 325 mg tablet 650 mg (2 x 325 mg) PO Q6H PRN 11/14/22 Pain, Mild (Pain Scale 1-3) #60 tabs amoxicillin 875 mg-potassium 1 tab PO BID 10 days #20 tabs 01/22/23 clavulanate 125 mg tablet Allergies Allergy/AdvReac Type Severity Reaction Status Date / Time No Known Allergies Allergy Verified 12/02/22 11:05 Review of Systems 2 Review of Systems: Constitutional : No Weight loss, No Fever, No Chills, No Fatigue, No Malaise ENT/Mouth : No sore throat, No Rhinorrhea Eyes: No Eye Pain, No Swelling, No Redness Cardiovascular : No Chest Pain, No SOB, No Dyspnea on Exertion, No Orthopnea, No Edema, No Palpitations Respiratory : No Cough, No Sputum, No Wheezing Gastrointestinal : No Nausea, No Vomiting, No Diarrhea, No Constipation, No abdominal Pain, No Hematochezia, No Melena Genitourinary : No Dysuria, No Urinary Frequency, No Hematuria, Musculoskeletal : + joint pain, No Myalgias, + Joint Swelling Skin : No Skin Lesions, No rash Neuro : No Weakness, No Numbness, No Dizziness, No Headache Psych : No Anxiety/Panic, No Depression All other systems reviewed and are negative Yes all other systems are reviewed and are negative [facility] Past Medical History Attestation statement: The following information was validated with the patient. Source: old records reviewed and nursing notes reviewed Medical History Anemia BPH (benign prostatic hyperplasia) COPD (chronic obstructive pulmonary disease) Alcohol dependence in early full remission Fractured nose Hyponatremia Hip fracture Acute hyponatremia Right leg weakness Clavicle fracture Esophagitis Acute hypokalemia Adult failure to thrive Family History Family History Mother Lung cancer Sister Lung cancer Social History Social History Household Members: Spouse Housing: Apartment Do you presently have visiting nurse or other home services: No Alcohol intake: former Patient Tobacco Use Status: Former Tobacco user Quit Date: 3 weeks ago Tobacco use type: Cigarette Cigarette Packs Per Day: 1 Cigarettes Per Day: 20.0 Advance Directives: Yes Advance Directives on File: Yes Advance Directives Date on File: 11/06/22 service: No Current occupational status: employed Physical Exam ED Vital Signs: Vital Signs - 24 hr 01/22/23 07:48 01/22/23 08:22 Temperature 96.5 F L Pulse Rate 94 97 Respiratory Rate 18 20 Blood Pressure 186/110 H 168/98 H Pulse Oximetry 97 96 Oxygen Delivery Method Room Air Room Air BMI result Body Mass Index 18.6 vss Appearance: Alert.? Oriented X3.? No acute distress.? Head: Normocephalic, atraumatic, no step-offs or deformities Eyes: Pupils equal, round and reactive to light.?rmal.? Respiratory: No respiratory distress.? Breath sounds normal.? Abdomen: Soft and nontender.? Skin: Skin warm and dry.? Normal skin color.? Normal skin turgor.? Extremities: No lower extremity edema.? No calf ttp. 5/5 strength to bilateral upper and lower extremities + erythema and warmth overlying the dorsal aspect of right hand, wrist, forearm and up into the right elbow. Full painless range of motion to bilateral elbows, fingers, left wrist. Right wrist with discomfort with range of motion. No evidence of abscess. No wrist drop. Capillary refill less than 2 seconds to bilateral upper extremity digits. Normal sensation distally. Back: No midline tenderness, no C-spine tenderness, full range of motion, no CVA tenderness bilaterally Neuro: Oriented X 3.? No motor deficit.? No sensory deficit. CN 2-12 intact Course Reevaluation(s) Reevaluation #1: CBC appears to be around patient's baseline, normocytic anemia noted. Chemistry with low sodium at baseline, no acute findings. Tolerating p.o.. No other acute electrolyte abnormalities requiring intervention. Patient's CRP 12.66, ESR 64. X-ray right hand with arthritic changes as described. Gout could be a differential. However based off history and physical exam I suspect this is likely cellulitis with secondary swelling. I did discuss this case with Ortho , who recommends discharge home with p.o. antibiotics and follow-up in the office better Thursday. Educated patient on diagnosis and treatment plan, answered all question, patient verbalizes understanding. At this time patient will be discharged home, advised to return with new or worsening symptoms. Educated on worrisome signs and symptoms and when to return. At this time I feel comfortable discharge home. Time: 10:35 Medications Administered Discontinued Medications Generic Name Dose Route Start Last Admin Trade Name Freq PRN Reason Stop Dose Admin Diphtheria/Tetanus/Acell Pertussis 0.5 ml 01/22/23 07:59 01/22/23 08:13 Diphth,Pertus(Acell),Tet Adult 0.5 Ml Syringe IM 01/22/23 08:00 0.5 ml .ONCE ONE Administration Medical Decision Making Medical Decision Making MDM Narrative: 67-year-old male presents with cat bite/scratch to right upper extremity that occurred on Thursday, symptoms progressively worsening ever since. Physical exam significant for No lower extremity edema.? No calf ttp. 5/5 strength to bilateral upper and lower extremities + erythema and warmth overlying the dorsal aspect of right hand, wrist, forearm and up into the right elbow. Full painless range of motion to bilateral elbows, fingers, left wrist. Right wrist with discomfort with range of motion. No evidence of abscess. No wrist drop. Capillary refill less than 2 seconds to bilateral upper extremity digits. Normal sensation distally. Concerns for cellulitis likely secondary to animal weight. Less likely osteomyelitis, septic joint, tenosynovitis. Unlikely neurovascular compromise, threat to [place]. Plan labs, blood cultures, lactic. Differential Diagnosis Differential Diagnoses: The differential diagnosis associated with the presentation includes Concerns for cellulitis likely secondary to animal weight. Less likely osteomyelitis, septic joint, tenosynovitis. Unlikely neurovascular compromise, threat to [place]. Admission/Observation Consideration of admission/observation: Escalation of care including admission/observation considered Possible Consult Healthcare Provider Management of the patient was discussed with: Room Manager (Ortho-) Lab Data [facility] Lab Attestation statement: I reviewed the patient's lab results. 01/22/23 08:41 01/22/23 08:41 Labs: Lab Results 01/22/23 Range/Units 08:41 WBC 7.7 (4.8-10.8) X10*3/uL RBC 4.05 L D (4.60-5.80) X10*6/uL Hgb 13.3 L D (14.0-18.0) g/dl Hct 39.5 L D (42.0-52.0) % MCV 97.5 (80.0-98.0) fL MCH 32.8 (27.0-33.0) pg MCHC 33.7 (31.0-36.0) g/dl RDW 15.7 (11.0-16.0) % Plt Count 272 D (160-400) X10*3/uL MPV 7.7 L (9.4-12.4) fL Immature Gran % (Auto) 0.6 H (0.0-0.4) % Neut % (Auto) 75.0 H (45-73) % Lymph % (Auto) 15.3 L (20-40) % [place] % (Auto) 8.3 (2-11) % Eos % (Auto) 0.4 (0-4) % Baso % (Auto) 0.4 (0-2) % Lymph # (Auto) 1.2 (1.2-4.9) X10*3/uL [place] # (Auto) 0.6 (0.1-1.2) X10*3/uL Eos # (Auto) 0.0 (0.0-0.4) X10*3/uL Baso # (Auto) 0.0 (0.0-0.2) X10*3/uL Abs Immat Gran (auto) 0.05 H (0.00-0.03) X10*3/uL Absolute Neuts (auto) 5.8 (2.0-8.3) x10*3/uL Absolute Nucleated RBC 0.000 (0.0-0.012) X10*3/uL Nucleated RBC % (auto) 0.0 (0.0-0.2) /100WBC ESR 64 H (0-15) MM/HR Sodium 131 L (135-145) mmol/L Potassium 3.8 (3.3-5.1) mmol/L Chloride 95 L (96-108) mmol/L Carbon Dioxide 27 (22-29) mmol/L Anion Gap 13 (12-20) BUN 6 L (9-16) mg/dL Creatinine 0.54 (0.5-1.4) mg/dL Estim Creat Clear Calc 107.0 Estimated GFR > 60 Random Glucose 91 (60-115) mg/dL Lactic Acid 1.0 (0.5-2.0) mmol/L Calcium 9.8 D (8.4-10.2) mg/dL Total Bilirubin 0.5 (0.0-1.0) mg/dL AST 16 (5-37) U/L ALT 11 (0-40) U/L Alkaline Phosphatase 131 H (39-117) U/L C-Reactive Protein 12.66 H (< or = 0.50) mg/dL Total Protein 8.0 (6.5-8.0) g/dL Albumin 4.3 (3.5-5.0) g/dL Prescription Management I considered prescription management with: Antibiotic Critical Care Time Critical Care Time Critical Care Time: Yes Total Critical Care Time: 45 Attestation: I attest to this time spent taking care of the patient, obtaining history, physical, reviewing labs, imaging, speaking to my attending, speaking to specialist. Discharge Plan Discharge Clinical Impression: Animal bite, Cellulitis, Pain in right arm Patient Disposition: Home, Self-Care Instructions: Cellulitis (ED) Additional Instructions: Take your medications as prescribed. If you were prescribed antibiotics today, it is important that you take your medication to their entirety, do not skip any doses, do not finish them early. Follow-up with your primary care provider this week. Follow up with ortho as soon as possible Return to the emergency department with new or worsening symptoms. Such as fevers, chills, chest pain, shortness of breath, nausea, vomiting, dizziness, headache, vision changes, lethargy In case of emergency call 911 Prescriptions: New amoxicillin-pot clavulanate 875-125 mg tablet 1 tab PO BID 10 Days Qty: 20 0RF No Action acetaminophen [Tylenol] 325 mg Tablet 650 mg PO TID PRN (Reason: Pain) nicotine 14 mg/24 hr Patch 24 Hour 14 mg transdermal DAILY Qty: 30 0RF thiamine HCl (vitamin B1) 100 mg tablet 100 mg PO DAILY Qty: 30 0RF amlodipine 5 mg Tablet 5 mg PO DAILY Qty: 30 0RF Protocol: Hold for SBP< HOLD for SBP < : 90 lidocaine 4 % Adhesive Patch,Medicated 1 patch TOPICAL DAILY PRN (Reason: Pain) Rx Instructions: APPLY TO RIGHT HIP. PUT ON IN AM TAKE OFF IN PM sodium chloride 1 gram Tablet 1,000 mg PO BID cyanocobalamin (vitamin B-12) 1,000 mcg Tablet 1,000 mcg PO DAILY tamsulosin [Flomax] 0.4 mg Capsule 0.4 mg PO BEDTIME folic acid 1 mg Tablet 1 mg PO DAILY multivitamin Tablet 1 tab PO DAILY acetaminophen 325 mg Tablet 650 mg PO Q6H PRN (Reason: Pain, Mild (Pain Scale 1-3)) Qty: 60 0RF Referrals: [facility] [facility] [Provider Group] - 1 day Physician,Unknown J [Physician] - 2 days Stand Alone Forms: Work/School Release
[2023-01-22] MEDS: Diphth,Pertus(ACell),Tet Adult 0.5 ML SYRINGE IM (08:13)
[2023-01-22 08:22] VITALS: BP 168/98; PULSE 97; RESP 20; O2SAT 96
--- NOTE | 2023-01-22 08:26 | PC.NURSE ---
Pt reporting kitten attacked his arm while he was sitting in the chair, scratch became reddened/warm/and redness has spread since initial scratch. PT BP elevated in triage, reported he is suppose to be taking BP medications but has not been able to afford to pick them up in a few months. Reports he is established with a PCP, who he has not had to see recently. Awaiting lab results at this time
[2023-01-22 08:50] LABS: MANUAL DIFF FLAG NO
[2023-01-22 08:51] LABS: Basophils Percent Auto 0.4 % (0-2); Eosinophils Percent Auto 0.4 % (0-4); Hematocrit 39.5 % (42.0-52.0); Hemoglobin 13.3 g/dl (14.0-18.0); Imm Gran Abs Auto 0.05 X10*3/uL (0.00-0.03); Imm Gran Pct Auto 0.6 % (0.0-0.4); Lymphocytes Absolute Auto 1.2 X10*3/uL (1.2-4.9); Lymphocytes Percent Auto 15.3 % (20-40); Mean Corpuscular HGB Conc 33.7 g/dl (31.0-36.0); Mean Corpuscular Hemoglobin 32.8 pg (27.0-33.0); Mean Corpuscular Volume 97.5 fL (80.0-98.0); Mean Platelet Volume 7.7 fL (9.4-12.4); Monocytes Absolute Auto 0.6 X10*3/uL (0.1-1.2); Monocytes Percent Auto 8.3 % (2-11); Neutrophils Absolute Auto 5.8 x10*3/uL (2.0-8.3); Platelet Count 272 X10*3/uL (160-400); Red Blood Count 4.05 X10*6/uL (4.60-5.80); Red Cell Distribution Width 15.7 % (11.0-16.0); White Blood Count 7.7 X10*3/uL (4.8-10.8)
[2023-01-22 09:05] LABS: C Reactive Protein 12.66 mg/dL (< or = 0.50)
[2023-01-22 09:06] LABS: Alanine Aminotransferase 11 U/L (0-40); Albumin Level 4.3 g/dL (3.5-5.0); Alkaline Phosphatase 131 U/L (39-117); Anion Gap 13 (12-20); Aspartate Amino Transferase 16 U/L (5-37); Bilirubin Total 0.5 mg/dL (0.0-1.0); Blood Urea Nitrogen 6 mg/dL (9-16); Calcium 9.8 mg/dL (8.4-10.2); Carbon Dioxide 27 mmol/L (22-29); Chloride 95 mmol/L (96-108); Estimated Glomerular Filt Rate > 60; Glucose Random 91 mg/dL (60-115); Potassium 3.8 mmol/L (3.3-5.1); Sodium 131 mmol/L (135-145)
[2023-01-22 09:51] LABS: Erythrocyte Sedimentation Rate 64 MM/HR (0-15)
[2023-01-22] MEDS: Amoxicillin/Potassium Clav 875 MG TABLET PO (10:43)
[2023-01-22 10:46] VITALS: BP 179/101; PULSE 94; RESP 18; O2SAT 98
== END 2023-01-22 10:50 | disposition home or self-care (01) ==
PROVIDERS: Physician Assistant; Emergency Provider Student in an Organized Health Care Education/Training Program; PCP Internal Medicine Cardiovascular Disease
DX: L03.113 Cellulitis of right upper limb (principal); M79.601 Pain in right arm
CPT/HCPCS: 36415; 73110; 73130; 80053; 83605; 85025; 85652; 86140; 87040; 90471; 90715; 99284

== ENCOUNTER 2024-10-05 09:57 | Outpatient (AMB) | payer OTHER, SELFPAY ==
--- NOTE | 2024-10-05 09:42 | MHC.PC.OV ---
Vital Signs 10/05/24 10:05 Height 5 ft 3.78 in Weight 115 lb 6 oz BMI 19.9 BP 185/101 H Blood Pressure Location Lt brachial Position Sitting Respiration 20 Pulse 88 Pulse Source Pulse Oximeter Temp 97.8 F Temp Source Temporal Artery Scan Pulse Oximetry (%) 97 Oxygen Delivery Method Room Air Intake Visit Reasons: establish care Personal Vehicle Advisor Required: No Accompanied by: Daughter Allergies No Known Allergies Allergy (Verified 10/05/24 10:32) Medication List - Last Reconciled 10/05/24 by Ciara Gamble PA-C No Known Home Meds Tobacco use date assessed: 10/05/24 Fall risk assessment: No Falls in past year Last assessed Fall Risk: 10/05/24 Dental Screening Dental Screen Date: 10/05/24 Did you have a dental visit in the last 12 months?: No Did you have a dental problem in the last 6 months where you did not have access to dental care?: No Was dental information given to patient?: No HPI establish care HPI Details The patient is a 69-year-old male presenting for a new patient appointment and management of multiple chronic conditions. The patient has a history of alcohol dependence, which he acknowledges, and currently consumes beer. He also has a history of benign prostatic hyperplasia but reports no current issues with urination, thus declining medication for it. The patient sustained a right femur fracture at work, resulting in a hip implant. He also has a history of hypertension and was previously on medication, which he is not currently taking. The patient has a history of hyponatremia, likely due to SIADH, and macrocytosis without anemia. He also has a history of onychomycosis and multiple nevi. The patient has a history of tobacco use disorder, having resumed smoking, and likely has chronic obstructive pulmonary disease (COPD) due to smoking. He reports decreased air movement in his lungs but no wheezing. The patient has cataracts affecting his vision, particularly in the right eye, and is considering surgery. He has not had a colonoscopy since 2003 and is considering a stool test for colon cancer screening. Social History - Substance use: History of alcohol dependence, currently consumes beer. - Tobacco use: Resumed smoking, contributing to likely COPD. [facility] Medical History Hyponatremia Colon cancer screening Cataract Tobacco use disorder Onychomycosis Macrocytosis without anemia History of femur fracture Alcohol dependency Establishing care with new doctor, encounter for Anemia BPH (benign prostatic hyperplasia) COPD (chronic obstructive pulmonary disease) Alcohol dependence in early full remission Fractured nose Hip fracture Acute hyponatremia Right leg weakness Clavicle fracture Esophagitis Acute hypokalemia Adult failure to thrive Family History Mother Lung cancer Sister Lung cancer Social History Household Members: Spouse Housing: Apartment Do you presently have visiting nurse or other home services: No Alcohol intake: current Alcohol intake frequency: a few times a month Alcohol type: beer Patient Tobacco Use Status: Current everyday Tobacco user Tobacco use type: Cigarette Cigarette Packs Per Day: 1 Cigarettes Per Day: 20.0 Advance Directives Date on File: 11/06/22 service: No Current occupational status: retired Cognitive needs: No Hearing needs: No Vision needs: Yes (rx glasses) Questionnaire PHQ-9 Over the last 2 weeks, how often have you been bothered by any of the following problems? 1. Little interest or pleasure in doing things: not at all 2. Feeling down, depressed, or hopeless: not at all 3. Trouble falling or staying asleep, or sleeping too much: not at all 4. Feeling tired or having little energy: not at all 5. Poor appetite or overeating: not at all 6. Feeling bad about yourself - or that you are a failure or have let yourself or your family down: not at all 7. Trouble concentrating on things, such as reading the newspaper or watching television: not at all 8. Moving or speaking so slowly that other people could have noticed. Or the opposite - being so fidgety or restless that you have been moving around a lot more than usual: not at all 9. Thoughts that you would be better off or of hurting yourself in some way: not at all Total score: 0 Depression Screening Interpretation: Negative Depression Screening Done: Yes 44029 - PHQ-9 Billing: Yes Source: Developed by Drs. Jorge Argueta, Sidra Ernandez, Danis Dorado and colleagues, with an educational carmelina from [employer]. Thrive Questionnaire Date Thrive assessed: 10/05/24 I am a: Patient What is your living situation today?: I have a steady place to live Within the past 12 months, did the food you bought not last and you didn't have the money to get more?: Never true Within the past 12 months, did you worry whether your food would run out before you got money to buy more?: Never true Do you have trouble paying for medicines?: No Do you have trouble getting transportation to medical appointments?: No Do you have trouble paying your heating and electricity bill?: No Do you have trouble taking care of your child, family member or friend?: No Do you have trouble with day-to-day activities such as bathing, preparing meals, shopping, managing finances, etc.?: No Are you currently unemployed and looking for a job?: No Are you interested in more education?: No Please select the resources that you would like help with: None Currently or been in a relationship where the following occur: No concerns reported THRIVE Score: 0 AUDIT C Alcohol Use Questionnaire (AUDIT-C) 1. How often do you have a drink containing alcohol?: 2-4 times a month 2. How many drinks containing alcohol do you have on a typical day when you are drinking?: 1 or 2 3. How often do you have six or more drinks on one occasion?: Never Total Score: 2 Score Reviewed/Action Taken: No GONZALO-7 AMB Questionnaire GONZALO-7 Date GONZALO - 7 assessed: 10/05/24 Feeling nervous, anxious, or on edge: 0 = Not at all Not being able to stop or control worryin = Not at all Worrying too much about different things: 0 = Not at all Trouble relaxin = Not at all Being so restless that it is hard to sit still: 0 = Not at all Becoming easily annoyed or irritable: 0 = Not at all Feeling afraid as if something awful might happen: 0 = Not at all Total GONZALO-7 score (0-4 normal; 5-9 mild; 10-14 moderate; 15-21 severe): 0 Source: Developed by Drs. Jorge Argueta, Sidra Ernandez, Danis Dordao and colleagues, with an educational carmelina from [employer]. GONZALO-7 Assessment Billing GONZALO-7 Assessment Tool: GONZALO-7 Assessment 58793 Review of Systems Const Details: - Respiratory: Reports decreased air movement, denies wheezing. - Gastrointestinal: Denies black or bloody stools. All systems reviewed & are unremarkable except as noted in HPI and below Physical exam (Primary Care) Vital Signs: Last Vital Signs Temp 97.8 F 10/05/24 10:05 Pulse 88 10/05/24 10:05 Resp 20 10/05/24 10:05 BP 185/101 H 10/05/24 10:05 Pulse Ox 97 10/05/24 10:05 Oxygen Delivery Method Room Air 10/05/24 10:05 Care Plan Goal for BP management: <140/90 patient will be started on amlodipine and he will keep a blood pressure diary and return in 1 month BMI result Body Mass Index 19.9 BMI Assessment/Plan discussion: Low BMI Low, Plan discussed: lifestyle, increase calorie intake and dietary Tobacco/Smoking Status: Tobacco use Status Tobacco use date assessed 10/05/24 10/05/24 09:45 Patient Tobacco Use Status Current everyday Tobacco 10/05/24 10:24 Tobacco use type Cigarette 10/05/24 10:24 PHQ-9: PHQ-9 Score PHQ-9: Total score 0 10/05/24 10:24 Depression Screening Interpretation: Negative Thrive Assessment: Date of Thrive Assessment Date Thrive assessed 10/05/24 10/05/24 09:45 Currently or been in a relationship where the following occur: No concerns reported Const Other: Appearance: Alert. Oriented X3. No acute distress. Head: Normal external exam. Normocephalic. Atraumatic. Eyes: Pupils are equal, round, and reactive to light. Extraocular movements intact. Conjunctiva and sclera normal. Eyelids normal. Patient has cataracts in the right eye. Ears: External auditory canal normal. Tympanic membranes normal. Throat: Pharynx normal. Uvula midline. Moist mucous membranes. Neck: Normal inspection. Neck supple. Full range of motion. No adenopathy. Thyroid Normal. No meningeal signs. No neck mass noted. Cardiovascular: Normal heart rate and rhythm. Heart sound normal. No murmurs noted. Pulses normal throughout. Blood pressure is really high. Respiratory: No respiratory distress. Painless inspiration. Breath sounds decreased air movement noted. No wheezes/rales/rhonchi noted. Chest nontender. No accessory muscle usage noted or decreased air movement noted. Abdomen: Soft and nontender. Bowel sounds normal in all 4 quadrants. No distention noted. No organomegaly noted. No visible injury noted. Back: No costovertebral angle tenderness. Full range of motion noted. Skin: Skin warm and dry. Normal skin color. Normal skin turgor. No rashes/lesions/lacerations noted. Multiple nevi (birthmarks) present. Extremities: No lower extremity edema. Extremities exhibit normal range of motion. Extremities nontender. Neuro: Oriented X 3. No motor deficit. No sensory deficit. Reflexes normal. Coding Level of Care Code New Pt Level 5 (39097) Complex EM visit Add On G2211 Diagnoses Establishing care with new doctor, encounter for Z76.89 Alcohol dependency F10.20 BPH (benign prostatic hyperplasia) N40.0 History of femur fracture Z87.81 Hyponatremia E87.1 Macrocytosis without anemia D75.89 Onychomycosis B35.1 Tobacco use disorder F17.200 COPD (chronic obstructive pulmonary disease) J44.9 Cataract H26.9 Colon cancer screening Z12.11 Additional Codes PHQ-9 - 36834 - PHQ-9 Billing: Yes ([id number]) GONZALO-7 Assessment Billing - GONZALO-7 Assessment Tool: GONZALO-7 Assessment 20421 ([id number]) Assessment & Plan Assessment & Plan (1) Establishing care with new doctor, encounter for: Code(s): Z76.89 - Persons encountering health services in other specified circumstances Category: Medical (2) Alcohol dependency: Code(s): F10.20 - Alcohol dependence, uncomplicated Category: Medical Plan: The patient acknowledges a history of alcohol dependence and currently consumes beer. Continued monitoring and counseling for alcohol use are recommended. (3) BPH (benign prostatic hyperplasia): Code(s): N40.0 - Benign prostatic hyperplasia without lower urinary tract symptoms Category: Medical Plan: The patient has benign prostatic hyperplasia but reports no current urinary issues and declines medication. Continued monitoring is advised. (4) History of femur fracture: Comment: Status post right implant Code(s): Z87.81 - Personal history of (healed) traumatic fracture Category: Medical Plan: The patient has a history of a right femur fracture with a hip implant. No current issues reported, and no further intervention is planned at this time. (5) Hyponatremia: Code(s): E87.1 - Hypo-osmolality and hyponatremia Category: Medical Plan: The patient has a history of hypertension and was previously on medication. Amlodipine is to be restarted to manage blood pressure. (6) Macrocytosis without anemia: Code(s): D75.89 - Other specified diseases of blood and blood-forming organs Category: Medical Plan: The patient has macrocytosis without anemia. Monitoring of blood parameters is advised. (7) Onychomycosis: Code(s): B35.1 - Tinea unguium Category: Medical Plan: The patient has a history of onychomycosis. No current treatment is planned unless symptoms recur. (8) Tobacco use disorder: Code(s): F17.200 - Nicotine dependence, unspecified, uncomplicated Category: Medical Plan: The patient has resumed smoking, contributing to likely COPD. Smoking cessation is strongly advised. (9) COPD (chronic obstructive pulmonary disease): Code(s): J44.9 - Chronic obstructive pulmonary disease, unspecified Category: Medical Plan: The patient likely has COPD due to smoking. Patient will be started on albuterol on Ellipta. Chest x-ray will be obtained. Referral to pulmonology and initiation of appropriate inhaler therapy are planned. (10) Cataract: Code(s): H26.9 - Unspecified cataract Category: Medical Plan: The patient has cataracts affecting vision, particularly in the right eye. Surgical intervention is being considered. (11) Colon cancer screening: Code(s): Z12.11 - Encounter for screening for malignant neoplasm of colon Category: Medical Plan: The patient has not had a colonoscopy since 2003. A stool test for colon cancer screening is recommended as an alternative to colonoscopy. Plan Plan Patient was informed and verbally consented to the use of an ambient scribe for clinic note documentation during this visit. 1. Alcohol Dependence The patient acknowledges a history of alcohol dependence and currently consumes beer. Continued monitoring and counseling for alcohol use are recommended. 2. Benign Prostatic Hyperplasia The patient has benign prostatic hyperplasia but reports no current urinary issues and declines medication. Continued monitoring is advised. 3. Right Femur Fracture With Hip Implant The patient has a history of a right femur fracture with a hip implant. No current issues reported, and no further intervention is planned at this time. 4. Hypertension The patient has a history of hypertension and was previously on medication. Amlodipine is to be restarted to manage blood pressure. 5. Hyponatremia, Likely Siadh The patient has a history of hyponatremia, likely due to SIADH. Monitoring of sodium levels is recommended. 6. Macrocytosis Without Anemia The patient has macrocytosis without anemia. Monitoring of blood parameters is advised. 7. Onychomycosis The patient has a history of onychomycosis. No current treatment is planned unless symptoms recur. 8. Tobacco Use Disorder The patient has resumed smoking, contributing to likely COPD. Smoking cessation is strongly advised. 9. Chronic Obstructive Pulmonary Disease (Copd) The patient likely has COPD due to smoking. Referral to pulmonology and initiation of appropriate inhaler therapy are planned. 10. Cataracts The patient has cataracts affecting vision, particularly in the right eye. Surgical intervention is being considered. 11. Preventative Care: Colon Cancer Screening With Stool Test The patient has not had a colonoscopy since 2003. A stool test for colon cancer screening is recommended as an alternative to colonoscopy. During the visit, we discussed the patient's history of alcohol dependence and the importance of monitoring and counseling. We reviewed his benign prostatic hyperplasia and the decision to forgo medication due to lack of symptoms. We addressed his history of a right femur fracture with hip implant, noting no current issues. The patient's hypertension management was discussed, with a plan to restart amlodipine. We also reviewed his hyponatremia and macrocytosis, recommending monitoring. The patient's tobacco use and likely COPD were addressed, with a referral to pulmonology and inhaler therapy planned. We discussed his cataracts and the consideration of surgery. Preventative care, including a stool test for colon cancer screening, was recommended. Orders: Orders Comprehensive [place]. Panel Fast Today Z00.00 - Encounter for general adult medical examination without abnormal findings Hemoglobin A1c Today Z00.00 - Encounter for general adult medical examination without abnormal findings Magnesium Today Z00.00 - Encounter for general adult medical examination without abnormal findings TSH reflex Free T4 Today Z00.00 - Encounter for general adult medical examination without abnormal findings C Reactive Protein Today Z00.00 - Encounter for general adult medical examination without abnormal findings Complete Blood Count Auto Diff Today Z00.00 - Encounter for general adult medical examination without abnormal findings Liver Panel Today Z00.00 - Encounter for general adult medical examination without abnormal findings Lipid Panel Today Z00.00 - Encounter for general adult medical examination without abnormal findings Vitamin B12 and Folate Today Z00.00 - Encounter for general adult medical examination without abnormal findings Vitamin D 25-OH Total Today Z00.00 - Encounter for general adult medical examination without abnormal findings PSA,Total (Free>4and<10) Today Z00.00 - Encounter for general adult medical examination without abnormal findings XR chest 2V Today J44.9 - Chronic obstructive pulmonary disease, unspecified ECG 12 lead EKG Today J44.9 - Chronic obstructive pulmonary disease, unspecified Referrals Cologuard Test Z12.11 - Encounter for screening for malignant neoplasm of colon, Z12.12 - Encounter for screening for malignant neoplasm of rectum Pulmonology Referral J44.9 - Chronic obstructive pulmonary disease, unspecified Medications: New polyethylene glycol 3350 (Miralax) 17 grams PO BID 30 ea 3RF albuterol sulfate 90 mcg/actuation (Ventolin HFA) 1 inh inhalation QID PRN 8.5 grams 1RF shortness of breath or wheezing bydbtaiwdub-mvyhjtopd-czqoyicv 200-62.5-25 mcg (Trelegy Ellipta) 1 inh inhalation DAILY 28 ea 3RF Changed From amlodipine 5 mg See Protocol PO DAILY 30 tabs 0RF To amlodipine 10 mg See Protocol PO DAILY 90 tabs 0RF Patient Instructions: - Take amlodipine daily as prescribed for blood pressure management. - Use the prescribed inhalers as directed, one daily and one as needed. - Schedule and complete a stool test for colon cancer screening. - Monitor blood pressure regularly and report any significant changes. - Avoid using naoy-zga-rltibxt inhalers that contain epinephrine. - Consider smoking cessation resources to quit smoking. - Follow up with pulmonology for COPD management. - Schedule a follow-up appointment within one month for preoperative evaluation.
[2024-10-05 10:05] VITALS: BP 185/101; PULSE 88; RESP 20; TEMP 36.6; O2SAT 97; BMI 19.9
--- OUTSIDE RECORDS SUMMARY | 2024-10-05 10:44 | XMS_ITS | Clinical Summary ---
Author Organization [facility] Facility Address [address] [place] [id number] Care Team Providers Care Vocational Coordinator Name Role Phone Bernardo Crawford Jose De Jesus Primary Care Provider Family History Medical History Relation Comments Dementia Father Hypertension Father Stroke Father Cancer Mother Diabetes Mother Type 2 Cancer Sibling sister-breast; s ister Relation Status Comments Father Mother Sibling Social History Tobacco Use Types Packs/Day Years Used Date Smoking Tobacco: Every Day Cigarettes Alcohol Use Standard Drinks/Week Comments Yes 0 (1 standard drink = 0.6 oz pure alcohol) Alcoholic Drinks/day: 3 or more drinks per day Sex and Gender Information Value Date Recorded Sex Assigned at Not on file Legal Sex Male 4:58 PM EST Gender Identity Not on file Sexual Orientation Not on file Last Filed Vital Signs Vital Sign Reading Time Taken Comments Blood Pressure 140/80 02/03/2020 12:00 PM EST Pulse 105 02/03/2020 12:00 PM EST Temperature - - Respiratory Rate - - Oxygen Saturation 95% 02/03/2020 12:00 PM EST Inhaled Oxygen Concentration - - Weight 61.4 kg (135 lb 6.4 oz) 02/03/2020 12:00 PM EST Height 170.2 cm (5' 7 ) 02/03/2020 12:00 PM EST Body Mass Index 21.21 02/03/2020 12:00 PM EST Plan of Treatment Health Maintenance Due Date Last Done Comments Pneumococcal Vaccine: 50+ Years (1 of 2 - PCV) 1976 Colorectal Cancer Screening: Annual FOBT 2006 Colorectal Cancer Screening: Colonoscopy 2006 Colorectal Cancer Screening: Sigmoidoscopy 2006 Influenza Vaccine (#1) 2024 8, 02/23/2009, 01/24/2008 Hepatitis B Vaccine Aged Out No longe r eligible based on patient's age to complete this topic Insurance [employer] Care Teams Vocational Coordinator Relationship Specialty Start Date End Date Bernardo Crawford [address] [place] [id number] PCP - General 11/18/22
== END 2024-10-05 10:53 | disposition home or self-care (01) ==
LOC: HO.HMCSH 09:57
PROVIDERS: PCP Internal Medicine Cardiovascular Disease; Visit Provider Physician Assistant Medical
DX: J44.9 Chronic obstructive pulmonary disease, unspecified (principal); F10.20 Alcohol dependence, uncomplicated; N40.0 Benign prostatic hyperplasia without lower urinary tract symptoms; Z87.81 Personal history of (healed) traumatic fracture; E87.1 Hypo-osmolality and hyponatremia; D75.89 Other specified diseases of blood and blood-forming organs; B35.1 Tinea unguium; F17.200 Nicotine dependence, unspecified, uncomplicated; H26.9 Unspecified cataract; Z12.11 Encounter for screening for malignant neoplasm of colon

== ENCOUNTER → 2024-10-05 09:57 | Outpatient (BNVA) | payer OTHER, SELFPAY | PROVIDERS: PCP Internal Medicine Cardiovascular Disease; Visit Provider Physician Assistant Medical | DX: Z76.89 Persons encountering health services in other specified circumstances (principal); F10.20 Alcohol dependence, uncomplicated; N40.0 Benign prostatic hyperplasia without lower urinary tract symptoms; E87.1 Hypo-osmolality and hyponatremia; D75.89 Other specified diseases of blood and blood-forming organs; B35.1 Tinea unguium; J44.9 Chronic obstructive pulmonary disease, unspecified; H26.9 Unspecified cataract; F17.210 Nicotine dependence, cigarettes, uncomplicated; Z87.81 Personal history of (healed) traumatic fracture; Z13.31 Encounter for screening for depression; Z13.39 Encounter for screening examination for other mental health and behavioral disorders | CPT/HCPCS: 96127 ==

== ENCOUNTER 2024-10-20 07:55 | Outpatient (REF) | payer MEDICARE, SELFPAY ==
--- NOTE | ~2024-10-20 | XR_ITS ---
EXAMINATION: XR CHEST 2 VIEWS HISTORY: J44.9 - Chronic obstructive pulmonary disease, unspecified COMPARISON: Comparison is made with the prior examination dated 11/10/2022. FINDINGS: PA and lateral views of the chest are submitted. The lungs remain hyperinflated, consistent with COPD. The lungs are clear. There is no pleural effusion, pneumothorax, or pulmonary vascular congestion. The heart is normal in size. The aorta is calcified. There is dextro scoliosis and degenerative disc disease of the spine. XR/XR chest 2V IMPRESSION: COPD. No acute cardiopulmonary abnormality. Electronically signed by: Jorge Jimenez MD 10/20/2024 11:11 AM EDT
[2024-10-20 10:09] LABS: MANUAL DIFF FLAG NO
[2024-10-20 10:16] LABS: Hematocrit 43.6 % (42.0-52.0); Hemoglobin 15.0 g/dl (14.0-18.0); Imm Gran Abs Auto 0.04 X10*3/uL (0.00-0.03); Imm Gran Pct Auto 0.5 % (0.0-0.4); Lymphocytes Absolute Auto 1.9 X10*3/uL (1.2-4.9); Mean Corpuscular HGB Conc 34.4 g/dl (31.0-36.0); Mean Corpuscular Hemoglobin 32.0 pg (27.0-33.0); Mean Corpuscular Volume 93.0 fL (80.0-98.0); NRBC Abs Auto 0.000 X10*3/uL (0.0-0.012); NRBC Pct Auto 0.0 /100WBC (0.0-0.2); Platelet Count 248 X10*3/uL (160-400); Red Blood Count 4.69 X10*6/uL (4.60-5.80); White Blood Count 7.3 X10*3/uL (4.8-10.8)
[2024-10-20 10:30] LABS: Hemoglobin A1C 138.6833 umol/L; Total Hemoglobin (HGBA1C) 3903.8058 umol/L
[2024-10-20 10:49] LABS: Alanine Aminotransferase 15 U/L (0-40); Albumin Level 4.9 g/dL (3.5-5.0); Alkaline Phosphatase 119 U/L (39-117); Anion Gap 13 (12-20); Aspartate Amino Transferase 24 U/L (5-37); Blood Urea Nitrogen 9 mg/dL (9-16); Calcium 9.7 mg/dL (8.4-10.2); Carbon Dioxide 30 mmol/L (22-29); Chloride 96 mmol/L (96-108); Cholesterol 201 mg/dL (<200); Estimated Glomerular Filt Rate > 60; HDL Cholesterol 61 mg/dL (>40); Magnesium 2.1 mg/dL (1.6-2.6); Potassium 4.7 mmol/L (3.3-5.1); Sodium 134 mmol/L (135-145); Total Protein 7.9 g/dL (6.5-8.0); Triglycerides 87 mg/dL (<150)
[2024-10-20 10:52] LABS: PSA,Total (Free>4and<10) 3.07 ng/mL (0.00-4.00)
[2024-10-20 11:11] LABS: Folate 8.1 ng/mL (> or = 4.0); Vitamin B12 362 pg/mL (200-900)
== END 2024-10-20 07:56 | disposition home or self-care (01) ==
LOC: HO.HMGCX 07:55
PROVIDERS: Visit Provider Physician Assistant Medical
DX: Z00.00 Encounter for general adult medical examination without abnormal findings (principal); Z12.5 Encounter for screening for malignant neoplasm of prostate; J44.9 Chronic obstructive pulmonary disease, unspecified
CPT/HCPCS: 36415; 71046; 80053; 80061; 80076; 82248; 82306; 82607; 82746; 83036; 83735; 84153; 84443; 85025; 86140

== ENCOUNTER → 2024-10-20 11:01 | Outpatient (BNV) | payer MEDICARE, SELFPAY | PROVIDERS: Visit Provider Radiology Diagnostic Radiology | DX: J44.9 Chronic obstructive pulmonary disease, unspecified (principal) | CPT/HCPCS: 71046 ==

== ENCOUNTER 2024-11-04 09:03 | Outpatient (AMB) | payer MEDICARE, SELFPAY ==
--- NOTE | 2024-11-04 09:07 | MHC.PC.OV ---
Vital Signs 11/04/24 09:08 11/04/24 12:01 Height 5 ft 3.78 in Weight 111 lb BMI 19.2 BP 160/84 H 144/75 H Blood Pressure Location Lt brachial Position Sitting Respiration 16 Pulse 84 Pulse Source Pulse Oximeter Temp 98.2 F Temp Source Temporal Artery Scan Pulse Oximetry (%) 94 Oxygen Delivery Method Room Air Intake Visit Reasons: Pre op Clearence Singe Winder Required: No Accompanied by: Self / Same As Patient Allergies No Known Allergies Allergy (Verified 11/04/24 09:46) Medication List - Last Reconciled 11/04/24 by Ciara Gamble PA-C albuterol sulfate 90 mcg/actuation (Ventolin HFA) 1 inh inhalation QID PRN amlodipine 10 mg See Protocol PO DAILY ozjywiljete-srcrykmte-gnjbxabz 200-62.5-25 mcg (Trelegy Ellipta) 1 ea inhalation DAILY Tobacco use date assessed: 10/05/24 Fall risk assessment: No Falls in past year Last assessed Fall Risk: 10/05/24 Dental Screening Dental Screen Date: 10/05/24 Did you have a dental visit in the last 12 months?: No Did you have a dental problem in the last 6 months where you did not have access to dental care?: No Was dental information given to patient?: No HPI Pre op Clearence HPI Details The patient is a 69-year-old male presenting for a preoperative evaluation for eye surgery. The patient has a history of hyponatremia, with sodium levels consistently low at 134 mmol/L, slightly below the normal range of 135 mmol/L. He has been advised to increase salt intake to manage this condition. The patient also has hypercholesterolemia, with total cholesterol at 201 mg/dL and LDL cholesterol at 123 mg/dL, both slightly above the desired levels. He has been advised to manage this through dietary changes rather than medication at this time. The patient has a diagnosis of Chronic Obstructive Pulmonary Disease (COPD), which was noted on a recent chest x-ray. He has been referred to pulmonology for further management, but has not yet been contacted for an appointment. The patient has a history of vitamin D deficiency and has been prescribed a supplement, although he has not yet obtained it due to cost concerns. The patient has hypertension, which is currently managed with amlodipine. His blood pressure was recorded at 144/75 mmHg during the visit. [facility] Medical History (Updated 11/04/24 @ 12:39 by Ciara Gamble PA-C) Hypertension Preoperative examination Pure hypercholesterolemia, unspecified Hyperlipidemia LDL goal <100 Vitamin D deficiency Hyponatremia Colon cancer screening Cataract Tobacco use disorder Onychomycosis Macrocytosis without anemia History of femur fracture Alcohol dependency Establishing care with new doctor, encounter for Anemia BPH (benign prostatic hyperplasia) COPD (chronic obstructive pulmonary disease) Alcohol dependence in early full remission Fractured nose Hip fracture Acute hyponatremia Right leg weakness Clavicle fracture Esophagitis Acute hypokalemia Adult failure to thrive Surgical History History of colonoscopy (~12/05/03) Family History Mother Lung cancer Sister Lung cancer Social History Household Members: Spouse Housing: Apartment Do you presently have visiting nurse or other home services: No Alcohol intake: current Alcohol intake frequency: a few times a month Alcohol type: beer Patient Tobacco Use Status: Current everyday Tobacco user Tobacco use type: Cigarette Cigarette Packs Per Day: 1 Cigarettes Per Day: 20.0 Advance Directives Date on File: 11/06/22 service: No Current occupational status: retired Cognitive needs: No Hearing needs: No Vision needs: Yes (rx glasses) Questionnaire PHQ-9 Over the last 2 weeks, how often have you been bothered by any of the following problems? 1. Little interest or pleasure in doing things: not at all 2. Feeling down, depressed, or hopeless: not at all 3. Trouble falling or staying asleep, or sleeping too much: not at all 4. Feeling tired or having little energy: not at all 5. Poor appetite or overeating: not at all 6. Feeling bad about yourself - or that you are a failure or have let yourself or your family down: not at all 7. Trouble concentrating on things, such as reading the newspaper or watching television: not at all 8. Moving or speaking so slowly that other people could have noticed. Or the opposite - being so fidgety or restless that you have been moving around a lot more than usual: not at all 9. Thoughts that you would be better off or of hurting yourself in some way: not at all Total score: 0 Depression Screening Interpretation: Negative Depression Screening Done: Yes 25938 - PHQ-9 Billing: Yes Source: Developed by Drs. Jorge Argueta, Sidra Ernandez, Danis Dorado and colleagues, with an educational carmelina from [employer]. Thrive Questionnaire Date Thrive assessed: 10/05/24 I am a: Patient What is your living situation today?: I have a steady place to live Within the past 12 months, did the food you bought not last and you didn't have the money to get more?: Never true Within the past 12 months, did you worry whether your food would run out before you got money to buy more?: Never true Do you have trouble paying for medicines?: No Do you have trouble getting transportation to medical appointments?: No Do you have trouble paying your heating and electricity bill?: No Do you have trouble taking care of your child, family member or friend?: No Do you have trouble with day-to-day activities such as bathing, preparing meals, shopping, managing finances, etc.?: No Are you currently unemployed and looking for a job?: No Are you interested in more education?: No Please select the resources that you would like help with: None Currently or been in a relationship where the following occur: No concerns reported THRIVE Score: 0 AUDIT C Alcohol Use Questionnaire (AUDIT-C) 1. How often do you have a drink containing alcohol?: 2-4 times a month 2. How many drinks containing alcohol do you have on a typical day when you are drinking?: 1 or 2 3. How often do you have six or more drinks on one occasion?: Never Total Score: 2 Score Reviewed/Action Taken: No GONZALO-7 AMB Questionnaire GONZALO-7 Date GONZALO - 7 assessed: 10/05/24 Feeling nervous, anxious, or on edge: 0 = Not at all Not being able to stop or control worryin = Not at all Worrying too much about different things: 0 = Not at all Trouble relaxin = Not at all Being so restless that it is hard to sit still: 0 = Not at all Becoming easily annoyed or irritable: 0 = Not at all Feeling afraid as if something awful might happen: 0 = Not at all Total GONZALO-7 score (0-4 normal; 5-9 mild; 10-14 moderate; 15-21 severe): 0 Source: Developed by Drs. Jorge Argueta, Sidra Ernandez, Danis Dorado and colleagues, with an educational carmelina from [employer]. GONZALO-7 Assessment Billing GONZALO-7 Assessment Tool: GONZALO-7 Assessment 83463 Review of Systems Const Details: - Ophthalmologic: Reports blurred vision in the right eye. - Respiratory: Reports use of albuterol inhaler; denies other respiratory symptoms. All systems reviewed & are unremarkable except as noted in HPI and below Physical exam (Primary Care) Vital Signs: Last Vital Signs Temp 98.2 F 11/04/24 09:08 Pulse 84 11/04/24 09:08 Resp 16 11/04/24 09:08 BP 160/84 H 11/04/24 09:08 Pulse Ox 94 11/04/24 09:08 Oxygen Delivery Method Room Air 11/04/24 09:08 Care Plan Goal for BP management: <140/90 patient to monitor his blood pressure and continue taking his amlodipine 10 mg daily BMI result Body Mass Index 19.2 Normal BMI Tobacco/Smoking Status: Tobacco use Status Tobacco use date assessed 10/05/24 11/04/24 09:10 Patient Tobacco Use Status Current everyday Tobacco 11/04/24 09:10 Tobacco use type Cigarette 11/04/24 09:10 PHQ-9: PHQ-9 Score PHQ-9: Total score 0 11/04/24 09:38 Depression Screening Interpretation: Negative Thrive Assessment: Date of Thrive Assessment Date Thrive assessed 10/05/24 11/04/24 09:10 Currently or been in a relationship where the following occur: No concerns reported Const Other: Appearance: Alert. Oriented X3. No acute distress. Head: Normal external exam. Normocephalic. Atraumatic. Eyes: Pupils are equal, round, and reactive to light. Extraocular movements intact. Conjunctiva and sclera normal. Eyelids normal. Throat: Pharynx normal. Uvula midline. Moist mucous membranes. Neck: Normal inspection. Neck supple. Full range of motion. Cardiovascular: Normal heart rate and rhythm. Heart sound normal. No murmurs noted. Pulses normal throughout. Respiratory: No respiratory distress. Painless inspiration. Breath sounds normal. No wheezes/rales/rhonchi noted. Chest nontender. No accessory muscle usage noted or decreased air movement noted. Abdomen: Soft and nontender. No distention noted. No organomegaly noted. Back: Full range of motion noted. Skin: Skin warm and dry. Normal skin color. Extremities: No lower extremity edema. Extremities exhibit normal range of motion. Neuro: Oriented X 3. No motor deficit. No sensory deficit. Reflexes normal. Results Reviewed Results Reviewed: - Labs: Sodium 134 mmol/L (normal 135-145 mmol/L), total cholesterol 201 mg/dL (desired <200 mg/dL), LDL cholesterol 123 mg/dL (desired <100 mg/dL), hemoglobin A1c 5.4%, alkaline phosphatase 119 U/L (normal <117 U/L). - Imaging: Chest x-ray showed findings consistent with COPD. Coding Level of Care Code Est Pt Level 4 (03416) Complex EM visit Add On G2211 Diagnoses Preoperative examination Z01.818 Hyponatremia E87.1 Pure hypercholesterolemia, unspecified E78.00 COPD (chronic obstructive pulmonary disease) J44.9 Vitamin D deficiency E55.9 Hypertension I10 Additional Codes GONZALO-7 Assessment Billing - GONZALO-7 Assessment Tool: GONZALO-7 Assessment 59820 ([id number]) PHQ-9 - 42582 - PHQ-9 Billing: Yes ([id number]) Time Spent (min) 50 Assessment & Plan Assessment & Plan (1) Preoperative examination: Code(s): Z01.818 - Encounter for other preprocedural examination Category: Medical Plan: The patient is undergoing a preoperative evaluation for eye surgery, requiring basic blood work, EKG, and chest x-ray. The chest x-ray has been completed, showing COPD, and the patient needs to complete an EKG for surgical clearance. (2) Hyponatremia: Code(s): E87.1 - Hypo-osmolality and hyponatremia Category: Medical Plan: The patient's sodium level is slightly low at 134 mmol/L, and he has been advised to increase salt intake to address this. Condition is chronic and stable will continue to monitor. (3) Pure hypercholesterolemia, unspecified: Code(s): E78.00 - Pure hypercholesterolemia, unspecified Category: Medical Plan: The patient's total cholesterol is 201 mg/dL and LDL is 123 mg/dL. He has been advised to manage cholesterol levels through dietary changes rather than medication at this time. Condition is chronic and stable continue to monitor. (4) COPD (chronic obstructive pulmonary disease): Code(s): J44.9 - Chronic obstructive pulmonary disease, unspecified Category: Medical Plan: The patient has COPD, as indicated by a chest x-ray, and has been referred to pulmonology for further management. He is currently using an albuterol inhaler and may require additional inhaler therapy pending insurance approval. Condition is chronic and stable continue to monitor. (5) Vitamin D deficiency: Code(s): E55.9 - Vitamin D deficiency, unspecified Category: Medical Plan: The patient has been diagnosed with vitamin D deficiency and was prescribed a supplement, which he has not yet obtained due to cost concerns. Condition is chronic and stable will continue to monitor. (6) Hypertension: Code(s): I10 - Essential (primary) hypertension Category: Medical Plan: The patient's hypertension is managed with amlodipine, and his blood pressure was recorded at 144/75 mmHg during the visit. Condition is chronic and stable continue to monitor. Plan Plan Patient was informed and verbally consented to the use of an ambient scribe for clinic note documentation during this visit. 1. Preoperative Evaluation For Eye Surgery The patient is undergoing a preoperative evaluation for eye surgery, requiring basic blood work, EKG, and chest x-ray. The chest x-ray has been completed, showing COPD, and the patient needs to complete an EKG for surgical clearance. The patient's labs are at baseline/chronic he has a normal kidney function. There is no anemia noted. Normal white blood cell count. Normal potassium. He has chronic hyponatremia at 134 since 2021. Patient will have EKG performed once EKG is performed patient will be medically cleared for preop surgery for eye surgery. Regarding preop clearance the patient is at acceptable risk for proposed surgery. Reviewed with the patient that no surgery is completely free of risk and that this examination is to assist the surgeon and reviewing informed consent. 2. Hyponatremia The patient's sodium level is slightly low at 134 mmol/L, and he has been advised to increase salt intake to address this. 3. Hypercholesterolemia The patient's total cholesterol is 201 mg/dL and LDL is 123 mg/dL. He has been advised to manage cholesterol levels through dietary changes rather than medication at this time. 4. Chronic Obstructive Pulmonary Disease (Copd) The patient has COPD, as indicated by a chest x-ray, and has been referred to pulmonology for further management. He is currently using an albuterol inhaler and may require additional inhaler therapy pending insurance approval. 5. Vitamin D Deficiency The patient has been diagnosed with vitamin D deficiency and was prescribed a supplement, which he has not yet obtained due to cost concerns. 6. Hypertension The patient's hypertension is managed with amlodipine, and his blood pressure was recorded at 144/75 mmHg during the visit. During the visit, we discussed the need for preoperative clearance for the patient's upcoming eye surgery, including the completion of an EKG and review of recent lab work. We also reviewed his lab results, noting slight elevations in cholesterol and sodium levels, and discussed dietary modifications to address these issues. The patient was advised to continue using his albuterol inhaler for COPD management and to follow up with pulmonology. Medications: New fluticasone propion-salmeterol 250-50 mcg/dose (Advair Diskus) 1 inh inhalation BID 60 ea 0RF Discontinued jirtfgrfqyd-grbsimpqi-lmtzanrh 200-62.5-25 mcg (Trelegy Ellipta) Discontinued Reason: Doctor's Order 1 ea inhalation DAILY 60 ea 3RF Patient Instructions: - Increase salt intake to manage low sodium levels. - Follow a low-cholesterol diet to manage cholesterol levels. - Complete an EKG for surgical clearance. - Continue using albuterol inhaler as needed for COPD. - Follow up with pulmonology for COPD management. - Obtain vitamin D supplement from pharmacy when feasible.
[2024-11-04 09:08] VITALS: BP 160/84; PULSE 84; RESP 16; TEMP 36.8; O2SAT 94; BMI 19.2
--- OUTSIDE RECORDS SUMMARY | 2024-11-04 09:15 | XMS_ITS | Clinical Summary ---
Author Organization [facility] Facility Address [address] [place] [id number] Care Team Providers Care Sonography Technologist Name Role Phone Bernardo Crawford Jose De Jesus Primary Care Provider [phone] Family History Medical History Relation Comments Dementia [...] this topic Insurance [employer] Care Teams Sonography Technologist Relationship Specialty Start Date End Date Bernardo Crawford [address] [place] [id number] PCP - General 11/18/22
[2024-11-04 12:01] VITALS: BP 144/75
== END 2024-11-04 09:59 | disposition home or self-care (01) ==
LOC: HO.HMCSH 09:03
PROVIDERS: PCP Physician Assistant Medical; Visit Provider Physician Assistant Medical
DX: Z01.818 Encounter for other preprocedural examination (principal); E87.1 Hypo-osmolality and hyponatremia; E78.00 Pure hypercholesterolemia, unspecified; J44.9 Chronic obstructive pulmonary disease, unspecified; E55.9 Vitamin D deficiency, unspecified; I10 Essential (primary) hypertension

== ENCOUNTER → 2024-11-04 09:03 | Outpatient (BNVA) | payer MEDICARE, SELFPAY | PROVIDERS: PCP Physician Assistant Medical; Visit Provider Physician Assistant Medical | DX: Z01.818 Encounter for other preprocedural examination (principal); E87.1 Hypo-osmolality and hyponatremia; E78.00 Pure hypercholesterolemia, unspecified; J44.9 Chronic obstructive pulmonary disease, unspecified; E55.9 Vitamin D deficiency, unspecified; I10 Essential (primary) hypertension | CPT/HCPCS: 96127; 99212 ==

== ENCOUNTER → 2024-11-07 10:34 | Outpatient (REF) | payer MEDICARE, SELFPAY ==
--- NOTE | 2024-11-07 10:40 | ECG_ITS ---
Test Reason : COPD Blood Pressure : */* mmHG Vent. Rate : 74 BPM Atrial Rate : 74 BPM P-R Int : 150 ms QRS Dur : 76 ms QT Int : 402 ms P-R-T Axes : 38 24 67 degrees QTcB Int : 446 ms Normal sinus rhythm Minimal voltage criteria for LVH, may be normal variant ( Sokolow-Mitchell ) Borderline ECG When compared with ECG of 10-Nov-2022 09:13, Vent. rate has decreased by 37 bpm Nonspecific T wave abnormality no longer evident in Inferior leads Nonspecific T wave abnormality no longer evident in Lateral leads Referred By: Ciara Gamble Electronically Signed By: BRANDI JIMÉNEZ
== END ==
LOC: HO.CARD 10:34
PROVIDERS: PCP Physician Assistant Medical; Visit Provider Physician Assistant Medical
DX: J44.9 Chronic obstructive pulmonary disease, unspecified (principal)
CPT/HCPCS: 93005

== ENCOUNTER → 2024-11-07 10:40 | Outpatient (BNV) | payer MEDICARE, SELFPAY | PROVIDERS: PCP Physician Assistant Medical; Visit Provider Internal Medicine | DX: J44.9 Chronic obstructive pulmonary disease, unspecified (principal) | CPT/HCPCS: 93010 ==